=== PATIENT | male | born 1945 | race Caucasian/White ===

== ENCOUNTER 2017-02-13 11:42 | Inpatient (IN) | payer OTHER, MEDICARE ==
[~2017-02-13] VITALS: Ht 185.4 cm; Wt 82.2 kg
[~2017-02-13 11:42] MED LIST: AMCIN.1%T TOPICAL; ASPI81CH37 CHEW; ATOR1TAB18 PO; ATOR20TA15 PO; BACT800T5 PO; CIPR-9 PO; CLOP75TA PO; DONE10TA7 PO; DULO1CAP3 PO; DULO20 PO; FERR200T PO; GABA100C4 PO; GABA300C5 PO; GLIP5TAB8 PO; HYDR-3516 PO; HYDR-3533 PO; HYDR-3580 PO; ISOS30TA3 PO; LISI-519 PO; LOTR1CRE3 TOPICAL; METF1000 PO; METF500T PO; METO-426 PO; MIRT1TAB PO; MIRT30TA PO; OMEP20TA PO; PLAV75TA29 PO; PRIL20CA9 PO; SITA1TAB2 PO; SITA25 PO; TAMS5CAP PO; ZOFR4TAB PO
[2017-02-13 11:45] VITALS: BP 134/81; PULSE 78; RESP 16; TEMP 98.4; O2SAT 98
[2017-02-13 12:57] LABS: AUTOMATED NEUTROPHIL # 4.4 TH/MM3 (1.8-7.7); BASOPHIL % 0.5 % (0.0-2.0); EOSINOPHIL # 0.1 TH/MM3 (0-0.4); EOSINOPHIL % 1.8 % (0.0-4.0); HEMATOCRIT 39.3 % (39.0-51.0); LYMPHOCYTE # 1.6 TH/MM3 (1.0-4.8); MEAN CELL VOLUME 72.8 FL (80.0-100.0); MEAN CORPUSCULAR HEMOGLOBIN 23.3 PG (27.0-34.0); MONO % 6.9 % (0.0-8.0); NEUT % 66.8 % (16.0-70.0); PLATELET COUNT 272 TH/MM3 (150-450); RED CELL DISTRIBUTION WIDTH 17.6 % (11.6-17.2); WHITE BLOOD COUNT 6.6 TH/MM3 (4.0-11.0)
[2017-02-13] MEDS ORDERED: SODIUM CHLORIDE 0.9% FLUSH 10 ML FLUSH IVF PRN (13:00)
--- NOTE | 2017-02-13 13:05 | RADRPT ---
EXAM DATE/TIME: 02/13/2017 12:56 [facility] COMPARISON: CHEST SINGLE AP, August 31, 2016, 12:01. INDICATIONS : Chest pain and right arm numbness MEDICAL HISTORY : Myocardial infarction. Hypertension Hypercholesterolemia. Sleep Apnea, [place] SURGICAL HISTORY : CABG. Coronary artery stent. Nerve stimulator in back ENCOUNTER: Initial ACUITY: 2 days PAIN SCORE: 4/10 LOCATION: chest FINDINGS: A single view of the chest demonstrates the lungs to be symmetrically aerated without evidence of mas s, infiltrate or effusion. The heart is mildly enlarged. Median sternotomy wires. Stimulator device overlying the thoracic spine. Osseous structures are intact. CONCLUSION: Mild cardiomegaly. Clear lungs. Massimo Shaver Jr., MD on February 13, 2017 at 13:03 Board Certified Radiologist. This report was verified electronically.
[2017-02-13 13:07] LABS: CHLORIDE 97 MEQ/L (98-107); POTASSIUM 3.5 MEQ/L (3.5-5.1); SODIUM (NA) 132 MEQ/L (136-145)
[2017-02-13 13:10] LABS: ANION GAP 12 MEQ/L (5-15); BICARBONATE 22.6 MEQ/L (21.0-32.0)
[2017-02-13 13:17] LABS: HEMO FLAGS AUTO DIFF
[2017-02-13 13:23] VITALS: BP 121/75; PULSE 80; RESP 16; O2SAT 98
[2017-02-13 13:26] LABS: ALKALINE PHOSPHATASE 88 U/L (45-117); ALT (GPT) 24 U/L (12-78); AST (GOT) 12 U/L (15-37); BLOOD UREA NITROGEN 16 MG/DL (7-18); GLOMERULAR FILTRATION RATE 60 ML/MIN (>89); TOTAL BILIRUBIN ADULT 0.5 MG/DL (0.2-1.0)
[2017-02-13 13:27] LABS: APTT (PATIENT) 24.2 SEC (24.3-30.1); OVALOCYTES 1+ (NORMAL); PROTHROMBIN TIME - PATIENT 10.9 SEC (9.8-11.6); SCAN/DIFF AUTO DIFF CONFIRMED; TEARDROP RBCS 1+ (NORMAL)
--- NOTE | 2017-02-13 13:46 | PD ---
HPI Chief Complaint: Numbness/Tingling Time Seen by Provider: 12:01 Travel History International Travel<30 days: No Contact w/Intl Traveler<30days: No Traveled to known affect area: No History of Present Illness HPI This is a 71-year-old man who presents to the emergency department complaining of numbness and weakness or clumsiness in the right hand that started this morning when he woke up. He's never had previous similar symptoms. A history of CAD. Does have diabetes as well. He's had a previous CABG. He's recently seen by Dr. Santana who describes abnormal heart rhythms for which she was referred to an ad copy writer. He has not followed up yet. He otherwise has been feeling generally well and healthy. No other complaints. History Past Medical History Narrative Medical CAD, CABG Diabetes Hypertension on hyperlipidemia Chronic back pain SVT Influenza Vaccination: Yes Social History Alcohol Use: No Tobacco Use: No Allergies-Medications (Allergen,Severity, Reaction): Coded Allergies: No Known Allergies (Verified , 05/14/16) Reported Meds & Prescriptions Reported Meds & Active Scripts Active Reported Atorvastatin (Atorvastatin Calcium) 80 Mg Tab 80 Mg PO HS Metformin (Metformin HCl) 1,000 Mg Tab 1,000 Mg PO BIDPC With meals Glipizide 5 Mg Tab 7.5 Mg PO BIDAC Take 30 minutes before a meal Donepezil 10 Mg Tab 10 Mg PO HS Januvia (Sitagliptin Phosphate) 100 Mg Tab 100 Mg PO DAILY Duloxetine DR (Duloxetine HCl) 60 Mg Capdr 60 Mg PO DAILY Gabapentin 300 Mg Cap 300 Mg PO TID Lisinopril 5 Mg Tab 5 Mg PO DAILY Omeprazole 20 Mg Tab 20 Mg PO BID Metoprolol Tartrate 75 Mg Tab 75 Mg PO BID Plavix (Clopidogrel Bisulfate) 75 Mg Tab 75 Mg PO DAILY Review of Systems Except as stated in HPI: all other systems reviewed are Neg Physical Exam Narrative GENERAL: Well-appearing 71 year-old woman, no acute distress. SKIN: Focused skin assessment warm/dry. HEAD: Atraumatic. Normocephalic. EYES: Pupils equal and round. No scleral icterus. No injection or drainage. ENT: No nasal bleeding or discharge. Mucous membranes pink and moist. NECK: Trachea midline. No JVD. CARDIOVASCULAR: Regular rate and rhythm. No murmur appreciated. RESPIRATORY: No accessory muscle use. Clear to auscultation. Breath sounds equal bilaterally. GASTROINTESTINAL: Abdomen soft, non-tender, nondistended. Hepatic and splenic margins not palpable. MUSCULOSKELETAL: No obvious deformities. No clubbing. No cyanosis. No edema. NEUROLOGICAL: Awake and alert. No obvious cranial nerve deficits. Abnormal sensation in the distal extremity was particularly in the first second third digits on the palmar side. Weakness in compo caster strength. Weakness and opposition of the thumb. PSYCHIATRIC: Appropriate mood and affect; insight and judgment normal. Data Data Last Documented VS Vital Signs Date Time Temp Pulse Resp B/P (MAP) Pulse Ox O2 Delivery O2 Flow Rate FiO2 02/13/17 13:23 16 98 Room Air 02/13/17 13:23 80 121/75 (90) 02/13/17 11:45 98.4 Orders Orders Electrocardiogram (02/13/17 12:47) Prothrombin Time / Inr (Pt) (02/13/17 12:47) Act Partial Throm Time (Ptt) (02/13/17 12:47) Complete Blood Count With Diff (02/13/17 12:47) Comprehensive Metabolic Panel (02/13/17 12:47) Troponin I (02/13/17 12:47) Chest, Single Ap (02/13/17 12:47) Ecg Monitoring (02/13/17 12:47) Iv Access Insert/Monitor (02/13/17 12:47) Oximetry (02/13/17 12:47) Sodium Chloride 0.9% Flush (Ns Flush) (02/13/17 13:00) Ct Brain W/O Iv Contrast(Rout) (02/13/17 ) Insulin Aspart Inj (Novolog Inj) (02/13/17 14:30) Admit Order (Ed Use Only) (02/13/17 ) Consult Neurology (02/13/17 ) Labs Laboratory Tests Test 02/13/17 12:00 White Blood Count 6.6 TH/MM3 Red Blood Count 5.40 MIL/MM3 Hemoglobin 12.6 GM/DL Hematocrit 39.3 % Mean Corpuscular Volume 72.8 FL Mean Corpuscular Hemoglobin 23.3 PG Mean Corpuscular Hemoglobin Concent 32.0 % Red Cell Distribution Width 17.6 % Platelet Count 272 TH/MM3 Mean Platelet Volume 8.9 FL Neutrophils (%) (Auto) 66.8 % Lymphocytes (%) (Auto) 24.0 % Monocytes (%) (Auto) 6.9 % Eosinophils (%) (Auto) 1.8 % Basophils (%) (Auto) 0.5 % Neutrophils # (Auto) 4.4 TH/MM3 Lymphocytes # (Auto) 1.6 TH/MM3 Monocytes # (Auto) 0.5 TH/MM3 Eosinophils # (Auto) 0.1 TH/MM3 Basophils # (Auto) 0.0 TH/MM3 CBC Comment AUTO DIFF Differential Comment AUTO DIFF CONFIRMED Tear Drop Cells 1+ Ovalocytes 1+ Prothrombin Time 10.9 SEC Prothromb Time International Ratio 1.0 RATIO Activated Partial Thromboplast Time 24.2 SEC Blood Urea Nitrogen 16 MG/DL Creatinine 1.20 MG/DL Random Glucose 487 MG/DL Total Protein 7.8 GM/DL Albumin 3.6 GM/DL Calcium Level 9.5 MG/DL Alkaline Phosphatase 88 U/L Aspartate Amino Transf (AST/SGOT) 12 U/L Alanine Aminotransferase (ALT/SGPT) 24 U/L Total Bilirubin 0.5 MG/DL Sodium Level 132 MEQ/L Potassium Level 3.5 MEQ/L Chloride Level 97 MEQ/L Carbon Dioxide Level 22.6 MEQ/L Anion Gap 12 MEQ/L Estimat Glomerular Filtration Rate 60 ML/MIN Troponin I LESS THAN 0.02 NG/ML MDM Medical Decision Making Medical Screen Exam Complete: Yes Emergency Medical Condition: Yes Interpretation(s) My review of EKG: Normal sinus rhythm at a rate of 76, leftward axis, normal normal, nonspecific lateral ST depressions of unclear etiology. No definite evidence of acute ischemia. Differential Diagnosis CVA, radiculopathy, paresthesias, neurapraxia, other Narrative Course Medical decision making This is a 71 year-old woman presents emergent arm weakness and numbness and tingling in his right arm. I spoke with Dr. Santana, the abnormal finding on his Holter monitor was in SVT that he sustained for 4 minutes. He did not have A. fib. He has some risk factors for stroke including CAD and diabetes. He has a spinal stimulator which precludes MRI in the emergency department. We'll check labs, CT, x-ray, will plan for admission. He could potentially have an MRI 2-year-old shot at all. He does not how to do this. Ischemic try to get the remote, and hematocrit contact the electro mechanical technician. Diagnosis Primary Impression: Arm paresthesia, right Viel,Jourdan C. MD Feb 13, 2017 13:46
--- NOTE | 2017-02-13 13:52 | RADRPT ---
EXAM DATE/TIME: 02/13/2017 13:35 [facility] COMPARISON: CT BRAIN W/O CONTRAST, September 19, 2015, 21:36. INDICATIONS : Right forearm and hand numbness since this morning. Evaluate for cerebrovascular accident. RADIATION DOSE: 65.05 CTDIvol (mGy) MEDICAL HISTORY : Dementia. Myocardial infarction. Cerebrovascular disease.Hypertension. SURGICAL HISTORY : CABG Appendectomy. ENCOUNTER: Initial ACUITY: 1 day PAIN SCALE: 0/10 LOCATION: cranial TECHNIQUE: Multiple contiguous axial images were obtained of the head. Using automated exposure control and adj ustment of the mA and/or kV according to patient size, radiation dose was kept as low as reasonably a chievable to obtain optimal diagnostic quality images. DICOM format image data is available electro nically for review and comparison. FINDINGS: There are prominent internal carotid artery calcifications bilaterally. Ventricles and cisterns are o f normal size and configuration. No hemorrhage, infarct, or mass. CONCLUSION: No acute disease. Carlos Hampton MD on February 13, 2017 at 13:50 Board Certified Radiologist. This report was verified electronically.
[2017-02-13] MEDS ORDERED: INSULIN ASPART 1,000 UNITS/10 ML VIAL SQ ONE (14:30)
[2017-02-13] MEDS ORDERED: SODIUM CHLORIDE 0.9% FLUSH 5 ML FLUSH IV FLUSH PRN (14:30)
[2017-02-13] MEDS ORDERED: GLUCAGON 1 MG/ML VIAL OTHER PRN (14:30)
[2017-02-13] MEDS ORDERED: DEXTROSE 50% IN WATER 50 ML VIAL(D50) IV PUSH PRN (14:30)
[2017-02-13 14:52] VITALS: BP 129/77; PULSE 78; RESP 16; O2SAT 98
[2017-02-13] MEDS: ENOXAPARIN SODIUM 40 MG/0.4 ML SYRINGE SQ SCH (15:21)
[2017-02-13] MEDS ORDERED: INSULIN ASPART SUPPLEMENTAL SCALE SQ SCH (16:00)
[2017-02-13 17:17] VITALS: O2SAT 98
--- NOTE | 2017-02-13 18:14 | HHI.HP ---
[facility] Service [facility] Primary Care Physician Leo Raines MD Admission Diagnosis right arm weakness and numbness Diagnoses: (1) Right arm numbness and weakness Diagnosis: Principal (2) Diabetes mellitus with hyperglycemia Diagnosis: Principal Chief Complaint: R arm numbness and weakness Travel History International Travel<30 Days: No Contact w/Intl Traveler <30 Da: No Traveled to Known Affected Are: No History of Present Illness Written by Chel Haile PA-C acting as scribe for Dr. Meeks on 02/13 at ~ 1740. 71-year-old male with history of coronary artery disease, SVT, diabetes, hypertension, hyperlipidemia, chronic back pain with nerve stimulator presents with complaint of right arm numbness and weakness/loss of coordination. The patient states he woke up at 7:30 AM and noticed that his right hand was numb and then further noticed that he was numb over the right forearm. He states he has loss of coordination/weakness in the right hand primarily between the right thumb and index finger stating he cannot turn the ignition in the car or pull the lever. He states he spilled coffee and water on himself because of it this morning. Denies any injury to his right elbow. 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 He denies any headache, altered speech, dysphagia, lightheadedness, or dizziness. He denies any recent fevers or chills, cold symptoms. Denies any shortness of breath. He states he had several sharp pains in his chest yesterday which is normal for him but also states his heart was skipping. He follows with microbiology lab manager Dr. Santana. Patient denies any recent medication changes and has been compliant with his medications. Review of Systems Except as stated in HPI: all other systems reviewed are Neg Past Family Social History Past Medical History Coronary artery disease Diabetes Hypertension Hyperlipidemia Chronic back pain SVT dementia Past Surgical History 5 vessel CABG, stents 5 back surgeries Left eye surgery Left shoulder surgery Appendectomy Reported Medications Atorvastatin (Atorvastatin Calcium) 80 Mg Tab 80 Mg PO HS Metformin (Metformin HCl) 1,000 Mg Tab 1,000 Mg PO BIDPC With meals Glipizide 5 Mg Tab 7.5 Mg PO BIDAC Take 30 minutes before a meal Donepezil 10 Mg Tab 10 Mg PO HS Januvia (Sitagliptin Phosphate) 100 Mg Tab 100 Mg PO DAILY Duloxetine DR (Duloxetine HCl) 60 Mg Capdr 60 Mg PO DAILY Gabapentin 300 Mg Cap 300 Mg PO TID Lisinopril 5 Mg Tab 5 Mg PO DAILY Omeprazole 20 Mg Tab 20 Mg PO BID Metoprolol Tartrate 75 Mg Tab 75 Mg PO BID Plavix (Clopidogrel Bisulfate) 75 Mg Tab 75 Mg PO DAILY Allergies: Coded Allergies: No Known Allergies (Verified , 05/14/16) Family History Father: of CHF at age 81. Mother: Vascular dementia Middle sister: 5-6 months ago from an IN Older sister: Alzheimer's Social History Denies history of tobacco use. Denies alcohol use. Denies illicit drug use. Physical Exam Vital Signs Vital Signs Date Time Temp Pulse Resp B/P (MAP) Pulse Ox O2 Delivery O2 Flow Rate FiO2 02/13/17 17:17 98 21 02/13/17 15:08 02/13/17 14:52 78 16 129/77 (94) 98 Room Air 02/13/17 13:23 16 98 Room Air 02/13/17 13:23 80 16 121/75 (90) 98 Room Air 02/13/17 11:45 98.4 78 16 134/81 (98) 98 Physical Exam GENERAL: This is a well-nourished, well-developed patient, in no apparent distress. SKIN: No rashes, ecchymoses or lesions. Warm and dry. HEAD: Atraumatic. Normocephalic. EYES: Pupils equal round. ENT: MMM. Airway patent. NECK: Trachea midline. No carotid bruits. CARDIOVASCULAR: Regular rate and rhythm without murmurs, gallops, or rubs. RESPIRATORY: Clear to auscultation. Breath sounds equal bilaterally. No wheezes , rales, or rhonchi. GASTROINTESTINAL: Abdomen soft, non-tender, nondistended. MUSCULOSKELETAL: No lower extremity edema bilaterally. NEUROLOGICAL: Awake and alert. No obvious cranial nerve deficits. Normal speech. Decreased sensation over the R hand digits compared to left. Weak in R hand compared to normal strength on Left. Equal patellar reflexes bilaterally. R leg seems slightly weaker than left. PSYCHIATRIC: Mildly anxious mood with tearful affect. Laboratory Laboratory Tests Test 02/13/17 12:00 White Blood Count 6.6 Red Blood Count 5.40 Hemoglobin 12.6 Hematocrit 39.3 Mean Corpuscular Volume 72.8 Mean Corpuscular Hemoglobin 23.3 Mean Corpuscular Hemoglobin Concent 32.0 Red Cell Distribution Width 17.6 Platelet Count 272 Mean Platelet Volume 8.9 Neutrophils (%) (Auto) 66.8 Lymphocytes (%) (Auto) 24.0 Monocytes (%) (Auto) 6.9 Eosinophils (%) (Auto) 1.8 Basophils (%) (Auto) 0.5 Neutrophils # (Auto) 4.4 Lymphocytes # (Auto) 1.6 Monocytes # (Auto) 0.5 Eosinophils # (Auto) 0.1 Basophils # (Auto) 0.0 CBC Comment AUTO DIFF Differential Comment AUTO DIFF CONFIRMED Tear Drop Cells 1+ Ovalocytes 1+ Prothrombin Time 10.9 Prothromb Time International Ratio 1.0 Activated Partial Thromboplast Time 24.2 Blood Urea Nitrogen 16 Creatinine 1.20 Random Glucose 487 Total Protein 7.8 Albumin 3.6 Calcium Level 9.5 Alkaline Phosphatase 88 Aspartate Amino Transf (AST/SGOT) 12 Alanine Aminotransferase (ALT/SGPT) 24 Total Bilirubin 0.5 Sodium Level 132 Potassium Level 3.5 Chloride Level 97 Carbon Dioxide Level 22.6 Anion Gap 12 Estimat Glomerular Filtration Rate 60 Troponin I LESS THAN 0.02 Result Diagram: 02/13/17 1200 02/13/17 1200 Imaging Last Impressions Chest X-Ray 02/13/17 1247 Signed Impressions: Service Date/Time: Monday, February 13, 2017 12:56 - CONCLUSION: Mild cardiomegaly. Clear lungs. Massimo Shaver Jr., MD Head CT 02/13/17 0000 Signed Impressions: Service Date/Time: Monday, February 13, 2017 13:35 - CONCLUSION: No acute disease. MD Paul Milan VTE Risk Assessment Paul VTE Risk Assessment: Mod/High Risk (score >= 2) Caprini Risk Assessment Model Point Value = 1 Point Value = 2 Point Value = 3 Point Value = 5 Age 41-60 Minor surgery BMI > 25 kg/m2 Swollen legs Varicose veins or History of unexplained or recurrent spontaneous Oral contraceptives or hormone replacement Sepsis (< 1 month) Serious lung disease, including pneumonia (< 1 month) Abnormal pulmonary function Acute myocardial infarction Congestive heart failure (< 1 month) History of inflammatory bowel disease Medical patient at bed rest Age 61-74 Arthroscopic surgery Major open surgery (> 45 min) Laparoscopic surgery (> 45 min) Malignancy Confined to bed (> 72 hours) Immobilizing plaster cast Central venous access Age >= 75 History of VTE Family history of VTE Factor V Leiden Prothrombin [id number] Lupus anticoagulant Anticardiolipin antibodies Elevated serum homocysteine Heparin-induced thrombocytopenia Other congenital or acquired thrombophilia Stroke (< 1 month) Elective arthroplasty Hip, pelvis, or leg fracture Acute spinal cord injury (< 1 month) Prophylaxis Regimen Total Risk Factor Score Risk Level Prophylaxis Regimen 0-1 Low Early ambulation 2 Moderate Order ONE of the following: *Sequential Compression Device (SCD) *Heparin 5000 units SQ BID 3-4 Higher Order ONE of the following medications: *Heparin 5000 units SQ TID *Enoxaparin/Lovenox 40 mg SQ daily (WT < 150 kg, CrCl > 30 mL/min) *Enoxaparin/Lovenox 30 mg SQ daily (WT < 150 kg, CrCl > 10-29 mL/min) *Enoxaparin/Lovenox 30 mg SQ BID (WT < 150 kg, CrCl > 30 mL/min) AND/OR *Sequential Compression Device (SCD) 5 or more Highest Order ONE of the following medications: *Heparin 5000 units SQ TID (Preferred with Epidurals) *Enoxaparin/Lovenox 40 mg SQ daily (WT < 150 kg, CrCl > 30 mL/min) *Enoxaparin/Lovenox 30 mg SQ daily (WT < 150 kg, CrCl > 10-29 mL/min) *Enoxaparin/Lovenox 30 mg SQ BID (WT < 150 kg, CrCl > 30 mL/min) AND *Sequential Compression Device (SCD) Assessment and Plan Assessment and Plan 71-year-old male with: Numbness and weakness in right arm: Possible stroke. Head CT normal. -Neuro consulted. Dr. Jefferson who has ordered MRI and MRA brain without contrast as patient is able to turn off his nerve stimulator. -Carotid US -Echo -B12 -PT and OT consults -Continue Plavix -Start baby aspirin daily -Lipid profile -Permissive HTN. -Neuro checks Palpitations: h/o SVT. EKG with nonspecific anterior and lateral ST-T changes which were present on past EKG on 09/15/16. Patient had some sharp chest pains yesterday but this is normal for him. Troponin is normal. Chest x-ray personally interpreted with mild cardiomegaly but no acute pulmonary abnormalities. Sternal wires present. -Monitor on telemetry -Continue metoprolol Diabetes with hyperglycemia: BGL 487. Patient received 6 units of regular insulin in the ED -Hemoglobin A1c -Hold oral medications -Accu-checks with SSI GI prophylaxis: Continue home omeprazole. DVT prophylaxis: Lovenox and SCDs Discussed Condition With ED physician, patient Physician Certification 2 Midnight Certification Type: Admission for Inpatient Services Order for Inpatient Services The services are ordered in accordance with Medicare regulations or non- Medicare payer requirements, as applicable. In the case of services not specified as inpatient-only, they are appropriately provided as inpatient services in accordance with the 2-midnight benchmark. Estimated LOS (days): 2 days is the estimated time the patient will need to remain in the hospital, assuming treatment plan goals are met and no additional complications. Post-Hospital Plan: Home Notes: This note was transcribed by scribe [Chel Haile PA-C]. I, Dr. Matti Meeks personally performed the history, physical exam, and medical decision making; and confirmed the accuracy of the information in the transcribed note. Authenticated by Dr. Matti Meeks on 02/14/17 at 19:52. Chel Haile Feb 13, 2017 18:14 Matti Meeks MD Feb 14, 2017 19:53
[2017-02-13 20:00] VITALS: BP 105/67; PULSE 86; RESP 16; TEMP 98.6; O2SAT 93
[2017-02-13 20:50] VITALS: O2SAT 95
[2017-02-13] MEDS ORDERED: ACETAMINOPHEN 325 MG TAB PO ONE (22:00)
[2017-02-13] MEDS: ATORVASTATIN 40 MG TAB PO SCH (22:06)
[2017-02-13] MEDS: DONEPEZIL HCL 5 MG TAB PO SCH (22:06)
[2017-02-13] MEDS: SODIUM CHLORIDE 0.9% FLUSH 5 ML FLUSH IV FLUSH SCH (22:07)
[2017-02-13] MEDS: METOPROLOL TARTRATE 25 MG TAB PO SCH (22:07)
[2017-02-13] MEDS: PANTOPRAZOLE SOD 20 MG DELAYED RELEASE TAB PO SCH (22:07)
[2017-02-13] MEDS: INSULIN ASPART SUPPLEMENTAL SCALE SQ SCH (22:12)
[2017-02-13 22:26] LABS: HEMOGLOBIN A1a 1.4 %; HEMOGLOBIN A1b 1.5 %; HEMOGLOBIN Ao 72.5 %; HEMOGLOBIN F 2.2 %; HEMOGLOBIN LA1C 4.8 %; HEMOGLOBIN P3 5.9 %
[2017-02-14] VITALS (7 sets, daily range): BP systolic 97–121; BP diastolic 63–87; PULSE 56–83; RESP 16–20; TEMP 96.4–98.4; O2SAT 93–96
--- NOTE | 2017-02-14 08:23 | MB ---
cc: RYLEE CAMACHO M.D. DATE OF CONSULTATION: 02/13/2017 1944 REASON FOR CONSULTATION Right-sided upper extremity weakness. HISTORY OF PRESENT ILLNESS The patient is a 71-year-old man with a history of heart disease, bypass surgery, SVT, diabetes, hypertension, hyperlipidemia, chronic back pain with spinal cord stimulator, came in with woke up with right arm numbness and weakness. He noted when he tried to turn the car on or put it in gear he was not able to turn it on or put it in gear, feels numb. Denies any symptoms in the face or in the leg. PAST MEDICAL HISTORY He has a history as stated. The patient also probably has some mild dementia as well as some mild neuropathy. PAST SURGICAL HISTORY 1. CABG x 5 vessels and stents. 2. Five back surgeries. 3. Left eye surgery. He had a spring that he was changing a device in the light fixture, hit his left eye. 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 4. He has had left shoulder surgery. MEDICATION Home medicines: 1. Lipitor. 2. Metformin. 3. Glipizide. 4. Donepezil. 5. Januvia. 6. Duloxetine. 7. Gabapentin. 8. Lisinopril. 9. Omeprazole. 10. Metoprolol. 11. Plavix. ALLERGIES None reported. FAMILY HISTORY CHF in the father ___ with dementia in the mother. Sister of an GA and older sister of Alzheimer's. SOCIAL HISTORY He is . Does not smoke, does not drink or use any illicit drugs. PHYSICAL EXAMINATION VITAL SIGNS: Temperature 98.4, pulse 78, respiratory rate 16, blood pressure 129/77, sating 98% on room air. NECK: Neck is supple. Do not appreciate any significant bruits. HEART: Regular. NEURO: He is awake, alert, fluent. Right pupil is reactive. Left pupil is anisocoric, legally blind in the left eye but visual johnson are full on the right. Face symmetrical. Tongue midline. Motor ambriz he has significant weakness in the internal medicine veterinary technician and finger strength in the right hand. He has decreased sensation in the right hand. There is no significant drift, proximally he is intact. There is no leg lag. Toes withdraws. DTRs are 1+. Gait withheld. Cerebellar normal but slow on [id number] on the right. IMAGING STUDIES CT head no acute findings. Chest x-ray mild cardiomegaly. LABORATORY DATA Hemoglobin 12.6, platelets 272,000. Coag panel PTT 24.2. Chemistries, glucose 487. His hemoglobin A1c is pending. IMPRESSION Possible stroke in a 71-year-old man with multiple risk factors. He does have right hand weakness. He does have a spinal cord stimulator but he has this device and states ___ turn it off he can have an MRI of the brain and [id number], he will undergo carotid ultrasound as well. Hemoglobin A1c, lipid panel are pending. An echocardiogram is also in order. There will be PT and OT. He is already on Plavix. I would add a baby aspirin which he can take for 3 months with the Plavix and then we will let him resume on Plavix, depending on what the imaging shows. Currently he is on Lovenox for DVT prophylaxis. Currently on Lipitor but continue his Aricept, BP management and likely discharge planning if stable and workup completed in 24 hours. MD GREGORY French/CASI /6:41 PM /7:55 AM
[2017-02-14] MEDS: INSULIN ASPART SUPPLEMENTAL SCALE SQ SCH ×4 (08:27→20:49)
[2017-02-14] MEDS: ASPIRIN 81 MG CHEW TAB PO SCH (08:28)
[2017-02-14] MEDS: DULoxetine HCl DR 60 MG CAP PO SCH (08:28)
[2017-02-14] MEDS: PANTOPRAZOLE SOD 20 MG DELAYED RELEASE TAB PO SCH ×2 (08:28→20:48)
[2017-02-14] MEDS: CLOPIDOGREL 75 MG TAB PO SCH (08:28)
[2017-02-14] MEDS: METOPROLOL TARTRATE 25 MG TAB PO SCH ×2 (08:28→20:48)
[2017-02-14] MEDS: SODIUM CHLORIDE 0.9% FLUSH 5 ML FLUSH IV FLUSH SCH ×2 (08:29→20:55)
--- NOTE | 2017-02-14 08:38 | EKG ---
Date Performed: 02/13/2017 Time Performed: 13:06:22 PTAGE: 71 years EKG: Sinus rhythm NONSPECIFIC ST & T-WAVE ABNORMALITY ABNORMAL ECG PREVIOUS TRACING : 09/19/2015 20.06 No significant change from previous tracing noted. DOCTOR: Hernan Finney Interpretating Date/Time 02/14/2017 08:37:35
[2017-02-14 09:46] LABS: HDL CHOLESTEROL 28.5 MG/DL (40.0-60.0)
--- NOTE | 2017-02-14 10:56 | RADRPT ---
EXAM DATE/TIME: 02/14/2017 10:11 [facility] COMPARISON: No previous studies available for comparison. INDICATIONS : Transient ischemic attack. MEDICAL HISTORY : Myocardial infarction. Hypertension. Hypercholesterolemia. Glaucoma. CVA. Alzheimer's. coronary arter y disease. anticoagulant therapy. gerd. kidney stones. skin cancer. SURGICAL HISTORY : Appendectomy. CABG. Cardiac stents. Nerve stimulator implant. Right knee surgery. Right shoulder surgery. Left eye surgery. ENCOUNTER: Initial ACUITY: 1 day PAIN SCORE: 0/10 LOCATION: Bilateral neck PEAK SYSTOLIC VELOCITIES (cm/sec): ICA/CCA RATIO: Right: 1.1 Left: 0.8 ICA: Right: 95 Left: 84 CCA: Right: 85 Left: 103 ECA: Right: 78 Left: 81 VERTEBRAL: Right: 44 antegrade Left: 36 antegrade Elevated flow velocities and ICA/CCA ratios have been found to correlate with increased degrees of vessel stenosis, calculated as percentage of diameter relative to a normal segment of distal ICA/CCA FINDINGS: RIGHT CAROTID: No significant stenosis is visualized. There is mild atherosclerotic plaquing at the bifurcation. Th e waveforms are within normal limits. LEFT CAROTID: No significant stenosis is visualized. There is mild calcified atherosclerotic plaque at the bifurcat ion. The waveforms are within normal limits. VERTEBRAL ARTERIES: Antegrade flow is seen in both vertebral arteries. MISCELLANEOUS: None. CONCLUSION: 1. Calcified atherosclerotic plaque at the bifurcations. No hemodynamically significant carotid arter y stenosis identified. Ag Anderson MD on February 14, 2017 at 10:53 Board Certified Radiologist. This report was verified electronically.
[2017-02-14] MEDS: ENOXAPARIN SODIUM 40 MG/0.4 ML SYRINGE SQ SCH (15:51)
--- NOTE | 2017-02-14 16:16 | RADRPT ---
EXAM DATE/TIME: 02/14/2017 15:19 [facility] COMPARISON: MRI BRAIN W & W/O CONTRAST, October 17, 2013, 11:13. INDICATIONS : CVA. Right sided weakness. MEDICAL HISTORY : Hypertension. Diabetes mellitus type 2. SURGICAL HISTORY : Appendectomy. Neurostimulator, lower back and left shoulder. ENCOUNTER: Initial ACUITY: 1 day PAIN SCORE: 0/10 LOCATION: Head. Please note a normal MRA of the brain does not entirely exclude the possibility of a small aneurysm, nor the possibility of distal intracranial vessel disease. TECHNIQUE: 3D time of flight MRA was performed. Source images, multiplanar STS MIP, and 3D volume MIP reconstru ctions were reviewed. FINDINGS: There is excellent visualization of the major intracranial arteries out to the second-order branch ve ssels. There is no evidence for aneurysm, vessel truncation or stenosis, and no evidence for vascula r malformation. CONCLUSION: 1. Negative examination. Ag Anderson MD on February 14, 2017 at 16:13 Board Certified Radiologist. This report was verified electronically.
--- NOTE | 2017-02-14 16:19 | RADRPT ---
EXAM DATE/TIME: 02/14/2017 15:19 [facility] COMPARISON: MRI BRAIN W & W/O CONTRAST, October 17, 2013, 11:13. INDICATIONS : CVA. Right sided numbness. MEDICAL HISTORY : Diabetes mellitus type 2. Hypertension. SURGICAL HISTORY : Appendectomy. Neurostimulator, lower back and left shoulder. ENCOUNTER: Initial ACUITY: 1 day PAIN SCORE: 0/10 LOCATION: Head. TECHNIQUE: Multiplanar, multisequence MRI of the brain was performed without contrast. FINDINGS: CEREBRUM: The ventricles are normal for age. No evidence of midline shift, mass lesion, hemorrhage or acute in farction. No extraaxial fluid collections are seen. The pituitary gland and suprasellar cistern are normal in configuration. WHITE MATTER: There some scattered areas of increased T2 signal consistent with mild microvascular ischemic demyeli cocopah change. No significant signal abnormalities are seen in the white matter. POSTERIOR FOSSA: The cerebellum and brainstem are intact. The 4th ventricle is midline. The cerebellopontine angle is unremarkable. The cerebellar tonsils are normal in position. DIFFUSION IMAGING: No focal areas of restricted diffusion are seen. No evidence of acute infarction. EXTRACRANIAL: The visualized portions of the orbits and paranasal sinuses are unremarkable. CONCLUSION: 1. No acute intracranial abnormality. 2. Nonspecific white matter changes. 3. Stable compared to previous dated 10/17/13. Ag Anderson MD on February 14, 2017 at 16:14 Board Certified Radiologist. This report was verified electronically.
[2017-02-14] MEDS ORDERED: INSULIN HUMAN REGULAR 1,000 UNITS/10 ML VIAL IV PUSH ONE (16:30)
--- NOTE | 2017-02-14 16:46 | ECHRPT ---
Indication: CVA/TIA CONCLUSIONS Normal left ventricular size. Wall thickness is normal. No regional wall motion abnormalities are present. The left atrial size is moderately dilated. Mild aortic dilatation at the level of the sinuses of Valsalva. Dilated proximal ascending aorta. Mild thickening of the mitral valve leaflets. Moderate mitral valve regurgitation. No mitral valve stenosis. Phaf-la-uctnlocu aortic valve regurgitation. Aortic valve sclerosis is present. There is mild tricuspid valve regurgitation. The estimated pulmonary arterial pressure is 35 mmHg. The pulmonary valve is not well visualized. BP: 103 / 65 HR: 78 Rhythm: Other MEASUREMENTS (Male / Female) Normal Values Technical Quality:Fair 2D ECHO LV Diastolic Diameter PLAX 5.0 cm 4.2 - 5.9 / 3.9 - 5.3 cm LV Systolic Diameter PLAX 3.7 cm IVS Diastolic Thickness 1.0 cm 0.6 - 1.0 / 0.6 - 0.9 cm LVPW Diastolic Thickness 1.0 cm 0.6 - 1.0 / 0.6 - 0.9 cm LV Relative Wall Thickness 0.4 RV Internal Dim ED PLAX 3.8 cm LVOT Diameter 2.3 cm LA Systolic Diameter LX 4.7 cm 3.0 - 4.0 / 2.7 - 3.8 cm LV Ejection Fraction MOD 4C 48.9 % LV Cardiac Index MOD 4C 1657.2 cm/minm LV Ejection Fraction 4C AL 51.6 % LV Cardiac Index 4C AL 1846.5 cm/minm M-MODE Aortic Root Diameter MM 4.4 cm AV Cusp Separation MM 2.6 cm DOPPLER AV Peak Velocity 105.0 cm/s AV Peak Gradient 4.4 mmHg AI Peak Velocity 366.7 cm/s AI Peak Gradient 53.8 mmHg AI Pressure Half Time 1792.3 ms LVOT Peak Velocity 93.8 cm/s LVOT Peak Gradient 3.5 mmHg AV Area Cont Eq pk 3.6 cm MV Area PHT 4.0 cm Mitral E Point Velocity 63.7 cm/s Mitral A Point Velocity 31.1 cm/s Mitral E to A Ratio 2.0 LV E' Lateral Velocity 15.4 cm/s Mitral E to LV E' Lateral Ratio 4.1 LV E' Septal Velocity 5.5 cm/s Mitral E to LV E' Septal Ratio 11.7 TV Peak Velocity 243.0 cm/s TR Peak Velocity 251.0 cm/s TR Peak Gradient 25.2 mmHg PV Peak Velocity 65.2 cm/s PV Peak Gradient 1.7 mmHg FINDINGS LEFT VENTRICLE The left ventricular systolic function is normal with an estimated ejection fraction in the range of 60-65%. Normal left ventricular size. Wall thickness is normal. No regional wall motion abnormalities are present. LEFT ATRIUM The left atrial size is moderately dilated. RIGHT ATRIUM The right atrial size is normal. ATRIAL SEPTUM Normal atrial septal thickness without atrial level shunting by limited color doppler interrogation. AORTA Mild aortic dilatation at the level of the sinuses of Valsalva. Dilated proximal ascending aorta. MITRAL VALVE Mild thickening of the mitral valve leaflets. Moderate mitral valve regurgitation. No mitral valve stenosis. AORTIC VALVE Xlom-fr-aumaoxbh aortic valve regurgitation. Aortic valve sclerosis is present. Trileaflet aortic valve. TRICUSPID VALVE There is mild tricuspid valve regurgitation. The estimated pulmonary arterial pressure is 35 mmHg. PULMONARY VALVE The pulmonary valve is not well visualized. VESSELS The inferior vena cava is normal in size. PERICARDIUM No pericardial effusion. Jourdan Murry MD, FACC (Electronically Signed) Final Date:14 February 2017 16:45
[2017-02-14 17:04] LABS: POTASSIUM 3.8 MEQ/L (3.5-5.1)
[2017-02-14 17:08] LABS: BICARBONATE 27.6 MEQ/L (21.0-32.0)
[2017-02-14] MEDS: glipiZIDE 5 MG TAB PO SCH (17:30)
--- NOTE | 2017-02-14 19:59 | HHI.PR ---
Objective Vital Signs Date Time Temp Pulse Resp B/P (MAP) Pulse Ox O2 Delivery O2 Flow Rate FiO2 02/14/17 16:00 96.8 64 19 109/75 (86) 96 02/14/17 12:00 97.2 56 20 102/87 (92) 94 02/14/17 10:14 95 21 02/14/17 08:00 96.4 62 18 121/76 (91) 94 02/14/17 00:00 98.4 83 16 103/65 (78) 93 02/13/17 20:50 95 21 02/13/17 20:00 98.6 86 16 105/67 (80) 93 I/O 02/13/17 02/13/17 02/13/17 02/14/17 02/14/17 02/14/17 07:00 15:00 23:00 07:00 15:00 23:00 Intake Total 240 ml 220 ml 1070 ml Output Total 900 ml 200 ml 350 ml Balance -660 ml 20 ml 720 ml Intake Oral 240 ml 220 ml 1070 ml Output Urine Total 900 ml 200 ml 350 ml # Voids 2 # Bowel Movements 0 Result Diagram: 02/13/17 1200 02/14/17 4862 Objective Remarks GENERAL: patient sitting up in bed. Appears comfortable. Alert and oriented 3. SKIN: Warm and dry. HEAD: Normocephalic. EYES: No scleral icterus. No injection or drainage. NECK: Supple, trachea midline. No JVD. CARDIOVASCULAR: Regular rate and rhythm without murmurs, gallops, or rubs. RESPIRATORY: Breath sounds equal bilaterally. No accessory muscle use. GASTROINTESTINAL: Abdomen soft, non-tender, nondistended. MUSCULOSKELETAL: No cyanosis, or edema. BACK: Nontender without obvious deformity. No CVA tenderness. A/P Assessment and Plan ==02/14/17========= MRI, MRA reviewed with no acute findings. Plaque on carotid ultrasound but no significant stenosis. Echocardiogram without thrombus, however does have mild to moderate aortic regurgitation. Blood pressure appears controlled. //Diabetes with hyperglycemia. A1c 11.5. Uncontrolled. Adjust insulin regimen. Consult provider service representative. //mild to moderate aortic regurgitation. Afterload reduction. Blood pressure appears controlled. Follow-up with cardiology as outpatient. 71-year-old male with: //Numbness and weakness in right arm: Possible stroke. Head CT normal. -Neuro consulted. Dr. Jefferson who has ordered MRI and MRA brain without contrast as patient is able to turn off his nerve stimulator. -Carotid US -Echo -B12 -PT and OT consults -Continue Plavix -Start baby aspirin daily -Lipid profile -Permissive HTN. -Neuro checks -Neurology following. Follow-up recommendations. //mild to moderate aortic regurgitation. Afterload reduction. Blood pressure appears controlled. Follow-up with cardiology as outpatient. //Palpitations: h/o SVT. EKG with nonspecific anterior and lateral ST-T changes which were present on past EKG on 09/15/16. Patient had some sharp chest pains yesterday but this is normal for him. Troponin is normal. Chest x- ray personally interpreted with mild cardiomegaly but no acute pulmonary abnormalities. Sternal wires present. -Monitor on telemetry -Continue metoprolol //Diabetes with hyperglycemia: BGL 487. Patient received 6 units of regular insulin in the ED -Hemoglobin A1c 11.5 -Hold oral medications -Accu-checks with SSI //GI prophylaxis: Continue home omeprazole. DVT prophylaxis: Lovenox and SCDs Discharge Planning continued treatment of hyperglycemia.home when cleared by neurology. Matti Meeks MD Feb 14, 2017 19:59
[2017-02-14] MEDS: ATORVASTATIN 40 MG TAB PO SCH (20:48)
[2017-02-14] MEDS: DONEPEZIL HCL 5 MG TAB PO SCH (20:48)
[2017-02-14] MEDS: INSULIN DETEMIR 100 UNITS/ML VIAL SQ SCH (20:53)
[2017-02-14] MEDS ORDERED: ACETAMINOPHEN 325 MG TAB PO PRN (23:00)
[2017-02-15 00:34] VITALS: BP 111/78; PULSE 85; RESP 18; TEMP 96.7; O2SAT 96
[2017-02-15 06:56] LABS: AUTOMATED NEUTROPHIL # 3.1 TH/MM3 (1.8-7.7); BASOPHIL % 0.9 % (0.0-2.0); EOSINOPHIL # 0.1 TH/MM3 (0-0.4); EOSINOPHIL % 2.8 % (0.0-4.0); HEMATOCRIT 38.6 % (39.0-51.0); LYMPH % 32.9 % (9.0-44.0); LYMPHOCYTE # 1.7 TH/MM3 (1.0-4.8); MEAN CELL VOLUME 74.7 FL (80.0-100.0); MEAN CORPUSCULAR HEMOGLOBIN 23.5 PG (27.0-34.0); MEAN CORPUSCULAR HGB CONC 31.4 % (32.0-36.0); MONO % 7.7 % (0.0-8.0); NEUT % 55.7 % (16.0-70.0); PLATELET COUNT 231 TH/MM3 (150-450); RED BLOOD COUNT 5.16 MIL/MM3 (4.50-5.90); WHITE BLOOD COUNT 5.3 TH/MM3 (4.0-11.0)
[2017-02-15 07:01] LABS: HEMO FLAGS AUTO DIFF
[2017-02-15 07:22] LABS: POTASSIUM 3.6 MEQ/L (3.5-5.1)
[2017-02-15 07:32] LABS: OVALOCYTES 1+ (NORMAL); SCAN/DIFF AUTO DIFF CONFIRMED
[2017-02-15 07:45] LABS: MAGNESIUM 1.7 MG/DL (1.5-2.5)
[2017-02-15 08:18] VITALS: BP 101/69; PULSE 78; RESP 19; TEMP 96.7; O2SAT 96
[2017-02-15 08:25] VITALS: O2SAT 95
[2017-02-15] MEDS: SODIUM CHLORIDE 0.9% FLUSH 5 ML FLUSH IV FLUSH SCH (09:00)
[2017-02-15] MEDS: PANTOPRAZOLE SOD 20 MG DELAYED RELEASE TAB PO SCH (09:14)
[2017-02-15] MEDS: METOPROLOL TARTRATE 25 MG TAB PO SCH (09:14)
[2017-02-15] MEDS: DULoxetine HCl DR 60 MG CAP PO SCH (09:14)
[2017-02-15] MEDS: CLOPIDOGREL 75 MG TAB PO SCH (09:14)
[2017-02-15] MEDS: ASPIRIN 81 MG CHEW TAB PO SCH (09:14)
[2017-02-15] MEDS: glipiZIDE 5 MG TAB PO SCH ×2 (09:15→17:00)
[2017-02-15] MEDS: INSULIN ASPART SUPPLEMENTAL SCALE SQ SCH ×3 (09:35→16:00)
[2017-02-15] MEDS: INSULIN DETEMIR 100 UNITS/ML VIAL SQ SCH (09:36)
[2017-02-15 12:20] VITALS: BP 94/60; PULSE 57; RESP 19; TEMP 96.8; O2SAT 98
--- NOTE | 2017-02-15 12:45 | HHI.FF ---
Face to Face Verification Diagnosis: (1) Generalized weakness (2) CAD (coronary artery disease) (3) Diabetes mellitus (4) Right arm numbness and weakness Physical Therapy Order: Evaluate and Treat Occupational Therapy Order: Evaluate and Treat Home Health Nursing Order: Diabetic education Nursing assessment with vital signs Livery Car Driver Order: To Provide: Long range planning I have seen patient Allan Walker on 02/15/17. My clinical findings support the need for the requested home health care services because: Deconditioned w/ increased weakness I certify that my clinical findings support that this patient is homebound because: Unsafe to leave home unassisted Matti Meeks MD Feb 15, 2017 12:45
[2017-02-15] MEDS ORDERED: ASPI81CH25 PO (12:50)
[2017-02-15] MEDS ORDERED: GLIP5 PO (12:50)
[2017-02-15] MEDS ORDERED: NOVOLOGSS SQ (12:50)
[2017-02-15] MEDS ORDERED: LEVEMIR SQ (12:50)
[2017-02-15] MEDS ORDERED: WALKER/ADULT/FO1 MIS (12:52)
[2017-02-15] MEDS ORDERED: ALCO1PAD (13:35)
[2017-02-15] MEDS ORDERED: INSU1MIS (13:35)
[2017-02-15] MEDS ORDERED: BLOOD GLUCOSE T1 TES (13:35)
[2017-02-15] MEDS ORDERED: BLOOD GLUCOSE M1 KIT (13:35)
[2017-02-15] MEDS: metFORMIN HCL 500 MG TAB PO SCH ×2 (14:33→18:00)
[2017-02-15] MEDS: ENOXAPARIN SODIUM 40 MG/0.4 ML SYRINGE SQ SCH (14:34)
--- NOTE | 2017-02-18 16:11 | HHI.PR ---
Subjective Remarks Patient seen the morning of 02/15. Says he is feeling all right. Denies any chest pain or shortness of breath. Reports numbness in right hand slightly better. Objective Result Diagram: 02/15/17 0602/15/17619 Objective Remarks GENERAL: patient sitting up in bed. Appears comfortable. Alert and oriented 3. Exam unchanged. SKIN: Warm and dry. HEAD: Normocephalic. EYES: No scleral icterus. No injection or drainage. NECK: Supple, trachea midline. No JVD. CARDIOVASCULAR: Regular rate and rhythm without murmurs, gallops, or rubs. RESPIRATORY: Breath sounds equal bilaterally. No accessory muscle use. GASTROINTESTINAL: Abdomen soft, non-tender, nondistended. MUSCULOSKELETAL: No cyanosis, or edema. BACK: Nontender without obvious deformity. No CVA tenderness. A/P Assessment and Plan ==02/15/17========= //Diabetes with hyperglycemia. Appreciate paper slitter assistance. Discussed with patient. Will be managed at home with insulin, insulin sliding scale. 71-year-old male with: //Numbness and weakness in right arm: Possible stroke. Head CT normal. -Neuro consulted. Dr. Jefferson who has ordered MRI and MRA brain without contrast as patient is able to turn off his nerve stimulator. -Carotid US -Echo -B12 -PT and OT consults -Continue Plavix -Start baby aspirin daily -Lipid profile -Permissive HTN. -Neuro checks -Neurology following. Follow-up recommendations. -MRI, MRA reviewed with no acute findings. Plaque on carotid ultrasound but no significant stenosis. Echocardiogram without thrombus, however does have mild to moderate aortic regurgitation. Blood pressure appears controlled. //mild to moderate aortic regurgitation. Afterload reduction. Blood pressure appears controlled. Follow-up with Dr. Raines As outpatient. Will need regular monitoring. //Palpitations: h/o SVT. EKG with nonspecific anterior and lateral ST-T changes which were present on past EKG on 09/15/16. Patient had some sharp chest pains yesterday but this is normal for him. Troponin is normal. Chest x- ray personally interpreted with mild cardiomegaly but no acute pulmonary abnormalities. Sternal wires present. -Monitor on telemetry -Continue metoprolol //Diabetes with hyperglycemia: BGL 487. Patient received 6 units of regular insulin in the ED -Hemoglobin A1c 11.5 -Hold oral medications -Accu-checks with SSI //GI prophylaxis: Continue home omeprazole. DVT prophylaxis: Lovenox and SCDs Discharge Planning continued treatment of hyperglycemia.home when cleared by neurology. Discharge Planning continued treatment of hyperglycemia.home when cleared by neurology. Matti Meeks MD Feb 18, 2017 16:11
--- NOTE | 2017-02-18 16:14 | HHI.DS ---
Discharge Summary Admission Date Feb 13, 2017 at 14:29 Discharge Date: Feb 15, 2017 Admitting Diagnosis right arm weakness and numbness (1) Right arm numbness and weakness Diagnosis: Principal (2) Diabetes mellitus with hyperglycemia ICD Code: E11.65 - Type 2 diabetes mellitus with hyperglycemia Diagnosis: Principal Procedures No invasive procedures. Brief History - From Admission Written by Chel Haile PA-C acting as scribe for Dr. Meeks on 02/13 at ~ 1740. 71-year-old male with history of coronary artery disease, SVT, diabetes, hypertension, hyperlipidemia, chronic back pain with nerve stimulator presents with complaint of right arm numbness and weakness/loss of coordination. The patient states he woke up at 7:30 AM and noticed that his right hand was numb and then further noticed that he was numb over the right forearm. He states he has loss of coordination/weakness in the right hand primarily between the right thumb and index finger stating he cannot turn the ignition in the car or pull the lever. He states he spilled coffee and water on himself because of it this morning. Denies any injury to his right elbow. 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 He denies any headache, altered speech, dysphagia, lightheadedness, or dizziness. He denies any recent fevers or chills, cold symptoms. Denies any shortness of breath. He states he had several sharp pains in his chest yesterday which is normal for him but also states his heart was skipping. He follows with vehicle fare collector Dr. Santana. Patient denies any recent medication changes and has been compliant with his medications. CBC/BMP: 02/15/1720 02/15/17619 Imaging Last Impressions Head Magnetic Resonance Angiography 02/14/17 0000 Signed Impressions: Service Date/Time: January 15:19 - CONCLUSION: 1. Negative examination. Ag Anderson MD Carotid Artery Ultrasound 02/14/17 0000 Signed Impressions: Service Date/Time: January 10:11 - CONCLUSION: 1. Calcified atherosclerotic plaque at the bifurcations. No hemodynamically significant carotid artery stenosis identified. Ag Anderson MD Brain MRI 02/14/17 0000 Signed Impressions: Service Date/Time: January 15:19 - CONCLUSION: 1. No acute intracranial abnormality. 2. Nonspecific white matter changes. 3. Stable compared to previous dated 10/17/13. Ag Anderson MD Chest X-Ray 02/13/17 1247 Signed Impressions: Service Date/Time: Monday, February 13, 2017 12:56 - CONCLUSION: Mild cardiomegaly. Clear lungs. Massimo Shaver Jr., MD Head CT 02/13/17 0000 Signed Impressions: Service Date/Time: Saturday, February 13, 2017 13:35 - CONCLUSION: No acute disease. Carlos Hampton MD Hospital Course She was admitted for observation. Started on low-dose aspirin. Neurology was consulted. MRI with nonspecific findings unchanged from prior imaging. Plaque on carotid ultrasound, but no significant stenosis. Echocardiogram without thrombus. Patient does have mild to moderate aortic regurgitation, for which she should have regular follow-up echocardiograms with primary care. Diabetes found to be uncontrolled, blood glucose 487 on admission, A1c 11.5. Patient was placed on appropriate insulin regimen. For problem-based summary for most recent progress note, please see below. ==02/15/17========= //Diabetes with hyperglycemia. Appreciate prosthodontist/educator assistance. Discussed with patient. Will be managed at home with insulin, insulin sliding scale. 71-year-old male with: //Numbness and weakness in right arm: Possible stroke. Head CT normal. -Neuro consulted. Dr. Jefferson who has ordered MRI and MRA brain without contrast as patient is able to turn off his nerve stimulator. -Carotid US -Echo -B12 -PT and OT consults -Continue Plavix -Start baby aspirin daily -Lipid profile -Permissive HTN. -Neuro checks -Neurology following. Follow-up recommendations. -MRI, MRA reviewed with no acute findings. Plaque on carotid ultrasound but no significant stenosis. Echocardiogram without thrombus, however does have mild to moderate aortic regurgitation. Blood pressure appears controlled. //mild to moderate aortic regurgitation. Afterload reduction. Blood pressure appears controlled. Follow-up with Dr. Raines As outpatient. Will need regular monitoring. //Palpitations: h/o SVT. EKG with nonspecific anterior and lateral ST-T changes which were present on past EKG on 09/15/16. Patient had some sharp chest pains yesterday but this is normal for him. Troponin is normal. Chest x- ray personally interpreted with mild cardiomegaly but no acute pulmonary abnormalities. Sternal wires present. -Monitor on telemetry -Continue metoprolol //Diabetes with hyperglycemia: BGL 487. Patient received 6 units of regular insulin in the ED -Hemoglobin A1c 11.5 -Hold oral medications -Accu-checks with SSI //GI prophylaxis: Continue home omeprazole. DVT prophylaxis: Lovenox and SCDs Discharge Planning continued treatment of hyperglycemia.home when cleared by neurology. Pt Condition on Discharge: Good Discharge Disposition: Disch w/ Home Health Serv Discharge Time: > 30 minutes Discharge Instructions DIET: Follow Instructions for: Diabetic Diet Activities you can perform: Regular-No Restrictions Follow up Referrals: Neurology - 1 Month with Cristal Jefferson MD PCP Follow-up - 1 Week with Leo Raines MD New Medications: Alcohol Swabs (Alcohol Prep Pads) 70 % Pad PAD .ROUTE DIRECTED for Aseptic process, #1 0 Refills Blood Glucose Monitoring W/Device (Blood Glucose Monitoring W/Device) 1 Kit Kit KIT .ROUTE DIRECTED for Blood Sugar Management, #1 0 Refills Blood Glucose Test Strips (Blood Glucose Test Strips) Strips Strip EA .ROUTE DIRECTED for Blood Sugar Management, #1 0 Refills Insulin Syringe/Needle U-100 (Insulin Syringe/U-100/1Ml 28G X 1/2" 1 ml) 1 Mis Mis EA .ROUTE DIRECTED for Blood Sugar Management, #1 Walker/Adult/Folding (Walker/Adult/Folding) 1 Mis Mis EA .ROUTE DIRECTED, #1 0 Refills Aspirin (Aspirin Low Strength) 81 Mg Chew 81 MG PO DAILY for prevent stroke for 30 Days, EA Glipizide (Glucotrol) 5 Mg Tab 5 MG PO BID@ for Blood Sugar Management for 30 Days, TAB Take 30 minutes before a meal Insulin Aspart Inj (Novolog Inj) 100 Unit/Ml Inj 1 INJECTION SQ ACHS SLIDING SCALE for Blood Sugar Management for 30 Days, INJECTION Insulin Detemir Inj (Levemir Inj) 1,000 unit/ 10 ML Vial 12 UNITS SQ HS for Blood Sugar Management for 30 Days, INJECTION Do not mix with any other Insulin. Continued Medications: Atorvastatin (Atorvastatin) 80 Mg Tab 80 MG PO HS for Cholesterol Management, #30 TAB 0 Refills Clopidogrel (Plavix) 75 Mg Tab 75 MG PO DAILY for Blood Clot Prevention, #30 TAB 0 Refills Donepezil (Donepezil) 10 Mg Tab 10 MG PO HS for Dementia, #30 TAB [address] (Duloxetine DR) 60 Mg Capdr 60 MG PO DAILY, #30 CAP 0 Refills Gabapentin (Gabapentin) 300 Mg Cap 300 MG PO TID, #90 CAP 0 Refills Lisinopril (Lisinopril) 5 Mg Tab 5 MG PO DAILY for Blood Pressure Management, #30 TAB 0 Refills Metformin (Metformin) 1,000 Mg Tab 1000 MG PO BIDPC for Blood Sugar Management, #60 TAB 0 Refills With meals Metoprolol Tartrate (Metoprolol Tartrate) 75 Mg Tab 75 MG PO BID, #30 TAB 0 Refills Omeprazole (Omeprazole) 20 Mg Tab 20 MG PO BID, #30 TAB 0 Refills Discontinued Medications: Glipizide (Glipizide) 5 Mg Tab 7.5 MG PO BIDAC for Blood Sugar Management, #60 TAB 0 Refills Take 30 minutes before a meal Sitagliptin (Januvia) 100 Mg Tab 100 MG PO DAILY for Blood Sugar Management, #30 TAB 0 Refills Matti Meeks MD Feb 18, 2017 16:14
== END 2017-02-15 16:56 | disposition home or self-care (01) | DRG 93 ==
LOC: PHED 11:42 → PHEDA 14:24 → OBSVTOIN 14:29 → PH3A 14:57
PROVIDERS: ADMIT Internal Medicine; ATTEND Internal Medicine
DX: R20.0 Anesthesia of skin (principal); E11.65 Type 2 diabetes mellitus with hyperglycemia; F03.90 Unspecified dementia, unspecified severity, without behavioral disturbance, psychotic disturbance, mood disturbance, and anxiety; G62.9 Polyneuropathy, unspecified; I10 Essential (primary) hypertension; G89.29 Other chronic pain; I25.10 Atherosclerotic heart disease of native coronary artery without angina pectoris; Z95.1 Presence of aortocoronary bypass graft; M54.9 Dorsalgia, unspecified; Z79.84 Long term (current) use of oral hypoglycemic drugs; E78.5 Hyperlipidemia, unspecified; I35.1 Nonrheumatic aortic (valve) insufficiency; Z95.5 Presence of coronary angioplasty implant and graft; H54.8 Legal blindness, as defined in USA; Z82.49 Family history of ischemic heart disease and other diseases of the circulatory system
CPT/HCPCS: 70450; 70544; 70551; 71010; 80048; 80053; 80061; 80069; 82607; 82948; 83036; 83735; 84484; 85025; 85610; 85730; 93005; 93306; 93880; J1650; J1815

== ENCOUNTER 2017-03-06 15:33 | Observation (INO) | payer OTHER ==
[~2017-03-06] VITALS: Ht 185.4 cm; Wt 90.5 kg
[2017-03-06] VITALS (7 sets, daily range): BP systolic 90–110; BP diastolic 50–68; PULSE 58–74; RESP 16; TEMP 99.1; O2SAT 95–97
[~2017-03-06 15:33] MED LIST changes: +ALCO1PAD; -AMCIN.1%T TOPICAL; +ASPI81CH25 PO; -ASPI81CH37 CHEW; -ATOR20TA15 PO; -BACT800T5 PO; +BLOOD GLUCOSE M1 KIT; +BLOOD GLUCOSE T1 TES; -CIPR-9 PO; -CLOP75TA PO; -DULO20 PO; -FERR200T PO; -GABA100C4 PO; +GLIP5 PO; -GLIP5TAB8 PO; -HYDR-3516 PO; -HYDR-3533 PO; -HYDR-3580 PO; +INSU1MIS; -ISOS30TA3 PO; +LEVEMIR SQ; -LOTR1CRE3 TOPICAL; -METF500T PO; -MIRT1TAB PO; -MIRT30TA PO; +NOVOLOGSS SQ; -PRIL20CA9 PO; -SITA1TAB2 PO; -SITA25 PO; -TAMS5CAP PO; +WALKER/ADULT/FO1 MIS; -ZOFR4TAB PO
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
[2017-03-06] MEDS ORDERED: MORPHINE SULFATE 4 MG/ML INJ IV PUSH ONE (16:15)
[2017-03-06] MEDS ORDERED: metFORMIN HCL 500 MG TAB PO ONE (16:15)
[2017-03-06] MEDS ORDERED: SODIUM CHLORIDE 0.9% FLUSH 10 ML FLUSH IVF PRN (16:15)
[2017-03-06] MEDS ORDERED: SODIUM CHLORID 0.9% 500 ML INJ 500 ML IV ONE (16:15)
[2017-03-06] MEDS ORDERED: ASPIRIN 81 MG CHEW TAB PO ONE (16:15)
[2017-03-06] MEDS ORDERED: NITROGLYCERIN 2% OINT 1 GM PACKET TOP ONE (16:15)
[2017-03-06] MEDS ORDERED: ONDANSETRON HCL 4 MG/2 ML VIAL IV PUSH ONE (16:45)
[2017-03-06 16:53] LABS: AUTOMATED NEUTROPHIL # 4.6 TH/MM3 (1.8-7.7); BASOPHIL # 0.1 TH/MM3 (0-0.2); EOSINOPHIL # 0.2 TH/MM3 (0-0.4); EOSINOPHIL % 2.3 % (0.0-4.0); HEMATOCRIT 35.4 % (39.0-51.0); HEMO FLAGS DIFF FINAL; LYMPH % 25.1 % (9.0-44.0); LYMPHOCYTE # 1.8 TH/MM3 (1.0-4.8); MEAN CELL VOLUME 72.8 FL (80.0-100.0); MEAN CORPUSCULAR HEMOGLOBIN 22.9 PG (27.0-34.0); MEAN CORPUSCULAR HGB CONC 31.4 % (32.0-36.0); MONO % 8.6 % (0.0-8.0); PLATELET COUNT 227 TH/MM3 (150-450); RED BLOOD COUNT 4.86 MIL/MM3 (4.50-5.90); RED CELL DISTRIBUTION WIDTH 18.4 % (11.6-17.2); WHITE BLOOD COUNT 7.3 TH/MM3 (4.0-11.0)
--- NOTE | 2017-03-06 16:55 | RADRPT ---
EXAM DATE/TIME: 03/06/2017 16:34 [facility] COMPARISON: CHEST SINGLE AP, February 13, 2017, 12:56. INDICATIONS : Chest pain and shortness of breath. MEDICAL HISTORY : Hypercholesterolemia. Hypertension Myocardial infarction. Coronary artery disease, SURGICAL HISTORY : CABG. Cardiac cath, 2 stents. ENCOUNTER: Initial ACUITY: 1 day PAIN SCORE: 7/10 LOCATION: Bilateral chest FINDINGS: A single view of the chest demonstrates the lungs to be symmetrically aerated without evidence of mas s, infiltrate or effusion. Previous bypass with mild comes in clinically. Spinal stimulator.. [place] us structures are intact. CONCLUSION: Mild compensated cardiomegaly Tyrell Anderson MD FACR on March 06, 2017 at 16:52 Board Certified Radiologist. This report was verified electronically.
[2017-03-06 17:02] LABS: APTT (PATIENT) 23.7 SEC (24.3-30.1); PROTHROMBIN TIME - PATIENT 11.4 SEC (9.8-11.6)
[2017-03-06 17:16] LABS: ALT (GPT) 19 U/L (12-78); ANION GAP 11 MEQ/L (5-15); AST (GOT) 19 U/L (15-37); BICARBONATE 24.3 MEQ/L (21.0-32.0); BLOOD UREA NITROGEN 12 MG/DL (7-18); CHLORIDE 100 MEQ/L (98-107); GLOMERULAR FILTRATION RATE 65 ML/MIN (>89); MAGNESIUM 1.6 MG/DL (1.5-2.5); POTASSIUM 4.1 MEQ/L (3.5-5.1); SODIUM (NA) 135 MEQ/L (136-145)
[2017-03-06 17:19] LABS: ALKALINE PHOSPHATASE 69 U/L (45-117); TOTAL BILIRUBIN ADULT 0.5 MG/DL (0.2-1.0)
[2017-03-06 17:23] LABS: CREATINE KINASE 96 U/L (39-308)
--- NOTE | 2017-03-06 19:25 | PD ---
Data Data Last Documented VS Vital Signs Date Time Temp Pulse Resp B/P (MAP) Pulse Ox O2 Delivery O2 Flow Rate FiO2 03/06/17 17:19 97 Room Air 03/06/17 17:19 16 03/06/17 15:57 99.1 74 110/64 (79) Orders Orders Electrocardiogram (03/06/17 16:05) Ckmb (Isoenzyme) Profile (03/06/17 16:05) Complete Blood Count With Diff (03/06/17 16:05) Comprehensive Metabolic Panel (03/06/17 16:05) Magnesium (Mg) (03/06/17 16:05) Prothrombin Time / Inr (Pt) (03/06/17 16:05) Act Partial Throm Time (Ptt) (03/06/17 16:05) Troponin I (03/06/17 16:05) Chest, Single Ap (03/06/17 16:05) Ecg Monitoring (03/06/17 16:05) Bilateral Bp Monitoring (03/06/17 16:05) Iv Access Insert/Monitor (03/06/17 16:05) Oximetry (03/06/17 16:05) Oxygen Administration (03/06/17 16:05) Aspirin Chew (Aspirin Chew) (03/06/17 16:15) Morphine Inj (Morphine Inj) (03/06/17 16:15) Nitroglycerin 2% Oint (Nitroglycerin 2% (03/06/17 16:15) Sodium Chloride 0.9% Flush (Ns Flush) (03/06/17 16:15) Sodium Chlorid 0.9% 500 Ml Inj (Ns 500 M (03/06/17 16:15) Metformin (Glucophage) (03/06/17 16:15) Ondansetron Inj (Zofran Inj) (03/06/17 16:45) Admit Order (Ed Use Only) (03/06/17 ) Labs Laboratory Tests Test 03/06/17 14:20 White Blood Count 7.3 TH/MM3 Red Blood Count 4.86 MIL/MM3 Hemoglobin 11.1 GM/DL Hematocrit 35.4 % Mean Corpuscular Volume 72.8 FL Mean Corpuscular Hemoglobin 22.9 PG Mean Corpuscular Hemoglobin Concent 31.4 % Red Cell Distribution Width 18.4 % Platelet Count 227 TH/MM3 Mean Platelet Volume 8.6 FL Neutrophils (%) (Auto) 63.0 % Lymphocytes (%) (Auto) 25.1 % Monocytes (%) (Auto) 8.6 % Eosinophils (%) (Auto) 2.3 % Basophils (%) (Auto) 1.0 % Neutrophils # (Auto) 4.6 TH/MM3 Lymphocytes # (Auto) 1.8 TH/MM3 Monocytes # (Auto) 0.6 TH/MM3 Eosinophils # (Auto) 0.2 TH/MM3 Basophils # (Auto) 0.1 TH/MM3 CBC Comment DIFF FINAL Differential Comment Prothrombin Time 11.4 SEC Prothromb Time International Ratio 1.0 RATIO Activated Partial Thromboplast Time 23.7 SEC Blood Urea Nitrogen 12 MG/DL Creatinine 1.11 MG/DL Random Glucose 240 MG/DL Total Protein 7.1 GM/DL Albumin 3.4 GM/DL Calcium Level 8.4 MG/DL Magnesium Level 1.6 MG/DL Alkaline Phosphatase 69 U/L Aspartate Amino Transf (AST/SGOT) 19 U/L Alanine Aminotransferase (ALT/SGPT) 19 U/L Total Bilirubin 0.5 MG/DL Sodium Level 135 MEQ/L Potassium Level 4.1 MEQ/L Chloride Level 100 MEQ/L Carbon Dioxide Level 24.3 MEQ/L Anion Gap 11 MEQ/L Estimat Glomerular Filtration Rate 65 ML/MIN Total Creatine Kinase 96 U/L Troponin I LESS THAN 0.02 NG/ML MDM Supervised Visit with JAVIER: Yes Interpretation(s) Review of EKG, reviewed labs, reviewed x-ray. Narrative Course Medical decision making 71-year-old man presents with intermittent chest discomfort that's been ongoing in the past but worse for the past week or so. Seems to be worse with exertion. He follows with cardiology with Dr. Santana. He states he's had a heart catheter in the past year or so. He is also being followed for SVT and a plan for an ablation. Initial workup here is unremarkable. Symptoms are suggestive of angina, possibly unstable angina. He looks well. We'll plan admission to the chest pain Center for serial cardiac enzymes. Repeat stress testing at their discretion. Condition: Stable Jourdan Branham MD Mar 06, 2017 19:24
[2017-03-06] MEDS ORDERED: ACETAMINOPHEN 325 MG TAB PO ONE (22:00)
[2017-03-06] MEDS ORDERED: SODIUM CHLORIDE 0.9% FLUSH 10 ML FLUSH IV FLUSH PRN (22:00)
[2017-03-06 23:32] LABS: CREATINE KINASE 86 U/L (39-308)
[2017-03-07] VITALS (7 sets, daily range): BP systolic 99–115; BP diastolic 49–63; PULSE 54–67; RESP 16–20; TEMP 97.8–98.7; O2SAT 94–100
[2017-03-07] MEDS ORDERED: MORPHINE SULFATE 4 MG/ML INJ IV SCH (00:25)
[2017-03-07 02:32] LABS: CREATINE KINASE 82 U/L (39-308)
[2017-03-07] MEDS ORDERED: GLUCAGON 1 MG/ML VIAL IM/SQ PRN (07:45)
[2017-03-07] MEDS ORDERED: DEXTROSE 50% IN WATER 50 ML VIAL(D50) IV PRN (07:45)
[2017-03-07] MEDS: INSULIN ASPART SUPPLEMENTAL SCALE SQ SCH ×2 (08:00→14:47)
[2017-03-07] MEDS ORDERED: ACETAMINOPHEN/HYDROcodone 325 MG/5 MG TAB PO PRN (08:15)
[2017-03-07] MEDS ORDERED: PANTOPRAZOLE SOD 20 MG DELAYED RELEASE TAB PO SCH (09:00)
[2017-03-07] MEDS ORDERED: DULoxetine HCl DR 60 MG CAP PO SCH (09:00)
[2017-03-07] MEDS ORDERED: CLOPIDOGREL 75 MG TAB PO SCH (09:00)
[2017-03-07] MEDS ORDERED: METOPROLOL TARTRATE 25 MG TAB PO SCH (09:00)
[2017-03-07] MEDS ORDERED: SODIUM CHLORIDE 0.9% FLUSH 10 ML FLUSH IV FLUSH SCH (09:00)
[2017-03-07] MEDS ORDERED: LISINOPRIL 5 MG TAB PO SCH (09:00)
[2017-03-07] MEDS ORDERED: REGADENOSON INJ 0.4 MG/5 ML SYR ONE (10:28)
[2017-03-07] MEDS: GABAPENTIN 300 MG CAP PO SCH ×2 (11:44→13:00)
--- NOTE | 2017-03-07 11:46 | RADRPT ---
EXAM DATE/TIME: 03/07/2017 09:21 [facility] COMPARISON: MYOCARDIAL PERF PHARM SPECT, GATED W/EF, February 27, 2015, 10:41. INDICATIONS : Mid chest pain for one day. Angina. DOSE: 25.5 mCi Tc99m Myoview at stress. 8.7 mCi Tc99m Myoview at rest. 0.4 mg Lexiscan STRESS SYMPTOMS: None noted. EJECTION FRACTION: 62% MEDICAL HISTORY : Diabetes mellitus type 2. Alzheimer's. Cardiovascular disease SURGICAL HISTORY : CABG Appendectomy. ENCOUNTER: Initial ACUITY: 1 day PAIN SCALE: 2/10 LOCATION: Left chest TECHNIQUE: The patient underwent pharmacologic stress with infusion of prescribed dose. Continuous ECG tracing was monitored during stress. Gated SPECT imaging was performed after stress and conventional SPECT i maging was performed at rest. The examination was performed on a SPECT/CT scanner, both attenuation and non-corrected datasets were reviewed. FINDINGS: DISTRIBUTION: The maximum perfused segment at stress is in the mid anterolateral wall. PERFUSION STUDY: The pattern of perfusion at stress is within normal limits. GATED STUDY: There is intact wall motion and thickening without hypokinetic or dyskinetic segments. CONCLUSION: Normal examination. No evidence of infarct or ischemia. RISK CATEGORY: Low (<1% Annual Mortality Rate) Jourdan Villarreal MD on March 07, 2017 at 11:44 Board Certified Radiologist. This report was verified electronically.
--- NOTE | 2017-03-07 12:00 | HHI.HP ---
[facility] Primary Care Physician Leo Raines MD Chief Complaint Chest pain History of Present Illness This is a 71-year-old male with history of CAD with CABG 5 years ago and stenting [address] Karl Santana cardiology. He presents with a complaint of 2 weeks of intermittent left-sided chest pressure that is brought on by "lightest bit of exertion." Using lasting less than a few minutes. He states he was told by his sandal parts assembler to call the office or go to the ED if the discomfort lasts greater than 3 minutes. He states symptoms changed yesterday while he was lifting up a computer monitor. Similar discomfort but it lasted 10 minutes. He was nauseous and short of breath. No diaphoresis. States the symptoms do not feel similar to when he needed his bypass. Denies recent illness. Denies fevers or chills. States he is compliant with all his medications. Also states that he is scheduled to have an ablation on the of this month with Dr. Schaefer. Review of Systems General: Patient denies fevers, chills recent, and recent travel HEENT: Patient denies headache, sore throat, difficulty swallowing. Cardiovascular: Has the chest discomfort as mentioned above. Denies sensation of heart beating rapidly or irregularly. No syncope. Denies diaphoresis. Respiratory: He become short of breath. Denies inspirational chest discomfort. Denies coughing wheezing or hemoptysis. GI: He was nauseous a couple times. Patient denies vomiting, diarrhea, abdominal pain, bloody stools. Musculoskeletal: Patient denies joint pain or edema. Denies calf pain or edema. Neurovascular: Patient denies numbness, tingling, weakness in extremities. Denies headache. Endocrine: Denies polyuria and polydipsia. Hematologic: Denies easy bruising. Skin: Denies rash or itching. Past Family Social History Allergies: Coded Allergies: No Known Allergies (Verified , 03/06/17) Past Medical History CAD with CABG 5 years ago and stenting 2 since. Hypertension, hyperlipidemia, diabetes, paroxysmal SVT. Past Surgical History CABG. He's had cardiac catheterizations with stents. Reported Medications Reported Meds & Active Scripts Active Alcohol Prep Pads (Alcohol Swabs) 70 % Pad Pad .ROUTE DIRECTED Insulin Syringe/U-100/1Ml 28G X 1/2" 1 ml (Insulin Syringe/Needle U-100) 1 Mis Mis Ea .ROUTE DIRECTED Blood Glucose Test Strips Strips Strip Ea .ROUTE DIRECTED Blood Glucose Monitoring W/Device (Device) 1 Kit Kit Kit .ROUTE DIRECTED Walker/Adult/Folding (Device) 1 Mis Mis Ea .ROUTE DIRECTED Glucotrol (Glipizide) 5 Mg Tab 5 Mg PO BID@ 30 Days Take 30 minutes before a meal Aspirin Low Strength (Aspirin) 81 Mg Chew 81 Mg PO DAILY 30 Days Levemir Inj (Insulin Detemir) 1,000 unit/ 10 ML Vial 12 Units SQ HS 30 Days Do not mix with any other Insulin. Novolog Inj (Insulin Aspart) 100 Unit/Ml Inj 1 Injection SQ ACHS SLIDING SCALE 30 Days Reported Atorvastatin (Atorvastatin Calcium) 80 Mg Tab 80 Mg PO HS Metformin (Metformin HCl) 1,000 Mg Tab 1,000 Mg PO BIDPC With meals Donepezil 10 Mg Tab 10 Mg PO HS Duloxetine DR (Duloxetine HCl) 60 Mg Capdr 60 Mg PO DAILY Gabapentin 300 Mg Cap 300 Mg PO TID Lisinopril 5 Mg Tab 5 Mg PO DAILY Omeprazole 20 Mg Tab 20 Mg PO BID Metoprolol Tartrate 75 Mg Tab 75 Mg PO BID Plavix (Clopidogrel Bisulfate) 75 Mg Tab 75 Mg PO DAILY Active Ordered Medications Current Medications Medications (Trade) Dose Ordered Sig/Wale Route Start Time Stop Time Status Last Admin (NS Flush) 2 ml UNSCH PRN IV FLUSH 03/06/17 22:00 (NS Flush) 2 ml BID IV FLUSH 03/07/17 09:00 03/07/17 11:46 (NovoLOG SUPPLEMENTAL SCALE) 1 ACHS SLIDING SCALE SQ 03/07/17 08:00 (D50w (Vial) Inj) 25 ml UNSCH PRN IV 03/07/17 07:45 (Glucagon Inj) 1 mg UNSCH PRN IM/SQ 03/07/17 07:45 (Lipitor) 80 mg HS PO 03/07/17 21:00 (Plavix) 75 mg DAILY PO 03/07/17 09:00 03/07/17 11:44 (Aricept) 10 mg HS PO 03/07/17 21:00 (Cymbalta Dr) 60 mg DAILY PO 03/07/17 09:00 03/07/17 11:45 (Neurontin) 300 mg TID PO 03/07/17 09:00 03/07/17 11:44 (Prinivil) 5 mg DAILY PO 03/07/17 09:00 (Lopressor) 75 mg BID PO 03/07/17 09:00 (Protonix) 20 mg BID PO 03/07/17 09:00 03/07/17 11:45 (Paris 5-325 Mg) 1 tab Q4H PRN PO 03/07/17 08:15 03/07/17 09:04 Family History There is family history of CAD. Social History Patient is a nonsmoker. Denies alcohol or illicit drugs. Lives with his . Physical Exam Vital Signs Vital Signs Date Time Temp Pulse Resp B/P (MAP) Pulse Ox O2 Delivery O2 Flow Rate FiO2 03/07/17 11:49 100/60 (73) 03/07/17 10:04 0 03/07/17 08:02 97.8 57 20 109/63 (78) 100 03/07/17 04:00 98.7 67 18 110/51 (70) 97 03/07/17 00:20 98.7 64 16 99/49 (66) 96 03/06/17 23:24 65 16 103/68 (80) 97 Nasal Cannula 2.00 03/06/17 22:03 97 Nasal Cannula 2.00 03/06/17 22:00 70 16 108/62 (77) 97 Nasal Cannula 2.00 03/06/17 21:00 58 16 95/57 (70) 97 Nasal Cannula 2.00 03/06/17 19:00 61 16 90/50 (63) 96 Nasal Cannula 2.00 03/06/17 17:19 97 Room Air 03/06/17 17:19 16 97 Room Air 03/06/17 15:57 99.1 74 16 110/64 (79) 95 Physical Exam GENERAL: This is a well-nourished, well-developed patient, in no apparent distress. Patient speaks in clear complete sentences. Patient is pleasant. HEENT: Head is atraumatic and normocephalic. Neck is supple without lymphadenopathy and trachea is midline. No JVD or carotid bruits. CARDIOVASCULAR: Regular rate and rhythm without murmurs, gallops, or rubs. RESPIRATORY: Clear to auscultation. Breath sounds equal bilaterally. No wheezes , rales, or rhonchi. Chest wall is nontender. No use of accessory muscles. Well-healed scar over the sternum. GASTROINTESTINAL: Abdomen is nontender, nondistended. Abdomen soft. No obvious pulsatile mass or bruit. No CVA tenderness. Strong femoral pulses bilaterally. Normal bowel sounds in all quadrants. MUSCULOSKELETAL: Patient is moving upper and lower extremities freely. No calf tenderness or edema, no Homans sign. Strong pulses in upper and lower extremities. NEUROLOGICAL: Patient is alert and oriented. Cranial nerves 2-12 are grossly intact. No focal deficits and speech is clear. SKIN: No rash and turgor is normal. Laboratory Laboratory Tests Test 03/06/17 14:20 03/06/17 22:45 03/07/17 01:43 White Blood Count 7.3 Red Blood Count 4.86 Hemoglobin 11.1 Hematocrit 35.4 Mean Corpuscular Volume 72.8 Mean Corpuscular Hemoglobin 22.9 Mean Corpuscular Hemoglobin Concent 31.4 Red Cell Distribution Width 18.4 Platelet Count 227 Mean Platelet Volume 8.6 Neutrophils (%) (Auto) 63.0 Lymphocytes (%) (Auto) 25.1 Monocytes (%) (Auto) 8.6 Eosinophils (%) (Auto) 2.3 Basophils (%) (Auto) 1.0 Neutrophils # (Auto) 4.6 Lymphocytes # (Auto) 1.8 Monocytes # (Auto) 0.6 Eosinophils # (Auto) 0.2 Basophils # (Auto) 0.1 CBC Comment DIFF FINAL Differential Comment Prothrombin Time 11.4 Prothromb Time International Ratio 1.0 Activated Partial Thromboplast Time 23.7 Blood Urea Nitrogen 12 Creatinine 1.11 Random Glucose 240 Total Protein 7.1 Albumin 3.4 Calcium Level 8.4 Magnesium Level 1.6 Alkaline Phosphatase 69 Aspartate Amino Transf (AST/SGOT) 19 Alanine Aminotransferase (ALT/SGPT) 19 Total Bilirubin 0.5 Sodium Level 135 Potassium Level 4.1 Chloride Level 100 Carbon Dioxide Level 24.3 Anion Gap 11 Estimat Glomerular Filtration Rate 65 Total Creatine Kinase 96 86 82 Troponin I LESS THAN 0.02 LESS THAN 0.02 LESS THAN 0.02 Result Diagram: 03/06/17 1420 03/06/17 1420 Imaging Last 48 hours Impressions Chest X-Ray 03/06/17 1605 Signed Impressions: Service Date/Time: Monday, March 06, 2017 16:34 - CONCLUSION: Mild compensated cardiomegaly Tyrell Anderson MD FACR Course EKGs have sinus rhythm with anterolateral ST changes. Caprini VTE Risk Assessment Caprini VTE Risk Assessment: Mod/High Risk (score >= 2) Caprini Risk Assessment Model Point Value = 1 Point Value = 2 Point Value = 3 Point Value = 5 Age 41-60 Minor surgery BMI > 25 kg/m2 Swollen legs Varicose veins or History of unexplained or recurrent spontaneous Oral contraceptives or hormone replacement Sepsis (< 1 month) Serious lung disease, including pneumonia (< 1 month) Abnormal pulmonary function Acute myocardial infarction Congestive heart failure (< 1 month) History of inflammatory bowel disease Medical patient at bed rest Age 61-74 Arthroscopic surgery Major open surgery (> 45 min) Laparoscopic surgery (> 45 min) Malignancy Confined to bed (> 72 hours) Immobilizing plaster cast Central venous access Age >= 75 History of VTE Family history of VTE Factor V Leiden Prothrombin [id number] Lupus anticoagulant Anticardiolipin antibodies Elevated serum homocysteine Heparin-induced thrombocytopenia Other congenital or acquired thrombophilia Stroke (< 1 month) Elective arthroplasty Hip, pelvis, or leg fracture Acute spinal cord injury (< 1 month) Prophylaxis Regimen Total Risk Factor Score Risk Level Prophylaxis Regimen 0-1 Low Early ambulation 2 Moderate Order ONE of the following: *Sequential Compression Device (SCD) *Heparin 5000 units SQ BID 3-4 Higher Order ONE of the following medications: *Heparin 5000 units SQ TID *Enoxaparin/Lovenox 40 mg SQ daily (WT < 150 kg, CrCl > 30 mL/min) *Enoxaparin/Lovenox 30 mg SQ daily (WT < 150 kg, CrCl > 10-29 mL/min) *Enoxaparin/Lovenox 30 mg SQ BID (WT < 150 kg, CrCl > 30 mL/min) AND/OR *Sequential Compression Device (SCD) 5 or more Highest Order ONE of the following medications: *Heparin 5000 units SQ TID (Preferred with Epidurals) *Enoxaparin/Lovenox 40 mg SQ daily (WT < 150 kg, CrCl > 30 mL/min) *Enoxaparin/Lovenox 30 mg SQ daily (WT < 150 kg, CrCl > 10-29 mL/min) *Enoxaparin/Lovenox 30 mg SQ BID (WT < 150 kg, CrCl > 30 mL/min) AND *Sequential Compression Device (SCD) Assessment and Plan Assessment and Plan * Chest pain: Patient has had serial cardiac enzymes and EKGs for ruling out purposes. He will be seen by Dr. Robbins of cardiology in the chest pain center. I discussed the patient with his sandal parts assembler Dr. Karl Santana. Patient will have a Lexiscan. I will notify Dr. Santana if stress test is nonischemic otherwise he will be discharged home with instructions to follow-up with his urologist and primary care physician. She continues home medications. * CAD: We will assess with stress testing. He needs to follow-up with his sandal parts assembler. * Hypertension: Continue her medication. * Hyperlipidemia: Continue current medication. * Diabetes: We'll cover with sliding scale insulin coverage while the chest and center resume medication at discharge. * History of paroxysmal SVT: Patient needs to keep his appointment with Dr. Schaefer. Patient is stable this time. He is agreeable to this plan. Raza Manning Mar 07, 2017 12:00
--- NOTE | 2017-03-07 12:43 | HHI.DCPOC ---
Discharge Care Plan Diagnosis: (1) Chest pain (2) CAD (coronary artery disease) (3) Hx of CABG (4) H/O heart artery stent (5) Hypertension (6) Dyslipidemia (7) Diabetes mellitus Goals to Promote Your Health * To prevent worsening of your condition and complications * To maintain your health at the optimal level Directions to Meet Your Goals Take your medications as prescribed Follow your dietary instruction Follow activity as directed Keep your appointments as scheduled Take your immunizations and boosters as scheduled If your symptoms worsen call your PCP, if no PCP go to Urgent Care Center or Emergency Room Smoking is Dangerous to Your Health. Avoid second hand smoke Call the 24-hour hour crisis hotline for domestic abuse at Raza Manning Mar 07, 2017 12:43
--- NOTE | 2017-03-07 16:10 | EKG ---
Date Performed: 03/07/2017 Time Performed: 01:03:23 PTAGE: 71 years EKG: SINUS BRADYCARDIA NONSPECIFIC T-WAVE ABNORMALITY BORDERLINE ECG PREVIOUS TRACING : 03/06/2017 23.12 Since previous tracing, no significant change noted DOCTOR: Rommel Robbins Interpretating Date/Time 03/07/2017 16:09:31
--- NOTE | 2017-03-07 16:12 | EKG ---
Date Performed: 03/06/2017 Time Performed: 23:12:53 PTAGE: 71 years EKG: SINUS BRADYCARDIA NONSPECIFIC T-WAVE ABNORMALITY BORDERLINE ECG PREVIOUS TRACING : 03/06/2017 16.04 Compared to previous tracingST wave changes improved, DOCTOR: Rommel Robbins Interpretating Date/Time 03/07/2017 16:12:22
--- NOTE | 2017-03-07 16:18 | EKG ---
Date Performed: 03/06/2017 Time Performed: 16:04:30 PTAGE: 71 years EKG: Sinus rhythm ST DEVIATION AND MODERATE T-WAVE ABNORMALITY, CONSIDER ANTEROLATERAL ISCHEMIA ABNORMAL ECG PREVIOUS TRACING : 02/13/2017 13.06 Since previous tracing, no significant change noted DOCTOR: Rommel Robbins Interpretating Date/Time 03/07/2017 16:17:39
[2017-03-07] MEDS ORDERED: DONEPEZIL HCL 5 MG TAB PO SCH (21:00)
[2017-03-07] MEDS ORDERED: ATORVASTATIN 80 MG TAB PO SCH (21:00)
--- NOTE | 2017-03-08 11:14 | TR ---
Date Performed: 03/07/2017 Time Performed: 10:17:28 DOCTOR: Rommel Robbins DRUG LIST: CLINICAL HISTORY: REASON FOR TEST: Angina REASON FOR ENDING: OBSERVATION: CONCLUSION: Lexiscan stress test was performed under standard four minute protocol. Radionuclid e was injected one minute prior to ending the test. No electrocardiographic abormalities were present to suggest ischemia. Nuclear imaging and interpretation are pending. COMMENTS:
== END 2017-03-07 16:03 | disposition home or self-care (01) ==
LOC: NEPE 15:33 → NEDA 18:33 → NEPGCP 23:21
PROVIDERS: ADMIT Internal Medicine Cardiovascular Disease; ATTEND Internal Medicine Cardiovascular Disease
DX: R07.89 Other chest pain (principal); I25.10 Atherosclerotic heart disease of native coronary artery without angina pectoris; I10 Essential (primary) hypertension; E78.5 Hyperlipidemia, unspecified; E11.9 Type 2 diabetes mellitus without complications; R94.31 Abnormal electrocardiogram [ECG] [EKG]; K21.9 Gastro-esophageal reflux disease without esophagitis; Z95.1 Presence of aortocoronary bypass graft; Z79.4 Long term (current) use of insulin; Z86.73 Personal history of transient ischemic attack (TIA), and cerebral infarction without residual deficits
CPT/HCPCS: 71010; 78452; 80053; 82550; 82948; 83735; 84484; 85025; 85610; 85730; 93005; 93017; 96372; 96374; 96375; 96376; 99285; A9502; G0378; J1815; J2270; J2405; J2785; J7040

== ENCOUNTER 2017-03-13 12:48 | Day surgery (SDC) | payer OTHER ==
[~2017-03-13] VITALS: Ht 185.4 cm; Wt 89.0 kg
[2017-03-13 13:00] VITALS: BP 106/75; PULSE 62; RESP 17; TEMP 97.7; O2SAT 99
[2017-03-13] MEDS ORDERED: METOPROLOL TARTRATE 25 MG TAB PO PRN (13:45)
[2017-03-13] MEDS ORDERED: LORazepam 1 MG TAB SL SCH (13:45)
[2017-03-13] MEDS ORDERED: LACTATED RINGER'S 1000 ML IV PRN (13:45)
[2017-03-13] MEDS ORDERED: SODIUM CHLORID 0.9% 500 ML INJ 500 ML IV SCH (13:45)
[2017-03-13] MEDS ORDERED: INSULIN HUMAN REGULAR 1,000 UNITS/10 ML VIAL SQ PRN (13:45)
[2017-03-13] MEDS ORDERED: POVIDONE IODINE 5% (ANTISEPSIS KIT) 4 APPLICATIONS EACH NARE PRN (13:45)
[2017-03-13] MEDS ORDERED: SODIUM CHLORID 0.9% 500 ML IV PRN (13:45)
[2017-03-13] MEDS ORDERED: CHLORHEXIDINE GLUCONATE 2 % 1 PACK (2 CLOTHS) TOPICAL PRN (13:45)
[2017-03-13 14:16] LABS: AUTOMATED NEUTROPHIL # 3.8 TH/MM3 (1.8-7.7); BASOPHIL # 0.1 TH/MM3 (0-0.2); BASOPHIL % 0.9 % (0.0-2.0); EOSINOPHIL # 0.1 TH/MM3 (0-0.4); EOSINOPHIL % 2.2 % (0.0-4.0); HEMATOCRIT 37.2 % (39.0-51.0); HEMO FLAGS DIFF FINAL; LYMPH % 30.9 % (9.0-44.0); MEAN CORPUSCULAR HEMOGLOBIN 22.7 PG (27.0-34.0); MEAN CORPUSCULAR HGB CONC 31.6 % (32.0-36.0); MONO % 8.3 % (0.0-8.0); NEUT % 57.7 % (16.0-70.0); PLATELET COUNT 222 TH/MM3 (150-450); RED BLOOD COUNT 5.16 MIL/MM3 (4.50-5.90); RED CELL DISTRIBUTION WIDTH 18.2 % (11.6-17.2); WHITE BLOOD COUNT 6.6 TH/MM3 (4.0-11.0)
[2017-03-13 14:27] LABS: APTT (PATIENT) 25.9 SEC (24.3-30.1); INTERNATIONAL NORMALIZED RATIO 1.1 RATIO; PROTHROMBIN TIME - PATIENT 11.9 SEC (9.8-11.6)
[2017-03-13] MEDS ORDERED: NITR0.4S SL (14:42)
[2017-03-13] MEDS ORDERED: CYMB60CA PO (14:42)
[2017-03-13] MEDS ORDERED: GLIP5TAB8 PO (14:42)
[2017-03-13] MEDS ORDERED: OMEP20TA PO (14:42)
[2017-03-13] MEDS ORDERED: SITA1TAB2 PO (14:42)
[2017-03-13 14:44] LABS: BICARBONATE 24.8 MEQ/L (21.0-32.0)
[2017-03-13] MEDS ORDERED: HEPARIN-NS/PF INJ 1,000 ML ONE (15:48)
[2017-03-13] MEDS ORDERED: MIDAZOLAM HCL 2 MG/2 ML VIAL ONE (15:58)
[2017-03-13] MEDS ORDERED: ISOPROTERENOL HCL 1 MG/5 ML AMP ONE (16:35)
--- NOTE | 2017-03-13 17:24 | CATHPROC ---
[facility] HIS Report Study Information Study Number Admission Scheduled Start Study Start [id number] Mar 13 2017 12:48PM 03/13/2017 Mar 13 2017 1:39PM [place] Service Electrophysiology Study Admit Source Facility Department Other [facility] - Scrap Drop Crane Operator Physician and Clinical Staff Initial [facility] Senior Software Quality Engineer Mao Gonzalez,RT(R) Other Anesthesia, TIRE ROOM SUPERVISOR Recorder Cassi Whitten,IGOR Scrub Loren Escobedo,RT(R) TECH2 Equipment Time Rest Room Matron Description Size Mfg Part Number Used/Scraped [id number] 16:07 [employer] INDUSTRIES PACK, CCL CUSTOM * Used *[id number] 16:07 [employer] PACER YODER, LIMB * 2530 *[id number] Used [id number] 16:07 [employer] MEDICAL BLANKET,WARM AIR CCL * Used *[id number] 15:40 [employer] CATHE[employer], JSN, QUAD FR 5 Used *[id number] 15:40 [employer] CAT[employer], JSN, QUAD FR 5 Used *[id number] 15:40 [employer] CAT[employer], JSN, QUAD FR 5 Used *[id number] 15:40 [employer] CAT[employer], JSN, QUAD FR 5 Used *[id number] 16:07 [employer] MED[employer] ELECTRODE KIT, NEERAJ X SURFACE * [id number] Used [id number] 15:40 [employer] SHEATH, EPS, FR5 FAST CATH FR 5 Used *[id number] 15:40 [employer] SHE[employer], EPS, FR5 FAST CATH FR 5 Used *[id number] 15:40 [employer] SHE[employer], EPS, FR5 FAST CATH FR 5 Used *[id number] 15:40 [employer] SHE[employer], EPS, FR6 FAST CATH FR 6 Used *[id number] 15:40 [employer] SHEATH, EPS, FR8 FAST CATH FR 8 Used *[id number] [facility] PAD, ELECTROSURGICAL 16:07 * [id number] *[id number] Used SURGICAL GROUNDING (BLUE) History: Allergies Allergy Reaction No Known Allergies History: Risk Factors Hypertension Dyslipidemia Previous MS Yes Yes Yes Prior PCI Prior CABG Yes Yes Cerebrovascular Chronic Lung Diabetes Diabetes Therapy Disease Disease Yes Yes Yes Oral Labs Hgb (g/dl) Hct (%) RBC (MIL/MM3) WBC (l/cumm) Platelets (thousands) 11.60-17.00 35.00-51.00 4.00-5.90 4.00-11.00 150.00-450.00 11.0 37 5.1 6.6 222 Glucose (mg/dl) BUN (mg/dl) Creatinine (mg/dl) BUN:Creatinine (1:x) 74.00-106.00 7.00-18.00 0.50-1.30 10.00-20.00 154 17 0.8 21.3 Na (meq/l) K (meq/l) 136.00-145.00 3.50-5.10 137 4 INR (PTT:PT) 0.90-1.10 1.1 Medication Medication Total Dose (Bolus/Oral) Medication Total Dosage/Unit 1% XYLOCAINE 40 mL Medications (Bolus/Oral) Medication Time Given Dosage/Unit Administered By Reason 1% XYLOCAINE 03/13/2017 4:20:21 PM 20 mL Cortes Schaefer 20 mL 1% XYLOCAINE given in lab by Cortes Schaefer in Left Groin via Subcutaneous. 1% XYLOCAINE 03/13/2017 4:23:05 PM 20 mL Cortes Schaefer 20 mL 1% XYLOCAINE given in lab by Cortes Schaefer in Right Groin via Subcutaneous. Ordered by Frederick Schaefer. Medication (Drip) Medication Time Given Dosage/Unit Concentration/Unit Diluent (ml) Solution ISUPREL 03/13/2017 4:39:20 PM 5 mcg/min 1 mg 250 NaCl .9 5 mcg/min ISUPREL given in lab by Anesthesia, TIRE ROOM SUPERVISOR via Peripheral IV. Pump/Drip Flow = 75 ml/hr using NaCl .9 with a concentration of 1 mg in 250 ml. Ordered by Cortes Schaefer. Reason: As per physicians verbal order. Initial Case Assessment Cardiovascular HR Rhythm NIBP Chest Pain 53 sr 119/69 0 Edema Present Skin color Skin None Normal Warm Dry Circulatory - Right Pulses Dorsalis Pedis 2 Scale (0,1,2,3,4,d) Circulatory - Left Pulses Dorsalis Pedis 2 Scale (0,1,2,3,4,d) Circulatory - Lower Extremities Color Lower Right Color Lower Left Normal Normal Neurological State Oriented to time-place- Alert Moves all extremities person Comment: alturas Respiration - General Respiration Rate SpO2 (%) (B/min) 20 96 Final Case Assessment Cardiovascular HR Rhythm NIBP Chest Pain 88 sr 120/76 0 Edema Present Skin color Skin None Normal Warm Dry Circulatory - Right Pulses Dorsalis Pedis 2 Scale (0,1,2,3,4,d) Circulatory - Left Pulses Dorsalis Pedis 2 Scale (0,1,2,3,4,d) Circulatory - Lower Extremities Color Lower Right Color Lower Left Normal Normal Neurological State Oriented to time-place- Alert Moves all extremities person Respiration - General Respiration Rate SpO2 (%) (B/min) 18 99 Chronological Log Time Study Chronological Log 15:29:15 Patient arrived via Bed. 15:29:16 Patient Name, D.O.B, / Armband Verified By R.N. 15:29:16 Consent signed by the physician and the patient and verified by the Scrap Drop Crane Operator staff. 15:29:17 Pre-op and post- op instructions given; patient acknowledges understanding of instructions. 15:29:18 Verbal Stimulation=2 Physical Stimulation=2 Airway=2 Respiration=2 TOTAL=8. (0=absent, 1=li mited, 2=present) 15:30:03 Patient has been NPO for More than 6Hrs. 15:30:04 Skin Breakdown- right FA scab 15:30:05 Patient Warmer Placed on the Table. 15:30:06 Disposable Defibrillator Pads Placed On Patient. 15:30:08 Sanjay Prominences Protected 15:30:13 History and physical on the chart. 15:30:18 A # 20 IV was noted in the Forearm (left). Grade = 0 0.9ns kvo 15:30:19 A # 20 IV was noted in the Forearm (right). Grade = 0 0.9ns kvo Anesthesia at bedside. Assumes care of patient. Ramon 15:35:18 15:40:22 Table restraints applied according to hospital policy Assessment: Initial Case, HR=53 BPM, Rhythm=sr, KSYT=973/69 mmhg, Chest Pain=0, Edema=None, Col or=Normal, Skin = Warm, Dry Right Pulses: Cory Ped=2 Left Pulses: Cory Ped=2 15:50:10 Lower Right Extremities: Color=Normal Lower Left Extremities: Color=Normal Neurological: State=Alert, Ox3, TANNER, Comment=alturas Respiration: Resp=20 B/min, SpO2=96 % 15:50:12 Bilateral groins prepped with 2% chlorhexidine, and with a 3 min. waiting time. 16:00:00 MD paged 16:02:55 [facility] rep present 16:07:00 Reference ECG taken 16:16:40 MD arrived. Time Out. Correct patient, procedure, procedure equipment, site and side verified with physicia n present. Time 16:19:01 concurred by MD, individual staff and TIRE ROOM SUPERVISOR. Time Out #2 - Consents verified, patient in correct position, all results are labled and displa yed, safety precautions 16:19:27 taken, antibiotics administered. Time out concurred by MD, individual staff and TIRE ROOM SUPERVISOR in procedu re 16:19:58 Case Start 16:20:21 20 mL 1% XYLOCAINE given in lab by Cortes Schaefer in Left Groin via Subcutaneous. 16:21:29 Vascular access was obtained in the Fem Vein (left). 16:21:34 Vascular access was obtained in the Fem Vein (left). 16:21:48 Vascular access was obtained in the Fem Vein (left). 16:22:56 A SHEATH, EPS, FR5 FAST CATH FR 5 was advanced into the Fem Vein (left) using the Modified Seldinger technique. 16:23:03 A SHEATH, EPS, FR5 FAST CATH FR 5 was advanced into the Fem Vein (left) using the Modified Seldinger technique. 16:23:04 A SHEATH, EPS, FR5 FAST CATH FR 5 was advanced into the Fem Vein (left) using the Modified Seldinger technique. 16:23:05 20 mL 1% XYLOCAINE given in lab by Cortes Schaefer in Right Groin via Subcutaneous. Ordered b y Cortes Schaefer. 16:23:08 Vascular access was obtained in the Fem Vein (right). 16:23:10 A SHEATH, EPS, FR6 FAST CATH FR 6 was advanced into the Fem Vein (right) using the Modified Seldinger technique. 16:23:32 Vascular access was obtained in the Fem Vein (right). 16:23:51 A SHEATH, EPS, FR8 FAST CATH FR 8 was advanced into the Fem Vein (right) using the Modified Seldinger technique. A CATHETER, JSN, QUAD FR 5 was advanced vis Fem Vein (left) and placed in the CS. Placement was visually 16:27:00 confirmed under fluoroscopy. A CATHETER, JSN, QUAD FR 5 was advanced vis Fem Vein (left) and placed in the HIS. Placement wa s visually 16:27:42 confirmed under fluoroscopy. A CATHETER, JSN, QUAD FR 5 was advanced vis Fem Vein (left) and placed in the RVA. Placement wa s visually 16:28:49 confirmed under fluoroscopy. A CATHETER, JSN, QUAD FR 5 was advanced vis Fem Vein (left) and placed in the HRA. Placement wa s visually 16:28:56 confirmed under fluoroscopy. 16:31:00 EPS in progress 5 mcg/min ISUPREL given in lab by Anesthesia, TIRE ROOM SUPERVISOR via Peripheral IV. Pump/Drip Flow = 75 ml/hr using NaCl .9 with 16:39:20 a concentration of 1 mg in 250 ml. Ordered by Cortes Schaefer. Reason: As per physicians verbal o rder. 16:47:26 Isuprel off 16:55:25 EPS complete. 16:57:00 Catheters removed without difficulty. 16:58:45 Sheaths removed; pressure applied to access sites for 20 min by MM, left side and HH, right side. 17:00:00 Case End Assessment: Final Case, HR=88 BPM, Rhythm=sr, ZXMB=439/76 mmhg, Chest Pain=0, Edema=None, Branch r=Normal, Skin = Warm, Dry Right Pulses: Cory Ped=2 Left Pulses: Cory Ped=2 17:05:36 Lower Right Extremities: Color=Normal Lower Left Extremities: Color=Normal Neurological: State=Alert, Ox3, TANNER Respiration: Resp=18 B/min, SpO2=99 % 17:15:45 CICU called by DB. Spoke to church secretary 17:15:50 Bedside Report will be given. 17:21:13 Sterile dressing applied to sites. Sites wnl. 17:21:24 No case complications noted. 17:21:41 Cine recording checked. 17:22:24 Defibrillator and ground pads removed. Skin intact. 17:26:[address] [facility] End Study - Contrast Media Used In Study Contrast Total Opened (mL) Total Used (mL) Total Wasted (mL) Unspecified 0 0 0 End Study - Maximum Contrast Load Max Contrast Load (mL) 556.3 End Study - Radiation Exposure Fluoro Time (minutes) 1.8 End Study - Patient Disposition Complications Transferred To Interventional Outcome No Telemetry Bed successful
[2017-03-13 18:00] VITALS: BP 109/65; PULSE 56; RESP 20; TEMP 97.8; O2SAT 100
[2017-03-13] MEDS ORDERED: LIDOCAINE HCL 1% 50 ML VIAL INFIL PRN (18:15)
[2017-03-13] MEDS ORDERED: LORazepam 2 MG/ML VIAL IV PUSH PRN (18:15)
[2017-03-13] MEDS ORDERED: METOCLOPRAMIDE HCL 10 MG/2 ML VIAL IV PUSH PRN (18:15)
[2017-03-13] MEDS ORDERED: ATROPINE SULFATE 1 MG/ML VIAL IV PUSH PRN (18:15)
[2017-03-13] MEDS ORDERED: oxyCODONE/ACETAMINOPHEN 5 MG/325 MG TAB PO PRN ×2 (18:15)
[2017-03-13] MEDS ORDERED: ONDANSETRON HCL 4 MG/2 ML VIAL IV PUSH PRN (18:15)
[2017-03-13] MEDS ORDERED: MORPHINE SULFATE 4 MG/ML INJ IV ONE (18:15)
[2017-03-13] MEDS ORDERED: BACITRACIN OINT 0.9 GM PKT TOP ONE (18:15)
[2017-03-13] MEDS ORDERED: SODIUM CHLOR 0.9% 250 ML INJ 250 ML IV PRN (18:15)
[2017-03-13 19:00] VITALS: BP 107/66; PULSE 54; PULSE 57; RESP 20; TEMP 98.3; O2SAT 98
[2017-03-13 20:00] VITALS: PULSE 59
--- NOTE | 2017-03-13 20:23 | MA ---
cc: JOSE GONZALEZ M.D. DATE 03/13/17 PROCEDURE PERFORMED Electrophysiology study, CS cannulation, repeat electrophysiology study and Isuprel infusion. HISTORY Mr. Walker is a 71-year-old gentleman with recurrent episode of tachyarrhythmia, coronary artery disease, now complex tachyarrhythmia observed on event recorder who will undergo electrophysiology study and possible ablation. The risks, the nature and the benefit of the procedure are clearly stated to him. The risks include pneumothorax, cardiac perforation, stroke, need for open heart surgery and even . He understands and agreed to proceed. PROCEDURE After written informed consent was obtained, the patient was brought to the EP lab where he was prepped and draped in the usual sterile fashion. Conscious sedation was initiated and maintained throughout the procedure by anesthesiologist. Once sedation verified, the right and left inguinal area was anesthetized with 2% Xylocaine. Using modified Seldinger technique, the right femoral vein was cannulated on two occasions, two guidewire were advanced over the wire. A 6 and an 8-Maltese Hemaquet were advanced. Then the left femoral vein was cannulated on three occasions, three guidewire were advanced over the wire, three 5-Maltese Hemaquet were advance. Then under fluoroscopic guidance through the 5 inch 6 Maltese Hemaquet, four 5-Maltese Lilli curved quadripolar electrophysiology catheter advanced into position on the His, upper right atrium, coronary sinus and right ventricular apex. Basic interval was measured. There were within normal limits. At this point atrial pacing protocol was performed. Atrial pacing protocol consisted of incremental atrial pacing as well as program stimulation with 110 cycle length and up to one extrastimuli delivered. No tachyarrhythmia was induced. Pacing from the coronary sinus showed no pre-excitation. Then ventricular pacing protocol was performed. There was no VA conduction at baseline. Isuprel infusion was initiated. Atrial pacing protocol was repeated again, no tachyarrhythmia was induced. Ventricular pacing protocol was repeated again there was VA conduction. Then Isuprel infusion was discontinued. Atrial pacing protocol was repeated again, no tachyarrhythmia was induced. At that point procedure was completed. No tachyarrhythmia induced. The patient going to be transferred to recovery room. No incident report. The patient tolerated the procedure. Blood loss minimal. All catheter and Hemaquet were removed. 1. Electrocardiogram: At baseline the patient was in sinus, postprocedure electrocardiogram was unchanged. 2. Basic interval: Base cycle length was around 820 milliseconds, AH at 70 and HV at 40 milliseconds. 3. Atrial pacing protocol: Wenckebach of the node at baseline was 360 milliseconds. Isuprel it was around 280 milliseconds. No tachyarrhythmia was induced. 4. Ventricular pacing protocol: There was no VA conduction. There was VA at baseline. No tachyarrhythmia was induced. CONCLUSION Negative electrophysiology study for supraventricular tachyarrhythmia. COMMENT/RECOMMENDATIONS The patient going to be transferred to recovery room. Will be observed. When stable can be discharged home. Jose Gonzalez MD HS/EO /6:16 PM /8:06 PM
[2017-03-13] MEDS: METOPROLOL TARTRATE 25 MG TAB PO SCH (20:29)
[2017-03-13 21:00] VITALS: PULSE 55
[2017-03-13] MEDS ORDERED: DONEPEZIL HCL 5 MG TAB PO SCH (21:00)
[2017-03-13] MEDS ORDERED: ATORVASTATIN 80 MG TAB PO SCH (21:00)
[2017-03-13 23:00] VITALS: BP 112/67; PULSE 71; RESP 20; TEMP 98; O2SAT 98
--- NOTE | 2017-03-13 23:43 | EKG ---
Date Performed: 03/13/2017 Time Performed: 14:14:36 PTAGE: 71 years EKG: Possible ectopic atrial bradycardia Prolonged QT interval Septal and lateral ST-T changes a re nonspecific Borderline ECG PREVIOUS TRACING : 03/07/2017 01.03 Compared to prior tracing no significant change DOCTOR: Jamie Hernandez Interpretating Date/Time 03/13/2017 23:42:32
[2017-03-14] VITALS (20 sets, daily range): BP systolic 99–111; BP diastolic 63–76; PULSE 50–78; RESP 19–20; TEMP 97.5–97.8; O2SAT 93–98
[2017-03-14] MEDS: glipiZIDE 5 MG TAB PO SCH ×2 (05:55→15:39)
[2017-03-14] MEDS ORDERED: CLOPIDOGREL 75 MG TAB PO SCH (09:00)
[2017-03-14] MEDS ORDERED: DULoxetine HCl DR 60 MG CAP PO SCH (09:00)
[2017-03-14] MEDS ORDERED: PANTOPRAZOLE SOD 20 MG DELAYED RELEASE TAB PO SCH (09:00)
[2017-03-14] MEDS: GABAPENTIN 300 MG CAP PO SCH ×3 (09:16→17:53)
[2017-03-14] MEDS: METOPROLOL TARTRATE 25 MG TAB PO SCH (09:16)
[2017-03-14] MEDS: metFORMIN HCL 500 MG TAB PO SCH ×2 (09:16→17:53)
== END 2017-03-14 21:00 | disposition home or self-care (01) ==
LOC: HCAT 12:48 → HDIC 12:49 → HCIS 17:37 → HCAT 03-14 21:00
PROVIDERS: ATTEND Internal Medicine Interventional Cardiology
DX: I47.1 Supraventricular tachycardia (principal); I25.810 Atherosclerosis of coronary artery bypass graft(s) without angina pectoris; I10 Essential (primary) hypertension; E11.9 Type 2 diabetes mellitus without complications; Z79.84 Long term (current) use of oral hypoglycemic drugs; Z79.01 Long term (current) use of anticoagulants
CPT/HCPCS: 00537; 80048; 85025; 85610; 85730; 86850; 86900; 86901; 93005; 93620; 93623; C1730; C1732; J1644; J2250; J2270; J3010

== ENCOUNTER 2017-09-09 05:34 | Inpatient (IN) | payer OTHER, MEDICARE ==
[~2017-09-09] VITALS: Ht 185.4 cm; Wt 95.3 kg
[~2017-09-09 05:34] MED LIST changes: -ALCO1PAD; -ASPI81CH25 PO; -ATOR1TAB18 PO; +ATOR80TA45 PO; -BLOOD GLUCOSE M1 KIT; -BLOOD GLUCOSE T1 TES; -DULO1CAP3 PO; -GLIP5 PO; +GLIP5TAB8 PO; +HYDR-2376 PO; -INSU1MIS; -LISI-519 PO; -METO-426 PO; +METO25TA3 PO; +NITR0.4S SL; +NOVOLOGP2 SQ; -NOVOLOGSS SQ; -OMEP20TA PO; +OMEP20TA93 PO; +SITA1TAB2 PO; -WALKER/ADULT/FO1 MIS
[2017-09-09] MEDS ORDERED: POVIDONE IODINE 7.5% SCRUB 118 ML BOTTLE TOPICAL SCH (06:00)
[2017-09-09] MEDS ORDERED: ceFAZolin 2 GM PREMIX 50 ML IV SCH ×2 (06:00→14:00)
[2017-09-09] MEDS ORDERED: CHLORHEXIDINE GLUCONATE 2 % 1 PACK (2 CLOTHS) TOPICAL PRN (06:00)
[2017-09-09] MEDS ORDERED: SODIUM CHLORIDE 0.9% IV SCH (06:00)
[2017-09-09] MEDS ORDERED: SODIUM CHLORID 0.9% 500 ML IV PRN (06:00)
[2017-09-09] MEDS ORDERED: CHLORHEXIDINE GLUCONATE 4% SOLN 120 ML BTL TOPICAL SCH (06:00)
[2017-09-09] MEDS ORDERED: TRANEXAMIC PERI-ARTICULAR 3,000 MG/NS 100 ML P-ARTICULR SCH ×2 (06:00)
[2017-09-09] MEDS ORDERED: POVIDONE IODINE 5% (ANTISEPSIS KIT) 4 APPLICATIONS EACH NARE PRN (06:00)
[2017-09-09] MEDS ORDERED: TRANEXAMIC ACID IV SCH (06:00)
[2017-09-09] MEDS ORDERED: ROPIVACAINE PERI-ARTICULAR INJECTION. P-ARTICULR SCH ×5 (06:00)
[2017-09-09] MEDS ORDERED: METOPROLOL TARTRATE 25 MG TAB PO PRN (06:00)
[2017-09-09] MEDS ORDERED: LACTATED RINGER'S 1000 ML IV PRN (06:00)
[2017-09-09] MEDS ORDERED: DEXAMETHASONE SOD PHOS 20 MG/5 ML VIAL IV PRN (06:00)
[2017-09-09] MEDS ORDERED: VANCOMYCIN 1000 MG/NS 250 ML (for <70 kg) IV SCH ×2 (06:00)
[2017-09-09] MEDS ORDERED: ACETAMINOPHEN 1000 MG/100 ML 100 ML IV ONE (06:52)
[2017-09-09] MEDS ORDERED: Post-op Orders (for Pharmacy) XX ONE (07:00)
[2017-09-09] MEDS ORDERED: BISACODYL 10 MG SUPP RECTAL PRN (07:00)
[2017-09-09] MEDS ORDERED: diphenhydrAMINE HCL 50 MG/ML VIAL IV PUSH PRN (07:00)
[2017-09-09] MEDS ORDERED: MORPHINE SULFATE 4 MG/ML INJ IV PUSH PRN (07:00)
[2017-09-09] MEDS ORDERED: ONDANSETRON HCL 4 MG/2 ML VIAL IVP PRN (07:00)
[2017-09-09] MEDS ORDERED: ZOLPIDEM TARTRATE 5 MG TAB PO PRN (07:00)
[2017-09-09] MEDS ORDERED: HYDR-3288 PO (07:03)
[2017-09-09] MEDS ORDERED: PLAV75TA29 PO (07:03)
[2017-09-09] MEDS ORDERED: GENTAMICIN SULFATE 80 MG/2 ML VIAL ONE (07:04)
[2017-09-09 07:26] VITALS: PULSE 57
[2017-09-09] MEDS ORDERED: FAMOTIDINE 20 MG/2 ML VIAL ONE (07:29)
[2017-09-09] MEDS ORDERED: MIDAZOLAM HCL 2 MG/2 ML VIAL ONE (07:29)
[2017-09-09] MEDS ORDERED: MIDAZOLAM HCL 2 MG/2 ML VIAL IV ONE (08:30)
[2017-09-09] MEDS ORDERED: FAMOTIDINE 20 MG/2 ML VIAL IV ONE (08:30)
[2017-09-09] MEDS: GABAPENTIN 300 MG CAP PO SCH ×3 (09:00→17:50)
[2017-09-09] MEDS: METOPROLOL TARTRATE 25 MG TAB PO SCH ×2 (09:00→21:28)
[2017-09-09] MEDS: PANTOPRAZOLE SOD 20 MG DELAYED RELEASE TAB PO SCH (09:00)
[2017-09-09] MEDS: metFORMIN HCL 500 MG TAB PO SCH ×2 (09:00→17:33)
[2017-09-09] MEDS ORDERED: DEXTROSE 50% IN WATER 50 ML VIAL(D50) IV PUSH PRN (09:30)
[2017-09-09] MEDS ORDERED: GLUCAGON 1 MG/ML VIAL OTHER PRN (09:30)
[2017-09-09] MEDS ORDERED: DO NOT ADM ANY ANTICOAGULANT DRUGS PRN (10:17)
--- NOTE | 2017-09-09 10:32 | MP ---
cc: Matti Haile MD DATE OF OPERATION: 09/09/2017 PREOPERATIVE DIAGNOSIS: Right knee osteoarthritis. POSTOPERATIVE DIAGNOSIS: Right knee osteoarthritis. PROCEDURE PERFORMED: Right total knee arthroplasty. SURGEON: Matti Haile MD X RAY SERVICE TECHNICIAN: MULUGETA Hugo. ANESTHESIA: General with femoral nerve adductor canal block. ESTIMATED BLOOD LOSS: 100 mL. TOURNIQUET TIME 28 minutes at 250 mmHg. COMPLICATIONS: None. IMPLANTS USED: DePuy Attune size 9 posterior stabilized femoral component, size 8 rotating platform tibial baseplate, size 6 mm polyethylene tibial insert, size 41 patella. JUSTIFICATION: The patient is a 72-year-old male with a history of severe end-stage osteoarthrosis involving the right knee. He has severe disabling pain with standing, walking and ambulation, weightbearing activities and severe pain with rest. It does interfere with activities of daily living. He has failed greater than 3 months of nonoperative conservative treatment to include medication therapy, injections, ambulatory assistive aids, home exercise program, and activity modification. The patient is not overweight. X-rays of the right knee reveal severe endstage osteoarthritis with joint space narrowing, subchondral sclerosis, subchondral cyst, osteophyte formation with associated deformity and subluxation. The patient was counseled risks, benefits and alternatives to a total knee arthroplasty. The risks were discussed, which include, but not limited to anesthesia, bleeding, infection, damage to nerves and blood vessels, pain, stiffness, failure of components, blood clots, pulmonary embolism and even . The patient's pain is severe. He favored the benefits over risks and he wished to proceed of the surgery. PROCEDURE IN DETAIL: Written consent was obtained. The patient was identified by name, taken to the operating room and placed supine on the operating table. General anesthesia was administered as well as 2 grams of IV Ancef and 1 gram of IV vancomycin. A well-padded tourniquet was placed on the right thigh. The right lower extremity prepped and draped using isopropyl alcohol, Hibiclens solution and ChloraPrep solution. After timeout was performed, an Esmarch bandage was used to exsanguinate the right lower extremity. Tourniquet inflated to 250 mmHg. An longitudinal incision was made over the anterior aspect of the right knee. A medial parapatellar arthrotomy was performed. The patella was everted. A patellar resection guide was used to resect 9 mm of patella, the size 41 mm patellar guide was placed, 3 drill holes were placed and a 41 mm patellar trial fit well. Attention turned to the femur. Instrument guide was placed and distal femoral guide was set to remove 10 mm of distal femur, 5 degrees off the anatomic valgus axis alignment, an oscillating saw was used to perform the distal femoral cut. Attention turned to the tibia and extramedullary tibial guide was set to remove 6 mm of the lowest portion medial tibial plateau. Tibial guide was pinned in place and the tibia was performed. A 5 mm spacer block showed full extension. Attention was turned back to the femur. The AP sizing guide measured size 9. The anterior reference 3-degree external rotation guide was used to pin a size [address] The anterior, posterior and chamfer cuts were performed. A size 9 PCL box sealing machine operator was pinned in place and the PCL was boxed out with an oscillating saw. The medial and lateral meniscus remnants were removed, as well as bone or soft tissue debris from the posterior portion of the knee. A size 8 tibial baseplate was pinned in place and tibia was drilled with a punch. Trial components were evaluated, the final components cemented in place with the correct components. The leg could achieve full extension 0 degrees, flexion to 140. No evidence of tibial liftoff. Varus valgus balance were appropriate and symmetric and the patella was noted to track centrally. Tourniquet was deflated. Bovie cautery was used for hemostasis. The arthrotomy incision was closed with #1 Vicryl sutures, subcutaneous layer with 2-0 Vicryl suture, skin was closed with Dermabond. Sterile dressing applied. The patient tolerated the procedure well. There were no intraoperative complications noted. Rupesh Andrade, physician loan officer assistant certified was present during the entire procedure to patient positioning and the procedure itself. The medical necessity of physician loan officer assistant was indicated in this case due to the complexity of the procedure to assist with appropriate manipulation of the leg and retraction of the muscle, tendon, bone and neurovascular structure. He assisted with preparation of bone and with implantation of the prosthetic replacement. MD AFUA Song/GWEN , 09:58 AM , 10:30 AM
[2017-09-09] MEDS: SODIUM CHLOR 0.9% 1000 ML INJ 1,000 ML IV SCH ×2 (10:56→17:50)
--- NOTE | 2017-09-09 11:12 | RADRPT ---
EXAM DATE/TIME: 09/09/2017 10:32 [facility] COMPARISON: No previous studies available for comparison. INDICATIONS : Post op right knee surgery MEDICAL HISTORY : None. SURGICAL HISTORY : None. ENCOUNTER: Initial ACUITY: 1 day PAIN SCORE: 0/10 LOCATION: Right knee FINDINGS: AP and lateral views of the knee following arthroplasty reveals a prosthesis in anatomic alignment. F racture is not appreciated. CONCLUSION: Status post total knee arthroplasty. Tyrell Anderson MD FACR Board Certified Radiologist. This report was verified electronically.
[2017-09-09] MEDS ORDERED: *morphine SULFATE 10 MG/ML PERIprocedure ONLY ONE (11:47)
[2017-09-09] MEDS ORDERED: ONDANSETRON HCL 4 MG/2 ML VIAL IV ONE (12:00)
[2017-09-09] MEDS ORDERED: LIDOCAINE HCL 1% PF 5 ML SYRINGE OTHER ONE (12:00)
[2017-09-09] MEDS ORDERED: ROCURONIUM INJ 50 MG/5 ML SYRINGE IV PUSH ONE (12:00)
[2017-09-09] MEDS: INSULIN ASPART SUPPLEMENTAL SCALE SQ SCH ×3 (12:00→21:28)
[2017-09-09] MEDS ORDERED: ePHEDrine/NS 25 MG/5 ML SYRINGE IV ONE (12:00)
[2017-09-09] MEDS ORDERED: GLYCOPYRROLATE 1 MG/5 ML SYRINGE IV PUSH ONE (12:00)
[2017-09-09] MEDS ORDERED: PHENYLEPH/NS 1000 MCG/10 ML SYR IV ONE (12:00)
[2017-09-09] MEDS ORDERED: PROPOFOL 200 MG/20 ML AMP IV ONE (12:00)
[2017-09-09] MEDS ORDERED: *morphine SULFATE 4 MG/ML PERIprocedure ONLY ONE (12:55)
--- NOTE | 2017-09-09 13:14 | HHI.DCPOC ---
Discharge Care Plan Diagnosis: (1) Primary localized osteoarthrosis, lower leg Your Health Problems Are: Difficulty with ADL Goals to Promote Your Health * To prevent worsening of your condition and complications * To maintain your health at the optimal level Directions to Meet Your Goals Take your medications as prescribed Follow your dietary instruction Follow activity as directed Keep your appointments as scheduled Take your immunizations and boosters as scheduled If your symptoms worsen call your PCP, if no PCP go to Urgent Care Center or Emergency Room Smoking is Dangerous to Your Health. Avoid second hand smoke Call the 24-hour hour crisis hotline for domestic abuse at Matti Andrade Sep 09, 2017 13:14
[2017-09-09] MEDS ORDERED: SUGAMMADEX SODIUM 200 MG/2 ML VIAL IV PUSH ONE (13:32)
[2017-09-09] MEDS: ACETAMINOPHEN/HYDROcodone 325 MG/7.5 MG TAB PO PRN ×2 (13:59→17:33)
[2017-09-09] MEDS ORDERED: DEXTROSE 5% IV SCH ×2 (14:00)
[2017-09-09] MEDS ORDERED: WATER IV SCH ×2 (14:00)
[2017-09-09] MEDS ORDERED: CEFAZOLIN IV SCH ×2 (14:00)
--- NOTE | 2017-09-09 15:06 | PD.CONS ---
[facility] By [facility] Matti Haile Reason for Consult Medical management Primary Care Physician Leo Raines MD Diagnoses: History of Present Illness This is a 72-year-old male with a history of right knee pain secondary to osteoarthritis. Underwent elective arthroplasty by Dr. Haile who requested consultation to evaluate and manage multiple medical conditions. Patient has history of coronary artery disease status post bypass cleared by his prescriptionist. He denies chest pain maintained on Plavix and metoprolol. He also has hypertension also controlled on metoprolol. He has chronic left shoulder pain from rotator cuff injury status post surgery and back pain status post multiple surgeries managed by gabapentin and nerve stimulator. He also has diabetes on metformin, Januvia, glipizide and Levemir. He does not remember the last time he had A1c but his sugars are running in the 200s, today he was in the mid 200s. Anesthesia records reviewed. Received thousand mL crystalloid and EBL of 100 mL. He reports of mild right knee discomfort he received nerve block. All other systems reviewed negative Review of Systems Except as stated in HPI: all other systems reviewed are Neg Past Family Social History Allergies: Coded Allergies: No Known Allergies (Verified Allergy, Unknown, 09/09/17) Past Medical History Also has MCI, anemia TIA and carotid artery stenosis Past Surgical History As previously mentioned, appendectomy Reported Medications Plavix (Clopidogrel Bisulfate) 75 Mg Tab 75 Mg PO DAILY [place] (Hydrocodone-Acetaminophen) 7.5-325 mg Tab 1-2 Tab PO Q6H PRN Reported Hydrocodone-Acetaminophen 7.5-300 Mg Tab 0.5 Tab PO Q3HR PRN Levemir Inj (Insulin Detemir) 1,000 unit/ 10 ML Vial 12 Units SQ HS Do not mix with any other Insulin. Novolog Inj (Insulin Aspart) 1,000 Unit/10 Ml Vial 0 SQ DIRECTED PRN Sliding Scale as directed. Metoprolol Tartrate 25 Mg Tab 25 Mg PO BID Omeprazole 20 Mg Tab 20 Mg PO DAILY Nitrostat SL (Nitroglycerin) 0.4 Mg Subl 0.4 Mg SL DIRECTED PRN 1 tablet under the tongue as needed for chest pain. Repeat every 5 minutes for a total of 3 DOSES or call 911 if NO relief. Januvia (Sitagliptin Phosphate) 100 Mg Tab 100 Mg PO DAILY Glipizide 5 Mg Tab 7.5 Mg PO BIDAC Take 30 minutes before a meal Atorvastatin (Atorvastatin Calcium) 80 Mg Tab 80 Mg PO HS Metformin (Metformin HCl) 1,000 Mg Tab 1,000 Mg PO BIDPC With meals Donepezil 10 Mg Tab 10 Mg PO HS Gabapentin 300 Mg Cap 300 Mg PO TID Plavix (Clopidogrel Bisulfate) 75 Mg Tab 75 Mg PO DAILY Family History Heart failure, diabetes, coronary artery disease and hypertension Social History Does not smoke or drink lives with his Physical Exam Vital Signs Vital Signs Date Time Temp Pulse Resp B/P (MAP) Pulse Ox O2 Delivery O2 Flow Rate FiO2 09/09/17 12:58 98.2 68 19 120/66 (84) 96 Nasal Cannula 3 09/09/17 12:00 71 17 122/65 (84) 97 Nasal Cannula 3 09/09/17 11:00 70 18 117/66 (83) 96 Nasal Cannula 3 09/09/17 10:45 72 14 123/70 (87) 95 Nasal Cannula 3 09/09/17 10:30 71 15 131/75 (93) 93 Nasal Cannula 3 09/09/17 10:20 98.6 76 20 128/78 (95) 100 Simple Mask 8 09/09/17 07:26 97 Nasal Cannula 2 09/09/17 07:26 57 09/09/17 06:00 98.2 57 22 124/69 (87) 96 Physical Exam GENERAL: This is a well-nourished, well-developed patient, in no apparent distress. SKIN: No rashes, ecchymoses or lesions. Cool and dry. HEAD: Atraumatic. Normocephalic. No temporal or scalp tenderness. EYES: Pupils equal round and reactive. Extraocular motions intact. No scleral icterus. No injection or drainage. ENT: Nose without bleeding, purulent drainage or septal hematoma. Throat without erythema, tonsillar hypertrophy or exudate. Uvula midline. Airway patent. NECK: Trachea midline. No JVD or lymphadenopathy. Supple, nontender, no meningeal signs. CARDIOVASCULAR: Regular rate and rhythm without murmurs, gallops, or rubs. RESPIRATORY: Clear to auscultation. Breath sounds equal bilaterally. No wheezes , rales, or rhonchi. GASTROINTESTINAL: Abdomen soft, non-tender, nondistended. No guarding. MUSCULOSKELETAL: Extremities without clubbing, cyanosis, or edema. Right lower extremity with dry dressing. Bilateral SCDs noted NEUROLOGICAL: Awake and alert. Cranial nerves II through XII intact. Motor and sensory grossly within normal limits. Five out of 5 muscle strength in all muscle groups. Normal speech. Laboratory Outside records reviewed glucose 181 sodium 142 potassium 4.5 AST and ALT within normal limits INR 1.1 CBC is remarkable for hemoglobin of 10.5 platelet count 254,000 urinalysis unremarkable no evidence of infection, EKG with ectopic bradycardia and prolonged QT chest x-ray with out acute cardiopulmonary disease Assessment and Plan Assessment and Plan This is a 72-year-old male with a history of right knee pain secondary to osteoarthritis s/p elective arthroplasty by Dr. Haile. Stable continue postoperative care with wound care, physical therapy, pain management with Lortab and morphine sulfate and DVT prophylaxis with Lovenox Coronary artery disease status post bypass cleared by his prescriptionist. He denies chest pain maintained on Plavix and metoprolol. Plavix on hold secondary to surgery he has been started on aspirin by his attending will clarify. He also has hypertension also controlled on metoprolol. Continue to monitor Chronic left shoulder pain from rotator cuff injury status post surgery and back pain status post multiple surgeries managed by gabapentin and nerve stimulator. Patient will be on Lortab counseled regarding narcotic he also has diabetes on metformin, Januvia, glipizide and Levemir. Monitor fingersticks with sliding scale coverage h Also has MCI, anemia TIA and carotid artery stenosis. Stable continue home medications as appropriate. Discussed Condition With Patient and Manfred Crow MD Sep 09, 2017 15:06
[2017-09-09] MEDS: glipiZIDE 5 MG TAB PO SCH (15:17)
[2017-09-09 16:00] VITALS: BP 104/62; PULSE 70; RESP 18; TEMP 96.9; O2SAT 93
[2017-09-09 20:35] VITALS: BP 93/53; PULSE 64; RESP 18; TEMP 97.5; O2SAT 93
[2017-09-09] MEDS: ATORVASTATIN 80 MG TAB PO SCH (21:28)
[2017-09-09] MEDS: INSULIN DETEMIR 100 UNITS/ML VIAL SQ SCH (21:28)
[2017-09-09] MEDS: DONEPEZIL HCL 5 MG TAB PO SCH (21:28)
[2017-09-09] MEDS: ENOXAPARIN SODIUM 30 MG/0.3 ML SYRINGE SQ SCH (21:29)
[2017-09-09 23:50] VITALS: BP 90/59; PULSE 63; RESP 18; TEMP 97.6; O2SAT 96
[2017-09-10] VITALS (7 sets, daily range): BP systolic 90–107; BP diastolic 53–68; PULSE 58–76; RESP 17–19; TEMP 96.5–98; O2SAT 92–94
[2017-09-10] MEDS: SODIUM CHLOR 0.9% 1000 ML INJ 1,000 ML IV SCH ×3 (02:59→21:40)
[2017-09-10] MEDS: ACETAMINOPHEN/HYDROcodone 325 MG/7.5 MG TAB PO PRN ×4 (04:57→17:13)
[2017-09-10 06:08] LABS: HEMATOCRIT 28.3 % (39.0-51.0); HEMOGLOBIN 8.7 GM/DL (13.0-17.0); MEAN CELL VOLUME 67.9 FL (80.0-100.0); MEAN CORPUSCULAR HEMOGLOBIN 20.9 PG (27.0-34.0); MEAN CORPUSCULAR HGB CONC 30.8 % (32.0-36.0); MEAN PLATELET VOLUME 9.4 FL (7.0-11.0); PLATELET COUNT 206 TH/MM3 (150-450); RED BLOOD COUNT 4.16 MIL/MM3 (4.50-5.90); RED CELL DISTRIBUTION WIDTH 19.2 % (11.6-17.2); WHITE BLOOD COUNT 8.5 TH/MM3 (4.0-11.0)
[2017-09-10 06:21] LABS: BICARBONATE 21.1 MEQ/L (21.0-32.0); CALCIUM 8.1 MG/DL (8.5-10.1); CREATININE 1.25 MG/DL (0.60-1.30)
[2017-09-10] MEDS: INSULIN ASPART SUPPLEMENTAL SCALE SQ SCH ×4 (08:00→20:32)
[2017-09-10] MEDS: metFORMIN HCL 500 MG TAB PO SCH ×2 (08:07→17:34)
[2017-09-10] MEDS: glipiZIDE 5 MG TAB PO SCH ×2 (08:07→17:13)
[2017-09-10] MEDS: METOPROLOL TARTRATE 25 MG TAB PO SCH ×3 (08:07→20:31)
[2017-09-10] MEDS: GABAPENTIN 300 MG CAP PO SCH ×3 (08:07→17:13)
[2017-09-10] MEDS: PANTOPRAZOLE SOD 20 MG DELAYED RELEASE TAB PO SCH (08:08)
[2017-09-10] MEDS: ASPIRIN 81 MG CHEW TAB CHEW SCH (08:08)
--- NOTE | 2017-09-10 08:24 | PD.ORT.PN ---
Subjective Post Op Day #: 1 Subjective Remarks pain controlled Objective Vitals Vital Signs Date Time Temp Pulse Resp B/P (MAP) Pulse Ox O2 Delivery O2 Flow Rate FiO2 09/10/17 07:52 96.9 58 19 103/64 (77) 94 09/10/17 04:05 96.5 69 17 97/53 (68) 94 09/09/17 23:50 97.6 63 18 90/59 (69) 96 09/09/17 20:35 97.5 64 18 93/53 (66) 93 09/09/17 16:00 96.9 70 18 104/62 (76) 93 09/09/17 12:58 98.2 68 19 120/66 (84) 96 Nasal Cannula 3 09/09/17 12:00 71 17 122/65 (84) 97 Nasal Cannula 3 09/09/17 11:00 70 18 117/66 (83) 96 Nasal Cannula 3 09/09/17 10:45 72 14 123/70 (87) 95 Nasal Cannula 3 09/09/17 10:30 71 15 131/75 (93) 93 Nasal Cannula 3 09/09/17 10:20 98.6 76 20 128/78 (95) 100 Simple Mask 8 I/O 09/09/17 09/09/17 09/09/17 09/10/17 09/10/17 09/10/17 07:00 15:00 23:00 07:00 15:00 23:00 Intake Total 1200 ml 1211 ml 640 ml Output Total 100 ml 150 ml 375 ml Balance 1100 ml -150 ml 1211 ml 265 ml Intake Oral 200 ml 640 ml IV Total 1000 ml 1211 ml Output Urine Total 150 ml 375 ml Estimated Blood Loss 100 ml # Voids 1 # Bowel Movements 0 Result Diagram: 09/10/17 0500 09/10/17 0500 Objective Remarks in bed, nad dressing c/d/i neg homans nvi Assessment & Plan Ortho Post Op Day #: 1 Problem List: Assessment and Plan s/p R TKA wbat ok to maintain dressing unless saturated asa and lovenox, will resume plavix upon d/c to snf d/c planning to snf rx in chart f/up dr. miller 2 weeks Matti Andrade Sep 10, 2017 08:24
[2017-09-10] MEDS ORDERED: WALKER WHEELS/F1 MIS (08:29)
[2017-09-10] MEDS ORDERED: PNEUMOCOCCAL POLYVALENT INJ 25 MCG/0.5 ML SYR IM ONE (09:00)
--- NOTE | 2017-09-10 10:38 | HHI.PR ---
Subjective Remarks Follow-up left knee surgery. Patient doing okay out of bed to chair. Patient hyperglycemic yesterday discussed with nursing Objective Vitals Vital Signs Date Time Temp Pulse Resp B/P (MAP) Pulse Ox O2 Delivery O2 Flow Rate FiO2 09/10/17 07:52 96.9 58 19 103/64 (77) 94 09/10/17 04:05 96.5 69 17 97/53 (68) 94 09/09/17 23:50 97.6 63 18 90/59 (69) 96 09/09/17 20:35 97.5 64 18 93/53 (66) 93 09/09/17 16:00 96.9 70 18 104/62 (76) 93 09/09/17 12:58 98.2 68 19 120/66 (84) 96 Nasal Cannula 3 09/09/17 12:00 71 17 122/65 (84) 97 Nasal Cannula 3 09/09/17 11:00 70 18 117/66 (83) 96 Nasal Cannula 3 09/09/17 10:45 72 14 123/70 (87) 95 Nasal Cannula 3 I/O 09/09/17 09/09/17 09/09/17 09/10/17 09/10/17 09/10/17 07:00 15:00 23:00 07:00 15:00 23:00 Intake Total 1200 ml 1211 ml 640 ml Output Total 100 ml 150 ml 375 ml Balance 1100 ml -150 ml 1211 ml 265 ml Intake Oral 200 ml 640 ml IV Total 1000 ml 1211 ml Output Urine Total 150 ml 375 ml Estimated Blood Loss 100 ml # Voids 1 # Bowel Movements 0 Result Diagram: 09/10/17 0500 09/10/17 0500 Imaging Last Impressions Knee X-Ray 09/09/17 0659 Signed Impressions: Service Date/Time: Saturday, September 09, 2017 10:32 - CONCLUSION: Status post total knee arthroplasty. Tyrell Anderson MD Objective Remarks GENERAL: This is a well-nourished, well-developed patient, in no apparent distress. SKIN: No rashes, ecchymoses or lesions. Cool and dry. CARDIOVASCULAR: Regular rate and rhythm without murmurs, gallops, or rubs. RESPIRATORY: Clear to auscultation. Breath sounds equal bilaterally. No wheezes , rales, or rhonchi. GASTROINTESTINAL: Abdomen soft, non-tender, nondistended. No guarding. MUSCULOSKELETAL: Extremities without clubbing, cyanosis, or edema. Right lower extremity with dry dressing. Bilateral SCDs noted NEUROLOGICAL: Awake and alert. Cranial nerves II through XII intact. Motor and sensory grossly within normal limits. Five out of 5 muscle strength in all muscle groups. Normal speech. A/P Assessment and Plan This is a 72-year-old male with a history of right knee pain secondary to osteoarthritis s/p elective arthroplasty by Dr. Haile. Stable continue postoperative care with wound care, physical therapy, pain management with Lortab and morphine sulfate and DVT prophylaxis with Lovenox Coronary artery disease status post bypass cleared by his summer counselor. He denies chest pain maintained on Plavix and metoprolol. Plavix on hold secondary to surgery and will be restarted after discharge meanwhile continue aspirin Hypertension also controlled on metoprolol. Continue to monitor Chronic left shoulder pain from rotator cuff injury status post surgery and back pain status post multiple surgeries managed by gabapentin and nerve stimulator. Patient will be on Lortab counseled regarding narcotic Diabetes on metformin, Januvia, glipizide and Levemir. Uncontrolled continue to monitor fingersticks with sliding scale coverage. Check A1c Also has MCI, anemia TIA and carotid artery stenosis. I will be is worse secondary to acute blood loss. Hemodynamically stable will monitor Manfred Crow MD Sep 10, 2017 10:38
[2017-09-10 16:52] LABS: HEMOGLOBIN A1C 8.2 % (4.3-6.0)
[2017-09-10] MEDS: DOCUSATE SODIUM 100 MG CAP PO SCH (20:31)
[2017-09-10] MEDS: DONEPEZIL HCL 5 MG TAB PO SCH (20:31)
[2017-09-10] MEDS: ATORVASTATIN 80 MG TAB PO SCH (20:31)
[2017-09-10] MEDS: MULTIVITAMINS/MINERALS THERAPEUTIC TAB PO SCH (20:31)
[2017-09-10] MEDS: INSULIN DETEMIR 100 UNITS/ML VIAL SQ SCH (20:32)
[2017-09-10] MEDS: ENOXAPARIN SODIUM 30 MG/0.3 ML SYRINGE SQ SCH (21:40)
[2017-09-11] VITALS (9 sets, daily range): BP systolic 102–125; BP diastolic 58–68; PULSE 62–75; RESP 18–19; TEMP 98.1–98.8; O2SAT 94–98
[2017-09-11] MEDS: ACETAMINOPHEN/HYDROcodone 325 MG/7.5 MG TAB PO PRN ×5 (02:30→20:54)
[2017-09-11] MEDS: INSULIN ASPART SUPPLEMENTAL SCALE SQ SCH ×4 (07:54→20:47)
[2017-09-11] MEDS: metFORMIN HCL 500 MG TAB PO SCH ×2 (07:56→16:26)
[2017-09-11] MEDS: ASPIRIN 81 MG CHEW TAB CHEW SCH (07:56)
[2017-09-11] MEDS: METOPROLOL TARTRATE 25 MG TAB PO SCH ×2 (07:57→20:51)
[2017-09-11] MEDS: glipiZIDE 5 MG TAB PO SCH ×2 (07:57→16:26)
[2017-09-11] MEDS: PANTOPRAZOLE SOD 20 MG DELAYED RELEASE TAB PO SCH (07:57)
[2017-09-11] MEDS: GABAPENTIN 300 MG CAP PO SCH ×3 (07:57→16:27)
[2017-09-11] MEDS: DOCUSATE SODIUM 100 MG CAP PO SCH ×2 (07:57→20:45)
[2017-09-11] MEDS: MULTIVITAMINS/MINERALS THERAPEUTIC TAB PO SCH ×2 (07:58→20:46)
[2017-09-11] MEDS: SODIUM CHLOR 0.9% 1000 ML INJ 1,000 ML IV SCH (07:58)
--- NOTE | 2017-09-11 08:02 | PD.ORT.PN ---
Subjective Post Op Day #: 1 Subjective Remarks pain controlled. back sore from sitting in bed. Objective Vitals Vital Signs Date Time Temp Pulse Resp B/P (MAP) Pulse Ox O2 Delivery O2 Flow Rate FiO2 09/11/17 07:34 98.2 74 19 103/62 (76) 97 09/11/17 06:39 105/60 (75) 09/11/17 03:50 98.1 75 18 116/65 (82) 97 09/11/17 02:29 107/59 (75) 09/10/17 23:25 97.7 75 17 90/53 (65) 92 09/10/17 22:10 Nasal Cannula 2.00 09/10/17 19:45 98.0 76 18 91/55 (67) 92 09/10/17 17:59 94 21 09/10/17 15:10 97.3 70 18 107/68 (81) 94 09/10/17 11:34 96.7 62 19 100/53 (69) 94 I/O 09/10/17 09/10/17 09/10/17 09/11/17 09/11/17 09/11/17 07:00 15:00 23:00 07:00 15:00 23:00 Intake Total 1211 ml 1490 ml 640 ml Output Total 375 ml 475 ml Balance 1211 ml 1115 ml -475 ml 640 ml Intake Oral 1490 ml 640 ml IV Total 1211 ml Output Urine Total 375 ml 475 ml # Voids 2 # Bowel Movements 0 1 Result Diagram: 09/10/17 0500 09/10/17 0500 Objective Remarks in bed, nad dressing c/d/i swelling of the knee neg homans nvi Assessment & Plan Ortho Post Op Day #: 1 Problem List: Assessment and Plan s/p R TKA wbat ok to maintain dressing unless saturated asa and lovenox, will resume plavix upon d/c to snf ice d/c planning to snf rx in chart f/up dr. miller 2 weeks Matti Andrade Sep 11, 2017 08:02
--- NOTE | 2017-09-11 10:05 | HHI.PR ---
Subjective Remarks Follow-up orthopedic surgery. States he is doing okay complains of dyspnea on exertion history of COPD currently on 2 L. No cough and active wheezing discussed with nurse Objective Vitals Vital Signs Date Time Temp Pulse Resp B/P (MAP) Pulse Ox O2 Delivery O2 Flow Rate FiO2 09/11/17 08:02 17 09/11/17 07:34 98.2 74 19 103/62 (76) 97 09/11/17 06:39 105/60 (75) 09/11/17 03:50 98.1 75 18 116/65 (82) 97 09/11/17 02:29 107/59 (75) 09/10/17 23:25 97.7 75 17 90/53 (65) 92 09/10/17 22:10 Nasal Cannula 2.00 09/10/17 19:45 98.0 76 18 91/55 (67) 92 09/10/17 17:59 94 21 09/10/17 15:10 97.3 70 18 107/68 (81) 94 09/10/17 11:34 96.7 62 19 100/53 (69) 94 I/O 09/10/17 09/10/17 09/10/17 09/11/17 09/11/17 09/11/17 07:00 15:00 23:00 07:00 15:00 23:00 Intake Total 1211 ml 1490 ml 640 ml Output Total 375 ml 475 ml Balance 1211 ml 1115 ml -475 ml 640 ml Intake Oral 1490 ml 640 ml IV Total 1211 ml Output Urine Total 375 ml 475 ml # Voids 2 # Bowel Movements 0 1 Result Diagram: 09/10/17 0500 09/10/17 0500 Imaging Last Impressions Knee X-Ray 09/09/17 0659 Signed Impressions: Service Date/Time: Saturday, September 09, 2017 10:32 - CONCLUSION: Status post total knee arthroplasty. Tyrell Anderson MD Objective Remarks GENERAL: This is a well-nourished, well-developed patient, in no apparent distress. SKIN: No rashes, ecchymoses or lesions. Cool and dry. CARDIOVASCULAR: Regular rate and rhythm without murmurs, gallops, or rubs. RESPIRATORY: Clear to auscultation. Breath sounds equal bilaterally. No wheezes , rales, or rhonchi. GASTROINTESTINAL: Abdomen soft, non-tender, nondistended. No guarding. MUSCULOSKELETAL: Extremities without clubbing, cyanosis, or edema. Right lower extremity with dry dressing. Bilateral SCDs noted NEUROLOGICAL: Awake and alert. Cranial nerves II through XII intact. Motor and sensory grossly within normal limits. Five out of 5 muscle strength in all muscle groups. Normal speech. A/P Assessment and Plan This is a 72-year-old male with a history of right knee pain secondary to osteoarthritis s/p elective arthroplasty by Dr. Haile. Stable continue postoperative care with wound care, physical therapy, pain management with Lortab and morphine sulfate and DVT prophylaxis with Lovenox Coronary artery disease status post bypass cleared by his logging superintendent. He denies chest pain maintained on Plavix and metoprolol. Plavix on hold secondary to surgery and will be restarted after discharge meanwhile continue aspirin Hypertension also controlled on metoprolol. Continue to monitor Chronic left shoulder pain from rotator cuff injury status post surgery and back pain status post multiple surgeries managed by gabapentin and nerve stimulator. Patient will be on Lortab counseled regarding narcotic Diabetes on metformin, Januvia, glipizide and Levemir. Uncontrolled continue to monitor fingersticks with sliding scale coverage. A1c 8.2. Hyperglycemia is improved COPD. Start nebulization and wean oxygen Also has MCI, anemia TIA and carotid artery stenosis. Blood counts stable from yesterday. Will monitor Manfred Crow MD Sep 11, 2017 10:05
[2017-09-11] MEDS ORDERED: RESP: ALBUTEROL 2.5 MG/3 ML NEB (PRN) INH (10:15)
[2017-09-11 13:22] LABS: HEMATOCRIT 28.4 % (39.0-51.0); HEMOGLOBIN 8.7 GM/DL (13.0-17.0); MEAN CORPUSCULAR HEMOGLOBIN 20.9 PG (27.0-34.0); MEAN CORPUSCULAR HGB CONC 30.7 % (32.0-36.0); MEAN PLATELET VOLUME 9.1 FL (7.0-11.0); PLATELET COUNT 193 TH/MM3 (150-450); RED BLOOD COUNT 4.18 MIL/MM3 (4.50-5.90); RED CELL DISTRIBUTION WIDTH 19.4 % (11.6-17.2); WHITE BLOOD COUNT 7.6 TH/MM3 (4.0-11.0)
[2017-09-11 13:41] LABS: BICARBONATE 20.3 MEQ/L (21.0-32.0); CALCIUM 8.6 MG/DL (8.5-10.1); CREATININE 0.94 MG/DL (0.60-1.30)
[2017-09-11] MEDS ORDERED: Albuterol Neb INH (15:05)
[2017-09-11] MEDS ORDERED: Albuterol-Ipratropium Neb INH (15:05)
[2017-09-11] MEDS: RESP: ALBUTEROL 2.5 MG/IPRATROPIUM 0.5 MG NEB (SCH) INH ×2 (16:44→22:08)
[2017-09-11] MEDS: ENOXAPARIN SODIUM 30 MG/0.3 ML SYRINGE SQ SCH (20:46)
[2017-09-11] MEDS: DONEPEZIL HCL 5 MG TAB PO SCH (20:46)
[2017-09-11] MEDS: INSULIN DETEMIR 100 UNITS/ML VIAL SQ SCH (20:47)
[2017-09-11] MEDS: ATORVASTATIN 80 MG TAB PO SCH (20:47)
[2017-09-12] VITALS (7 sets, daily range): BP systolic 117–140; BP diastolic 57–82; PULSE 60–71; RESP 17–20; TEMP 97.8–98.9; O2SAT 83–98
[2017-09-12] MEDS: ACETAMINOPHEN/HYDROcodone 325 MG/7.5 MG TAB PO PRN ×3 (01:05→18:13)
[2017-09-12] MEDS: RESP: ALBUTEROL 2.5 MG/IPRATROPIUM 0.5 MG NEB (SCH) INH ×3 (04:06→16:00)
[2017-09-12 06:52] LABS: HEMATOCRIT 25.4 % (39.0-51.0); HEMOGLOBIN 7.9 GM/DL (13.0-17.0); MEAN CELL VOLUME 67.2 FL (80.0-100.0); MEAN CORPUSCULAR HEMOGLOBIN 20.9 PG (27.0-34.0); MEAN CORPUSCULAR HGB CONC 31.1 % (32.0-36.0); MEAN PLATELET VOLUME 9.9 FL (7.0-11.0); PLATELET COUNT 172 TH/MM3 (150-450); RED BLOOD COUNT 3.78 MIL/MM3 (4.50-5.90); RED CELL DISTRIBUTION WIDTH 19.5 % (11.6-17.2); WHITE BLOOD COUNT 6.2 TH/MM3 (4.0-11.0)
[2017-09-12 07:13] LABS: BICARBONATE 24.6 MEQ/L (21.0-32.0); CALCIUM 8.2 MG/DL (8.5-10.1); CREATININE 0.66 MG/DL (0.60-1.30)
[2017-09-12] MEDS ORDERED: SODIUM CHLOR 0.9% 250 ML INJ 250 ML IV ONE (07:30)
--- NOTE | 2017-09-12 07:52 | PD.ORT.PN ---
Subjective Post Op Day #: 3 Subjective Remarks pain seems to be controlled. patient states at home he takes norco every 2 hours and here he receives it every 4. Objective Vitals Vital Signs Date Time Temp Pulse Resp B/P (MAP) Pulse Ox O2 Delivery O2 Flow Rate FiO2 09/12/17 04:35 97.8 60 18 117/57 (77) 83 09/11/17 22:08 98 Nasal Cannula 2.00 09/11/17 20:59 72 125/68 (87) 09/11/17 17:28 17 09/11/17 16:47 95 Nasal Cannula 3.00 09/11/17 15:35 98.7 62 19 102/58 (73) 94 09/11/17 11:43 Nasal Cannula 2.00 09/11/17 11:31 98.8 64 19 105/64 (78) 97 09/11/17 08:02 17 I/O 09/11/17 09/11/17 09/11/17 09/12/17 09/12/17 09/12/17 07:00 15:00 23:00 07:00 15:00 23:00 Intake Total 1540 ml Output Total 300 ml Balance 1240 ml Intake Oral 1540 ml Output Urine Total 300 ml # Voids 2 # Bowel Movements 1 Result Diagram: 09/12/17 0527 09/12/17 05 Objective Remarks in bed, nad dressing c/d/i swelling of the knee - stable neg homans nvi Assessment & Plan Ortho Post Op Day #: 3 Problem List: Assessment and Plan s/p R TKA wbat ok to maintain dressing unless saturated asa and lovenox, will resume plavix upon d/c to snf ice anemia - medical has ordered PRBC d/c planning to snf - cleared after transfusion if medically stable rx in chart f/up dr. miller 2 weeks Matti Andrade Sep 12, 2017 07:52
[2017-09-12] MEDS: metFORMIN HCL 500 MG TAB PO SCH ×2 (08:27→18:12)
[2017-09-12] MEDS: INSULIN ASPART SUPPLEMENTAL SCALE SQ SCH ×3 (08:27→18:12)
[2017-09-12] MEDS: MULTIVITAMINS/MINERALS THERAPEUTIC TAB PO SCH (08:28)
[2017-09-12] MEDS: ASPIRIN 81 MG CHEW TAB CHEW SCH (08:28)
[2017-09-12] MEDS: DOCUSATE SODIUM 100 MG CAP PO SCH (08:28)
[2017-09-12] MEDS: PANTOPRAZOLE SOD 20 MG DELAYED RELEASE TAB PO SCH (08:28)
[2017-09-12] MEDS: GABAPENTIN 300 MG CAP PO SCH ×3 (08:28→18:00)
[2017-09-12] MEDS: glipiZIDE 5 MG TAB PO SCH ×2 (08:28→16:00)
[2017-09-12] MEDS: METOPROLOL TARTRATE 25 MG TAB PO SCH (08:29)
--- NOTE | 2017-09-12 10:06 | HHI.PR ---
Subjective Remarks Follow-up COPD and anemia. States the medication is helping still on oxygen. Improving shortness of breath. Today he also complains of fatigue with poor appetite. Discussed with nursing Objective Vitals Vital Signs Date Time Temp Pulse Resp B/P (MAP) Pulse Ox O2 Delivery O2 Flow Rate FiO2 09/12/17 04:35 97.8 60 18 117/57 (77) 83 09/11/17 22:08 98 Nasal Cannula 2.00 09/11/17 20:59 72 125/68 (87) 09/11/17 17:28 17 09/11/17 16:47 95 Nasal Cannula 3.00 09/11/17 15:35 98.7 62 19 102/58 (73) 94 09/11/17 11:43 Nasal Cannula 2.00 09/11/17 11:31 98.8 64 19 105/64 (78) 97 I/O 09/11/17 09/11/17 09/11/17 09/12/17 09/12/17 09/12/17 07:00 15:00 23:00 07:00 15:00 23:00 Intake Total 1540 ml Output Total 300 ml Balance 1240 ml Intake Oral 1540 ml Output Urine Total 300 ml # Voids 2 # Bowel Movements 1 Result Diagram: 09/12/1727 09/12/1727 Imaging Last Impressions Knee X-Ray 09/09/17 0659 Signed Impressions: Service Date/Time: Saturday, September 09, 2017 10:32 - CONCLUSION: Status post total knee arthroplasty. Tyrell Anderson MD Objective Remarks GENERAL: This is a well-nourished, well-developed patient, in no apparent distress. SKIN: No rashes, ecchymoses or lesions. Cool and dry. CARDIOVASCULAR: Regular rate and rhythm without murmurs, gallops, or rubs. RESPIRATORY: Decreased breath sounds equal bilaterally. No wheezes, rales, or rhonchi. GASTROINTESTINAL: Abdomen soft, non-tender, nondistended. No guarding. MUSCULOSKELETAL: Extremities without clubbing, cyanosis, or edema. Right lower extremity with dry dressing. Bilateral SCDs noted NEUROLOGICAL: Awake and alert. Cranial nerves II through XII intact. Motor and sensory grossly within normal limits. Five out of 5 muscle strength in all muscle groups. Normal speech. A/P Assessment and Plan This is a 72-year-old male with a history of right knee pain secondary to osteoarthritis s/p elective arthroplasty by Dr. Haile. 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 He denies chest pain maintained on Plavix and metoprolol. Plavix on hold secondary to surgery and will be restarted after discharge meanwhile continue aspirin Hypertension also controlled on metoprolol. Continue to monitor Chronic left shoulder pain from rotator cuff injury status post surgery and back pain status post multiple surgeries managed by gabapentin and nerve stimulator. Patient will be on Lortab counseled regarding narcotic Diabetes on metformin, Januvia, glipizide and Levemir. Uncontrolled continue to monitor fingersticks with sliding scale coverage. A1c 8.2. Hyperglycemia is improved COPD. Improving continue nebulization and wean oxygen. Obtain chest x-ray Also has MCI, anemia TIA and carotid artery stenosis. Symptomatic anemia transfuse keep hb at least 8. Hemoccult stools. Will monitor Discharge Planning Dc after CXR resulted and PRBC given repeat blood cts in am Manfred Crow MD Sep 12, 2017 10:06
--- NOTE | 2017-09-12 14:22 | RADRPT ---
EXAM DATE/TIME: 09/12/2017 14:00 [facility] COMPARISON: CHEST SINGLE AP, March 06, 2017, 16:34. INDICATIONS : Cough. CHF. MEDICAL HISTORY : Myocardial infarction. Cerebrovascular disease. Hypertension. Dementia. SURGICAL HISTORY : CABG. Appendectomy. ENCOUNTER: Initial ACUITY: 2 days PAIN SCORE: 0/10 LOCATION: Bilateral chest FINDINGS: Median sternotomy wires are noted status post cardiac surgery. The heart is enlarged. Bibasilar atele ctasis and/or infiltrates are noted. Small right pleural effusion is noted. Spinal stimulator leads a re noted within the thoracic spine. Severe degenerative changes are again noted involving the left sh oulder joint. CONCLUSION: Bibasilar atelectasis and/or infiltrates. Small right pleural effusion. Mild cardiomegaly. Severe deg enerative changes involving left shoulder joint. Marquez Orona MD on September 12, 2017 at 14:18 Board Certified Radiologist. This report was verified electronically.
--- NOTE | 2017-09-13 10:00 | MD ---
cc: Matti Haile MD DATE OF DISCHARGE: 09/12/2017 ADMISSION DIAGNOSIS: Severe degenerative osteoarthritis, right knee. DISCHARGE DIAGNOSIS: Severe degenerative osteoarthritis, right knee. HISTORY OF PRESENT ILLNESS: Mr. Walker is a 72-year-old male who has been a longstanding patient of Dr. Matti Haile at the orthopedic clinic at [place]. Currently, he is being treated for progressive and severe right knee pain. The patient states the pain is inhibiting his ability to ambulate safely. He has severe aching sensation with weightbearing activities. He has no alleviating factors, although in the past he has tried medications, bracing, ambulating with a cane, physical therapy and home exercises, arthroscopic surgery and multiple corticosteroid injections without significant relief of symptoms. He does have x-ray evidence of severe degenerative osteoarthritis of the right knee. While in the office, the patient was counseled on his diagnosis and treatment options. Risks, benefits, indications all were discussed. The patient did elect to proceed with surgical intervention after obtaining medical and cardiac clearance. ADMISSION/DATE OF SURGERY: 09/09/2017, right total knee arthroplasty. Postop after surgery the patient was admitted to [facility] where he received appropriate medical management, pain control, DVT prophylaxis, as well as physical therapy. DISCHARGE: Once being discharged from the hospital the patient is cleared to go to a jail facility. He is in stable condition. He may weight bear as tolerated. He has been instructed on appropriate wound care management. He has been provided a prescription for pain control and will resume his antiplatelet medication Plavix. The patient has been provided a followup appointment approximately 2 weeks from date of surgery. The patient asked appropriate questions, which have been answered. The patient is cleared for discharge. Dictated by: Matti Andrade PA-C Matti Haile MD JWM/TL/ , 07:54 AM , 08:11 AM
== END 2017-09-12 21:54 | DRG 470 ==
LOC: HSDC 05:34 → HSDI 07:02 → N06B 13:24
PROVIDERS: ADMIT Orthopaedic Surgery Sports Medicine; ATTEND Orthopaedic Surgery Sports Medicine
PROC: 3E0T3BZ Introduction of Anesthetic Agent into Peripheral Nerves and Plexi, Percutaneous Approach (ICD-10-PCS; 2017-09-09)
PROC: 0SRC0J9 Replacement of Right Knee Joint with Synthetic Substitute, Cemented, Open Approach (ICD-10-PCS; principal; 2017-09-09 08:08)
PROC: 30233N1 Transfusion of Nonautologous Red Blood Cells into Peripheral Vein, Percutaneous Approach (ICD-10-PCS; 2017-09-12)
DX: M17.11 Unilateral primary osteoarthritis, right knee (principal); E11.65 Type 2 diabetes mellitus with hyperglycemia; E11.42 Type 2 diabetes mellitus with diabetic polyneuropathy; Z99.81 Dependence on supplemental oxygen; D62 Acute posthemorrhagic anemia; I65.29 Occlusion and stenosis of unspecified carotid artery; J44.9 Chronic obstructive pulmonary disease, unspecified; I48.91 Unspecified atrial fibrillation; I10 Essential (primary) hypertension; G89.29 Other chronic pain; S46.002A Unspecified injury of muscle(s) and tendon(s) of the rotator cuff of left shoulder, initial encounter; M54.9 Dorsalgia, unspecified; I25.10 Atherosclerotic heart disease of native coronary artery without angina pectoris; E78.5 Hyperlipidemia, unspecified; K21.9 Gastro-esophageal reflux disease without esophagitis; G47.30 Sleep apnea, unspecified; Z95.1 Presence of aortocoronary bypass graft; Z79.84 Long term (current) use of oral hypoglycemic drugs; Z86.73 Personal history of transient ischemic attack (TIA), and cerebral infarction without residual deficits; Z79.02 Long term (current) use of antithrombotics/antiplatelets; I25.2 Old myocardial infarction
CPT/HCPCS: 36430; 71045; 73560; 80048; 82948; 83036; 85027; 86850; 86900; 86901; 86920; 90732; 94150; 94640; 94664; C1776; J0131; J0690; J0735; J1100; J1580; J1650; J1815; J1885; J2250; J2270; J2370; J2405; J2795; J3010; J3370; J7030; J7050; J7120; L1830; P9016

== ENCOUNTER 2018-02-11 19:59 | Observation (INO) ==
[2018-02-11 20:48] LABS: Baso % (Auto) 0.4 % (0.0-2.0); Eos # (Auto) 0.1 th/mm3 (0.0-0.4); Hemoglobin 10.2 gm/dL (13.0-17.0); Lymph # (Auto) 1.3 th/mm3 (1.0-4.8); Lymph % (Auto) 21.3 % (9.0-44.0); Mean Corpuscular Hemoglobin 21.9 pg (27.0-34.0); Mean Corpuscular Volume 68.5 fL (80.0-100.0); Mean Platelet Volume 8.6 fL (7.0-11.0); Mono # (Auto) 0.4 th/mm3 (0.0-0.9); Neut # (Auto) 4.5 th/mm3 (1.8-7.7); Neut % (Auto) 70.3 % (16.0-70.0); Platelet Count 176 th/mm3 (150-450); Red Blood Count 4.67 mil/mm3 (4.50-5.90); White Blood Count 6.3 th/mm3 (4.0-11.0)
[2018-02-11 20:56] LABS: Chloride 108 meq/L (98-107); Sodium 144 meq/L (136-145)
[2018-02-11 21:00] LABS: Albumin 3.8 g/dL (3.4-5.0); Anion Gap 9 meq/L (5-15); Calcium 8.6 mg/dL (8.5-10.1); Carbon Dioxide 26.7 meq/L (21.0-32.0); Glucose,Random 145 mg/dL (74-106); INR 1.1 Ratio; Magnesium 1.9 mg/dL (1.5-2.5); Prothrombin Time 11.2 sec (9.8-11.6)
[2018-02-11 21:01] LABS: Blood Urea Nitrogen 11 mg/dL (7-18)
[2018-02-11 21:03] LABS: Alanine Aminotransferase 18 U/L (12-78)
[2018-02-11 21:04] LABS: Aspartate Aminotransferase 13 U/L (15-37); Glomerular Filtration Rate 73 mL/min (>89)
[2018-02-11 21:05] LABS: Total Protein 7.5 g/dL (6.4-8.2)
[2018-02-11 21:06] LABS: Alkaline Phosphatase 61 U/L (45-117); Creatine Kinase 141 U/L (39-308)
[2018-02-11 21:10] LABS: Bilirubin,Urine Negative (Negative); Clarity,Urine Clear (Clear); Color,Urine Yellow (Yellw/Straw); Leukocyte Esterase,Urine Negative (Negative); Nitrite,Urine Negative (Negative); PH,Urine 6.5 (5.0-8.5); Urobilinogen,Urine 0.2 mg/dL (Less than 2)
--- NOTE | 2018-02-11 21:17 | ED ---
HPI General Chief complaint: Chest Pain Stated complaint: Weakness x3days Source: patient Mode of arrival: ambulatory Limitations: no limitations History of Present Illness HPI Narrative: 72-year-old male arrives to the ER describing fatigue. He notes difficulty standing up from bed. The bathroom is about 8 feet from the bed and walking to the bathroom requires extreme effort from the patient and upon arrival patient feels weak and the need to rest. For the past 2 days he has been sleeping in bed almost the whole day. Appetite is been decreased. He describes a chest discomfort on the left side continuous for 2-1/2 days. There is been no fever. No shortness of breath. No vomiting. The patient reports that 3 days ago he had to duck walk a motorcycle in very high outdoor he with high humidity which he states was much more exertion than typical for him. He believes this may be related to his current state of severe fatigue. The patient cannot recall of his medications however reports strict compliance MD Complaint: generalized weakness Onset (ago): day(s) Duration: constant Location: generalized Migration: none Severity: moderate Related Data Home Medications Medication Instructions Recorded Confirmed atorvastatin 10 mg PO DAILY 02/11/18 02/11/18 clopidogrel [Plavix] 75 mg PO DAILY 02/11/18 02/11/18 donepezil 5 mg PO DAILY 02/11/18 02/11/18 glipizide 5 mg PO DAILY 02/11/18 02/11/18 metoprolol tartrate 50 mg PO BID 02/11/18 02/11/18 sitagliptin [Januvia] 25 mg PO DAILY 02/11/18 02/11/18 Allergies Allergy/AdvReac Type Severity Reaction Status Date / Time No Known Allergies Allergy Unknown Uncoded 09/09/17 05:56 Review of Systems ROS: all other systems reviewed are negative [facility] Medical History Medical History COPD (chronic obstructive pulmonary disease) (Acute) Chest pain (Acute) Diabetes (Acute) Hypertension (Acute) Left shoulder pain (Acute) TIA (transient ischemic attack) (Acute) Surgical History Surgical History H/O heart artery stent (Acute) H/O heart bypass surgery (Acute) History of total right knee replacement (Acute) Social History Social History Substance History: No History of Abuse Second Hand Smoke Exposure: No Smoking Status: Never smoker How Often Do You Have a Drink Containing Alcohol: Monthly or less Recent Travel in [facility] within the Last 8 Weeks: No Recent Out of Country Travel within the Last 8 Weeks: No Immunization History Tetanus Immunization: Unsure Exam Narrative Exam Narrative: GENERAL: 72-year-old male well-nourished well-developed SKIN: Focused skin assessment warm/dry. HEAD: Atraumatic. Normocephalic. EYES: Pupils equal and round. No scleral icterus. No injection or drainage. ENT: No nasal bleeding or discharge. Mucous membranes pink and moist. NECK: Trachea midline. No JVD. CARDIOVASCULAR: Regular rate and rhythm. No murmur appreciated. RESPIRATORY: No accessory muscle use. Clear to auscultation. Breath sounds equal bilaterally. GASTROINTESTINAL: Abdomen soft, non-tender, nondistended. Hepatic and splenic margins not palpable. MUSCULOSKELETAL: No obvious deformities. No clubbing. No cyanosis. No edema. NEUROLOGICAL: Awake and alert. No obvious cranial nerve deficits. Motor grossly within normal limits. Normal speech. PSYCHIATRIC: Appropriate mood and affect; insight and judgment normal. Course Initial Documented Vital Signs Temperature 97.3 F L 02/11/18 20:10 Pulse Rate 60 02/11/18 20:10 Respiratory Rate 16 02/11/18 20:10 Blood Pressure 158/76 H 02/11/18 20:10 Pulse Oximetry 96 02/11/18 20:10 Last Documented Vital Signs Temperature 97.3 F L 02/11/18 20:25 Pulse Rate 63 02/11/18 20:34 Respiratory Rate 20 02/11/18 20:25 Blood Pressure 158/76 H 02/11/18 20:25 Pulse Oximetry 96 02/11/18 20:25 Medical Decision Making MDM Narrative Medical decision making narrative: Workup reveals an elevation in the BNP at 476. The patient underwent echocardiogram in January 2017 which revealed an EF of 60-65% with no wheeze. Chest x-ray is clear. Heart rate is been in the 60s here in the ED. The patient describes at the time of reassessment shortness of breath being the primary component of the overall state of weakness. 20 mg Lasix given here. I discussed with Brenda the extended provider for Dr. Coello. Medical Screen Exam Complete: Yes Emergency Medical Condition: Yes Medical Records Medical records reviewed: Yes I reviewed the patient's medical records. Lab Data Lab results reviewed: Yes I reviewed the patient's lab results. Result diagrams: 02/11/18 20:25 02/11/18 20:25 Lab Results 02/11/18 02/11/18 02/11/18 Range/Units 20:25 20:25 20:25 CBC w Diff Slide review pending WBC 6.3 (4.0-11.0) th/mm3 RBC 4.67 (4.50-5.90) mil/mm3 Hgb 10.2 L (13.0-17.0) gm/dL Hct 32.0 L (39.0-51.0) % MCV 68.5 L (80.0-100.0) fL MCH 21.9 L (27.0-34.0) pg MCHC 32.0 (32.0-36.0) % RDW 18.0 H (11.6-17.2) % Plt Count 176 (150-450) th/mm3 MPV 8.6 (7.0-11.0) fL Neut % (Auto) 70.3 H (16.0-70.0) % Lymph % (Auto) 21.3 (9.0-44.0) % [place] % (Auto) 6.0 (0.0-8.0) % Eos % (Auto) 2.0 (0.0-4.0) % Baso % (Auto) 0.4 (0.0-2.0) % Neut # (Auto) 4.5 (1.8-7.7) th/mm3 Lymph # (Auto) 1.3 (1.0-4.8) th/mm3 [place] # (Auto) 0.4 (0.0-0.9) th/mm3 Eos # (Auto) 0.1 (0.0-0.4) th/mm3 Baso # (Auto) 0.0 (0.0-0.2) th/mm3 WBC Differential . Diff Scan Auto diff confirmed Differential Comment . PT 11.2 (9.8-11.6) sec INR 1.1 Ratio Sodium (136-145) meq/L Potassium (3.5-5.1) meq/L Chloride (98-107) meq/L Carbon Dioxide (21.0-32.0) meq/L Anion Gap (5-15) meq/L BUN (7-18) mg/dL Creatinine (0.60-1.30) mg/dL Estimated GFR (>89) mL/min Random Glucose (74-106) mg/dL Calcium (8.5-10.1) mg/dL Magnesium (1.5-2.5) mg/dL Total Bilirubin (0.2-1.0) mg/dL AST (15-37) U/L ALT (12-78) U/L Alkaline Phosphatase (45-117) U/L Total Creatine Kinase (39-308) U/L Troponin I (0.02-0.05) ng/mL B-Natriuretic Peptide 476 H (0-100) pg/mL Total Protein (6.4-8.2) g/dL Albumin (3.4-5.0) g/dL TSH (0.358-3.740) uIU/mL Urine Color (Yellw/Straw) Urine Clarity (Clear) Urine pH (5.0-8.5) Ur Specific [place] (1.002-1.035) Urine Protein (Neg-Trace) mg/dL Urine Glucose (UA) (Negative) mg/dL Urine Ketones (Negative) mg/dL Urine Occult Blood (Negative) Urine Nitrate (Negative) Urine Bilirubin (Negative) Urine Urobilinogen (Less than 2) mg/dL Ur Leukocyte Esterase (Negative) Urine RBC (0-3) /hpf Urine WBC (0-5) /hpf Micro UA Comment Urine Culture Comments 02/11/18 02/11/18 Range/Units 20:25 21:00 CBC w Diff WBC (4.0-11.0) th/mm3 RBC (4.50-5.90) mil/mm3 Hgb (13.0-17.0) gm/dL Hct (39.0-51.0) % MCV (80.0-100.0) fL MCH (27.0-34.0) pg MCHC (32.0-36.0) % RDW (11.6-17.2) % Plt Count (150-450) th/mm3 MPV (7.0-11.0) fL Neut % (Auto) (16.0-70.0) % Lymph % (Auto) (9.0-44.0) % [place] % (Auto) (0.0-8.0) % Eos % (Auto) (0.0-4.0) % Baso % (Auto) (0.0-2.0) % Neut # (Auto) (1.8-7.7) th/mm3 Lymph # (Auto) (1.0-4.8) th/mm3 [place] # (Auto) (0.0-0.9) th/mm3 Eos # (Auto) (0.0-0.4) th/mm3 Baso # (Auto) (0.0-0.2) th/mm3 WBC Differential Diff Scan Differential Comment PT (9.8-11.6) sec INR Ratio Sodium 144 (136-145) meq/L Potassium 4.0 (3.5-5.1) meq/L Chloride 108 H (98-107) meq/L Carbon Dioxide 26.7 (21.0-32.0) meq/L Anion Gap 9 (5-15) meq/L BUN 11 (7-18) mg/dL Creatinine 1.00 (0.60-1.30) mg/dL Estimated GFR 73 L (>89) mL/min Random Glucose 145 H (74-106) mg/dL Calcium 8.6 (8.5-10.1) mg/dL Magnesium 1.9 (1.5-2.5) mg/dL Total Bilirubin 0.6 (0.2-1.0) mg/dL AST 13 L (15-37) U/L ALT 18 (12-78) U/L Alkaline Phosphatase 61 (45-117) U/L Total Creatine Kinase 141 (39-308) U/L Troponin I Less than 0.02 L (0.02-0.05) ng/mL B-Natriuretic Peptide (0-100) pg/mL Total Protein 7.5 (6.4-8.2) g/dL Albumin 3.8 (3.4-5.0) g/dL TSH 1.960 (0.358-3.740) uIU/mL Urine Color Yellow (Yellw/Straw) Urine Clarity Clear (Clear) Urine pH 6.5 (5.0-8.5) Ur Specific [place] 1.010 (1.002-1.035) Urine Protein Negative (Neg-Trace) mg/dL Urine Glucose (UA) 1000 or greater H (Negative) mg/dL Urine Ketones Negative (Negative) mg/dL Urine Occult Blood Small H (Negative) Urine Nitrate Negative (Negative) Urine Bilirubin Negative (Negative) Urine Urobilinogen 0.2 (Less than 2) mg/dL Ur Leukocyte Esterase Negative (Negative) Urine RBC 4-15 H (0-3) /hpf Urine WBC 6-8 H (0-5) /hpf Micro UA Comment Culture not ind Urine Culture Comments Culture not ind Imaging Data Attestation: I personally reviewed and interpreted this imaging study as follows : Radiologist's impression: Chest X-Ray 02/11/18 20:30 CONCLUSION: No focal infiltrates seen. Stable cardiomegaly. ECG Data Interpretation: EKG shows a rate of 63 with PVCs and nonspecific ST changes in multiple leads, sinus Discharge Plan Physicians Team ED Provider: Ag Hernandez Primary Care Provider: Leo Raines Rxs /Orders / Referrals /Forms Prescriptions: No Action donepezil 5 mg Tablet 5 mg PO DAILY RF: 0 atorvastatin 10 mg Tablet 10 mg PO DAILY RF: 0 clopidogrel [Plavix] 75 mg Tablet 75 mg PO DAILY RF: 0 metoprolol tartrate 50 mg Tablet 50 mg PO BID RF: 0 glipizide 5 mg Tablet 5 mg PO DAILY RF: 0 sitagliptin [Januvia] 25 mg Tablet 25 mg PO DAILY RF: 0 Discharge Interventions Interventions: Vital Signs Last Done: 02/11/18 20:10 Status ED Status: In Room
--- NOTE | 2018-02-11 21:18 | XR ---
EXAM DATE: 02/11/2018 8:55 PM EDT AGE/SEX: 72 years / Male INDICATIONS: Weakness for 3 days,chest pain. CLINICAL DATA: This is the patient's initial encounter. Patient reports that signs and symptoms have been present for 3 days and indicates a pain score of 2/10. MEDICAL/SURGICAL HISTORY: Myocardial infarction. Cerebrovascular disease. Hypertension. Fredi ntia. CABG. Appendectomy. Spinal stimulator. COMPARISON: [facility] [place], CHEST SINGLE AP, 09/12/2017. . FINDINGS: Stable cardiomegaly. Mild indistinctness of the bronchopulmonary markings without focal areas of airs pace opacity. Both hemidiaphragms are well delineated. Moderate degenerative changes in the shoulders and thoracic spine. Evidence of prior median sternotomy. Spinal stimulation leads in the midthoracic region. CONCLUSION: No focal infiltrates seen. Stable cardiomegaly. Electronically signed by: Massimo Murphy MD 02/11/2018 9:17 PM EDT
[2018-02-11] MEDS ORDERED: Dextrose 50% in Water 50 ML Vial IV.PUSH PRN (22:03)
[2018-02-11] MEDS ORDERED: Bisacodyl 10 MG Supp RECTAL PRN (22:04)
[2018-02-11] MEDS: Heparin - SQ 10,000 UNITS/ML Vial SQ SCH (22:44)
--- NOTE | 2018-02-11 23:29 | ECG ---
Date Performed: 02/11/2018 Time Performed: 20:40:41 PTAGE: 72 years EKG: PROBABLE Sinus rhythm WITH SHORT MS INTERVAL WITH OCCASIONAL VENTRICULAR PREMATURE COMPLEXES NONSPECIFIC ST & T-WAVE ABNOR MALITY BORDERLINE ECG PREVIOUS TRACING : 03/13/2017 14.14 Compared to previous tracing, rate has increased, QT no lo nger prolonged DOCTOR: Jamie Hernandez Interpretating Date/Time 02/11/2018 23:28:07
[2018-02-12 03:31] LABS: Creatine Kinase 110 U/L (39-308)
[2018-02-12 05:53] LABS: Baso % (Auto) 0.4 % (0.0-2.0); Eos # (Auto) 0.1 th/mm3 (0.0-0.4); Eos % (Auto) 1.3 % (0.0-4.0); Hematocrit 33.5 % (39.0-51.0); Hemoglobin 9.9 gm/dL (13.0-17.0); Lymph # (Auto) 1.1 th/mm3 (1.0-4.8); Lymph % (Auto) 15.1 % (9.0-44.0); Mean Corpuscular Hemoglobin 20.7 pg (27.0-34.0); Mean Corpuscular Volume 70.1 fL (80.0-100.0); Mean Platelet Volume 9.2 fL (7.0-11.0); Mono # (Auto) 0.4 th/mm3 (0.0-0.9); Mono % (Auto) 6.1 % (0.0-8.0); Neut # (Auto) 5.5 th/mm3 (1.8-7.7); Neut % (Auto) 77.1 % (16.0-70.0); Platelet Count 180 th/mm3 (150-450); Red Blood Count 4.78 mil/mm3 (4.50-5.90); Red Cell Distribution Width 17.7 % (11.6-17.2); White Blood Count 7.1 th/mm3 (4.0-11.0)
[2018-02-12 05:59] LABS: Mean Corpuscular HGB Conc 29.6 % (32.0-36.0)
[2018-02-12 06:08] LABS: Chloride 106 meq/L (98-107); Potassium 3.6 meq/L (3.5-5.1); Sodium 142 meq/L (136-145)
[2018-02-12 06:11] LABS: Anion Gap 11 meq/L (5-15); Calcium 8.6 mg/dL (8.5-10.1); Carbon Dioxide 25.4 meq/L (21.0-32.0); Glucose,Random 141 mg/dL (74-106)
[2018-02-12 06:12] LABS: Blood Urea Nitrogen 11 mg/dL (7-18)
[2018-02-12] MEDS: Insulin NovoLOG Aspart Correctional Sugar Inj SQ SCH ×5 (06:13→21:17)
[2018-02-12 06:15] LABS: Glomerular Filtration Rate Greater Than 89 mL/min (>89)
[2018-02-12 06:18] LABS: Creatine Kinase 110 U/L (39-308)
[2018-02-12] MEDS: Heparin - SQ 10,000 UNITS/ML Vial SQ SCH ×3 (06:18→21:17)
[2018-02-12 07:10] LABS: Ovalocytes 1+
--- NOTE | 2018-02-12 09:41 | P.HP ---
History of Present Illness Primary Care Physician: Leo Raines MD Chief Complaint: Fatigue History of Present Illness: This is a 72-year-old male with a history of coronary artery disease status post CABG, stent, COPD, chronic respiratory failure on home oxygen, diabetes mellitus, hypertension, TIA and chronic left shoulder pain. Family history of dementia. He presents to the emergency room complaining of fatigue for 3 days. Started over the weekend Saturday when he participated in a training to obtain a motorcycle license. He thought he had heat exhaustion. Since then he has been drinking Gatorade but continued to have fatigue which was even getting worse prompting ER visit. He also has associated anorexia. He felt his abdomen was distended making it difficult to take a deep breath. Denies abdominal pain, constipation, diarrhea or UTI symptoms. He has chronic dyspnea on exertion from his COPD which is stable. Last Saturday while attending [employer] services, he developed mild left chest discomfort scale of 1 to 2/10 for 1 hour. It recurred 2 more times that lasted less than 5 minutes. There was no radiation of pain or associated signs and symptoms. While being examined, he also complained of pleuritic left-sided chest pain. Denies leg pain and swelling but has neuropathy. Workup so far is remarkable for elevated BNP for which patient received Lasix in the emergency department, patient ruled out for NC with negative cardiac enzymes however his d-dimer is elevated and his EKG is abnormal with prolonged QT. TSH unremarkable. He denies taking new medications. All other systems reviewed negative [facility] [place] - History History Provided By: Patient, Medical Record - Medical History Medical History: Medical History (Last Updated 02/11/18 @ 20:32 by Aniya Otriz RN) COPD (chronic obstructive pulmonary disease) Chest pain Diabetes Hypertension Left shoulder pain TIA (transient ischemic attack) - Surgical History Surgical History: Surgical History (Last Updated 02/11/18 @ 20:32 by Aniya Ortiz RN) H/O heart artery stent H/O heart bypass surgery History of total right knee replacement - Tobacco History Second Hand Smoke Exposure: No Tobacco Use In Past 30 Days: No Smoking Status: Never smoker - Alcohol History How Often Do You Have a Drink Containing Alcohol: Monthly or less - Substance Use History Substance History: No History of Abuse - Travel History Recent Travel in the [place] Within the Last 8 Weeks: No Recent Travel Out of the Country Within the Last 8 Weeks: No - Immunization History Tetanus Immunization: Unsure Medications and Allergies Active Medications: Active Medications Acetaminophen (Tylenol) 650 mg PO Q4H PRN PRN Reason: Temp > 100.4/pain scale 1-5 Hydrocodone Bitart/Acetaminophen ([place] 7.5/325) 7.5 tab PO BID PRN PRN Reason: PAIN SCALE 6-10 Al Hydroxide/Mg Hydroxide (Milk Of Becky Liq) 30 ml PO Q12H PRN PRN Reason: Mild Constipation Atorvastatin Calcium (Lipitor) 10 mg PO DAILY [facility] Last Admin: 02/12/18 08:47 Dose: 10 mg Bisacodyl (Dulcolax Supp) 10 mg RECTAL DAILY PRN PRN Reason: SEVERE CONSITIPATION Clopidogrel Bisulfate (Plavix) 75 mg PO DAILY [facility] Last Admin: 02/12/18 08:47 Dose: 75 mg Dextrose (D50w Vial) 50 ml IV.PUSH UNSCH PRN PRN Reason: PER HYPOGLYCEMIA PROTOCOL Donepezil HCl (Aricept) 5 mg PO DAILY [facility] Last Admin: 02/12/18 08:47 Dose: 5 mg Glucagon (Glucagon Inj) 1 mg OTHER PRN PRN PRN Reason: for Hypoglycemia Protocol Heparin Sodium (Porcine) (Heparin Inj) 5,000 units SQ Q8HR [facility] Last Admin: 02/12/18 06:18 Dose: 5,000 units Insulin Aspart (Novolog Insulin Correctional Sugar Inj) 0 unit SQ ACHS [facility]; Protocol Metoprolol Tartrate (Lopressor) 50 mg PO BID [facility] Potassium Chloride (K-Dur) 20 meq PO ONCE ONE Stop: 02/12/18 10:01 Sennosides (Senokot) 17.2 mg PO Q12H PRN PRN Reason: Moderate Constipation Sodium Chloride (Ns Flush) 2 ml IV.FLUSH PRN PRN PRN Reason: FLUSH AFTER USING IV ACCESS Allergies Allergy/AdvReac Type Severity Reaction Status Date / Time No Known Allergies Allergy Unknown Uncoded 09/09/17 05:56 Home Medications Medication Instructions Recorded Confirmed Type atorvastatin 10 mg PO DAILY 02/11/18 02/11/18 History clopidogrel [Plavix] 75 mg PO DAILY 02/11/18 02/11/18 History donepezil 5 mg PO DAILY 02/11/18 02/11/18 History glipizide 5 mg PO DAILY 02/11/18 02/11/18 History metoprolol tartrate 50 mg PO BID 02/11/18 02/11/18 History sitagliptin [Januvia] 25 mg PO DAILY 02/11/18 02/11/18 History hydrocodone-acetaminophen PO QID PRN 02/12/18 History Exam Vital signs: Vital Signs 02/11/18 20:10 02/11/18 20:25 02/11/18 20:34 Temperature 97.3 F L 97.3 F L Pulse Rate 60 60 63 Respiratory Rate 16 20 Blood Pressure 158/76 H 158/76 H Pulse Oximetry 96 96 02/11/18 22:04 02/11/18 23:41 02/12/18 00:00 Temperature 98.9 F 97.9 F Pulse Rate 69 64 63 Respiratory Rate 20 20 18 Blood Pressure 120/56 L 122/70 137/73 Pulse Oximetry 98 02/12/18 00:30 02/12/18 04:00 02/12/18 07:15 Temperature 99.2 F Pulse Rate 68 65 62 Respiratory Rate 18 Blood Pressure 120/61 Pulse Oximetry 97 02/12/18 08:00 Temperature 99.0 F Pulse Rate 68 Respiratory Rate 19 Blood Pressure 115/55 L Pulse Oximetry 95 Intake & Output 02/11/18 02/12/18 02/12/18 18:59 06:59 18:59 Intake Total 0 / 0 Output Total 1450 / 1450 Balance -1450 / -1450 0 / 0 Weight 92.7 kg Intake: Oral 0 / 0 Output: Urine 1450 / 1450 Other: # Voids 3 Weight On Admission 92.7 kg Narrative: GENERAL: Well-developed, well-nourished in no distress SKIN: Warm and dry. HEAD: Atraumatic. Normocephalic. EYES: Pupils equal and round. No scleral icterus. No injection or drainage. ENT: No nasal bleeding or discharge. Mucous membranes pink and moist. NECK: Trachea midline. No JVD. CARDIOVASCULAR: Regular rate and rhythm. RESPIRATORY: No accessory muscle use. Clear to auscultation. Breath sounds equal bilaterally. GASTROINTESTINAL: Abdomen soft, non-tender, nondistended. MUSCULOSKELETAL: Extremities without clubbing, cyanosis, or edema. No obvious deformities. NEUROLOGICAL: Awake and alert. No obvious cranial nerve deficits. Motor grossly within normal limits. Five out of 5 muscle strength in the arms and legs. Normal speech. PSYCHIATRIC: Appropriate mood and affect; insight and judgment normal. Results - Labs CBC & Chem 7: 02/12/18 05:00 02/12/18 05:00 Labs: Laboratory Results - last 24 hr 02/11/18 02/11/18 02/11/18 20:25 20:25 20:25 CBC w Diff Slide review pending WBC 6.3 RBC 4.67 Hgb 10.2 L Hct 32.0 L MCV 68.5 L MCH 21.9 L MCHC 32.0 RDW 18.0 H Plt Count 176 MPV 8.6 Neut % (Auto) 70.3 H Lymph % (Auto) 21.3 Gibson % (Auto) 6.0 Eos % (Auto) 2.0 Baso % (Auto) 0.4 Neut # (Auto) 4.5 Lymph # (Auto) 1.3 Gibson # (Auto) 0.4 Eos # (Auto) 0.1 Baso # (Auto) 0.0 WBC Differential . Diff Scan Auto diff confirmed Differential Comment . Ovalocytes PT 11.2 INR 1.1 D-Dimer Quant (PE/DVT) Sodium Potassium Chloride Carbon Dioxide Anion Gap BUN Creatinine Estimated GFR POC Glucose Random Glucose Calcium Magnesium Total Bilirubin AST ALT Alkaline Phosphatase Total Creatine Kinase Troponin I B-Natriuretic Peptide 476 H Total Protein Albumin TSH Urine Color Urine Clarity Urine pH Ur Specific [place] Urine Protein Urine Glucose (UA) Urine Ketones Urine Occult Blood Urine Nitrate Urine Bilirubin Urine Urobilinogen Ur Leukocyte Esterase Urine RBC Urine WBC Micro UA Comment Urine Culture Comments 02/11/18 02/11/18 02/11/18 20:25 20:25 21:00 CBC w Diff WBC RBC Hgb Hct MCV MCH MCHC RDW Plt Count MPV Neut % (Auto) Lymph % (Auto) Gibson % (Auto) Eos % (Auto) Baso % (Auto) Neut # (Auto) Lymph # (Auto) Gibson # (Auto) Eos # (Auto) Baso # (Auto) WBC Differential Diff Scan Differential Comment Ovalocytes PT INR D-Dimer Quant (PE/DVT) 0.53 H Sodium 144 Potassium 4.0 Chloride 108 H Carbon Dioxide 26.7 Anion Gap 9 BUN 11 Creatinine 1.00 Estimated GFR 73 L POC Glucose Random Glucose 145 H Calcium 8.6 Magnesium 1.9 Total Bilirubin 0.6 AST 13 L ALT 18 Alkaline Phosphatase 61 Total Creatine Kinase 141 Troponin I Less than 0.02 L B-Natriuretic Peptide Total Protein 7.5 Albumin 3.8 TSH 1.960 Urine Color Yellow Urine Clarity Clear Urine pH 6.5 Ur Specific [place] 1.010 Urine Protein Negative Urine Glucose (UA) 1000 or greater H Urine Ketones Negative Urine Occult Blood Small H Urine Nitrate Negative Urine Bilirubin Negative Urine Urobilinogen 0.2 Ur Leukocyte Esterase Negative Urine RBC 4-15 H Urine WBC 6-8 H Micro UA Comment Culture not ind Urine Culture Comments Culture not ind 02/12/18 02/12/18 02/12/18 02:30 02:41 05:00 CBC w Diff Slide review pending WBC 7.1 RBC 4.78 Hgb 9.9 L Hct 33.5 L MCV 70.1 L MCH 20.7 L MCHC 29.6 L RDW 17.7 H Plt Count 180 MPV 9.2 Neut % (Auto) 77.1 H Lymph % (Auto) 15.1 Gibson % (Auto) 6.1 Eos % (Auto) 1.3 Baso % (Auto) 0.4 Neut # (Auto) 5.5 Lymph # (Auto) 1.1 Gibson # (Auto) 0.4 Eos # (Auto) 0.1 Baso # (Auto) 0.0 WBC Differential . Diff Scan Auto diff confirmed Differential Comment . Ovalocytes 1+ H PT INR D-Dimer Quant (PE/DVT) Sodium Potassium Chloride Carbon Dioxide Anion Gap BUN Creatinine Estimated GFR POC Glucose 156 H Random Glucose Calcium Magnesium Total Bilirubin AST ALT Alkaline Phosphatase Total Creatine Kinase 110 Troponin I Less than 0.02 L B-Natriuretic Peptide Total Protein Albumin TSH Urine Color Urine Clarity Urine pH Ur Specific [place] Urine Protein Urine Glucose (UA) Urine Ketones Urine Occult Blood Urine Nitrate Urine Bilirubin Urine Urobilinogen Ur Leukocyte Esterase Urine RBC Urine WBC Micro UA Comment Urine Culture Comments 02/12/18 05:00 CBC w Diff WBC RBC Hgb Hct MCV MCH MCHC RDW Plt Count MPV Neut % (Auto) Lymph % (Auto) Gibson % (Auto) Eos % (Auto) Baso % (Auto) Neut # (Auto) Lymph # (Auto) Gibson # (Auto) Eos # (Auto) Baso # (Auto) WBC Differential Diff Scan Differential Comment Ovalocytes PT INR D-Dimer Quant (PE/DVT) Sodium 142 Potassium 3.6 Chloride 106 Carbon Dioxide 25.4 Anion Gap 11 BUN 11 Creatinine 0.76 Estimated GFR Greater than 89 POC Glucose Random Glucose 141 H Calcium 8.6 Magnesium Total Bilirubin AST ALT Alkaline Phosphatase Total Creatine Kinase 110 Troponin I Less than 0.02 L B-Natriuretic Peptide Total Protein Albumin TSH Urine Color Urine Clarity Urine pH Ur Specific [place] Urine Protein Urine Glucose (UA) Urine Ketones Urine Occult Blood Urine Nitrate Urine Bilirubin Urine Urobilinogen Ur Leukocyte Esterase Urine RBC Urine WBC Micro UA Comment Urine Culture Comments - Imaging Impressions Chest X-Ray 02/11/18 20:30 CONCLUSION: No focal infiltrates seen. Stable cardiomegaly. Caprini VTE Risk Assessment Caprini VTE Risk Assessment: Moderate/High Risk (score >= 2) Caprini Risk Assessment Model: Point Value = 1 Point Value = 2 Point Value = 3 Point Value = 5 Age 41-60 Minor surgery BMI > 25 kg/m2 Swollen legs Varicose veins or History of unexplained or recurrent spontaneous Oral contraceptives or hormone replacement Sepsis (< 1 month) Serious lung disease, including pneumonia (< 1 month) Abnormal pulmonary function Acute myocardial infarction Congestive heart failure (< 1 month) History of inflammatory bowel disease Medical patient at bed rest Age 61-74 Arthroscopic surgery Major open surgery (> 45 min) Laparoscopic surgery (> 45 min) Malignancy Confined to bed (> 72 hours) Immobilizing plaster cast Central venous access Age >= 75 History of VTE Family history of VTE Factor V Leiden Prothrombin [id number] Lupus anticoagulant Anticardiolipin antibodies Elevated serum homocysteine Heparin-induced thrombocytopenia Other congenital or acquired thrombophilia Stroke (< 1 month) Elective arthroplasty Hip, pelvis, or leg fracture Acute spinal cord injury (< 1 month) Prophylaxis Regimen: Total Risk Factor Score Risk Level Prophylaxis Regimen 0-1 Low Early ambulation 2 Moderate Order ONE of the following: *Sequential Compression Device (SCD) *Heparin 5000 units SQ BID 3-4 Higher Order ONE of the following medications: *Heparin 5000 units SQ TID *Enoxaparin/Lovenox 40 mg SQ daily (WT < 150 kg, CrCl > 30 mL/min) *Enoxaparin/Lovenox 30 mg SQ daily (WT < 150 kg, CrCl > 10-29 mL/min) *Enoxaparin/Lovenox 30 mg SQ BID (WT < 150 kg, CrCl > 30 mL/min) AND/OR *Sequential Compression Device (SCD) 5 or more Highest Order ONE of the following medications: *Heparin 5000 units SQ TID (Preferred with Epidurals) *Enoxaparin/Lovenox 40 mg SQ daily (WT < 150 kg, CrCl > 30 mL/min) *Enoxaparin/Lovenox 30 mg SQ daily (WT < 150 kg, CrCl > 10-29 mL/min) *Enoxaparin/Lovenox 30 mg SQ BID (WT < 150 kg, CrCl > 30 mL/min) AND *Sequential Compression Device (SCD) Assessment and Plan - Plan This is a 72-year-old male with a history of coronary artery disease status post CABG, stent, COPD, chronic respiratory failure on home oxygen, diabetes mellitus, hypertension, TIA and chronic left shoulder pain. He presents to the emergency room complaining of fatigue for 3 days. Fatigue. Thought it was related to heat exhaustion but has worsening symptom despite hydration. His chemistries are unremarkable. TSH within normal limits. This could be multifactorial. PT evaluation. Prolonged QT. Telemetry shows heart rate of 58. BP within normal limits. Continue metoprolol with hold parameters. Consult patient's label stitcher Dr. Santana Elevated BNP. Follow-up to the echo. Atypical chest pain with history of CAD status post CABG and stent. Ruled out for NC but has elevated d-dimer. Continue Plavix and metoprolol. Obtain CTA. DVT prophylaxis with SCD and subcu heparin Discharge Planning: Possible dc with home care in 1-2 days pending workup
[2018-02-12] MEDS: Metoprolol Tartrate 50 MG Tablet PO SCH ×2 (10:14→20:28)
--- NOTE | 2018-02-12 11:46 | CT ---
EXAM DATE: 02/12/2018 11:32 AM EDT AGE/SEX: 72 years / Male INDICATIONS: Left chest pain. Short of breath. CLINICAL DATA: This is the patient's initial encounter. Patient reports that signs and symptoms have been present for 3 days and indicates a pain score of 1/10. MEDICAL/SURGICAL HISTORY: Chronic obstructive pulmonary disease. Diabetes. Transient ischemic att ack. Hypertension. Coronary artery stent. RADIATION DOSE: 17.59 CTDI (mGy) COMPARISON: POI, CT CHEST W/ CONTRAST, 11/23/2010. . TECHNIQUE: Volumetric scanning was performed using a multi-row detector CT scanner during bolus infu ryan of 85 ml Omnipaque 350 (iohexol) nonionic water-soluble contrast as a single exam dose. The jhonny a was post processed with a variety of visualization algorithms including full volume maximum intensi ty projection and sliding thin slab reformation. Using automated exposure control and adjustment of the mA and/or kV according to patient size, radiation dose was kept as low as reasonably achievable t o obtain optimal diagnostic quality images. DICOM format image data is available electronically for review and comparison. FINDINGS: There is no evidence of pulmonary embolism. There are small bilateral pleural effusions, larger on the right than the left. There is minimal probable atelectasis in the right lung base. There are tiny nodular densities in the lungs bilaterally including a subpleural nodule in the posterior lateral left lung base and a couple of small nodules in the lateral periphery of the right lung. There is moderate dilatation of the ascending thoracic aorta to a diameter of 5.2 cm. There are patch y atherosclerotic calcifications, including within the coronary vessels. No evidence of mediastinal a denopathy. CONCLUSION: 1. No evidence of pulmonary embolism 2. Small bilateral effusions. 3. Small bilateral lung nodules which will need to be followed Electronically signed by: Loc Reid MD 02/12/2018 11:45 AM EDT
[2018-02-12] MEDS: Acetaminophen 325 MG Tablet PO PRN ×2 (12:32→20:27)
--- NOTE | 2018-02-12 14:00 | ECHRPT ---
Indication: SOB CONCLUSIONS Normal left ventricular size. Wall thickness is normal. The left ventricular systolic function is low normal with an estimated ejection fraction of 50%. No regional wall motion abnormalities are present. Mild aortic dilatation at the level of the sinuses of Valsalva. Trace mitral valve regurgitation. Trace aortic valve regurgitation. There is mild tricuspid valve regurgitation. The estimated pulmonary arterial pressure is 45 mmHg. BP: / HR: Rhythm: Sinus MEASUREMENTS (Male / Female) Normal Values Technical Quality:Fair 2D ECHO LV Diastolic Diameter PLAX 5.4 cm 4.2 - 5.9 / 3.9 - 5.3 cm LV Systolic Diameter PLAX 3.8 cm IVS Diastolic Thickness 1.3 cm 0.6 - 1.0 / 0.6 - 0.9 cm LVPW Diastolic Thickness 1.3 cm 0.6 - 1.0 / 0.6 - 0.9 cm LV Relative Wall Thickness 0.5 RV Internal Dim ED PLAX 3.7 cm LVOT Diameter 2.4 cm Aortic Root Diameter 4.7 cm LA Systolic Diameter LX 4.3 cm 3.0 - 4.0 / 2.7 - 3.8 cm M-MODE AV Cusp Separation MM 2.4 cm DOPPLER AV Peak Velocity 136.0 cm/s AV Peak Gradient 7.4 mmHg AV Mean Gradient 4.0 mmHg AV Velocity Time Integral 27.9 cm AI Peak Velocity 423.5 cm/s AI Peak Gradient 71.7 mmHg AI Pressure Half Time 668.5 ms LVOT Peak Velocity 110.0 cm/s LVOT Peak Gradient 4.8 mmHg LVOT Velocity Time Integral 24.1 cm AV Area Cont Eq vti 3.9 cm AV Area Cont Eq pk 3.7 cm Mitral E Point Velocity 90.3 cm/s Mitral A Point Velocity 32.6 cm/s Mitral E to A Ratio 2.8 LV E' Lateral Velocity 12.5 cm/s Mitral E to LV E' Lateral Ratio 7.2 LV E' Septal Velocity 5.7 cm/s Mitral E to LV E' Septal Ratio 16.0 TR Peak Velocity 316.0 cm/s TR Peak Gradient 39.9 mmHg Right Atrial Pressure 10.0 mmHg Pulmonary Artery Systolic Pressu 49.9 mmHg Right Ventricular Systolic Press 49.9 mmHg PV Peak Velocity 58.7 cm/s PV Peak Gradient 1.4 mmHg FINDINGS LEFT VENTRICLE Normal left ventricular size. Wall thickness is normal. The left ventricular systolic function is low normal with an estimated ejection fraction of 50%. No regional wall motion abnormalities are present. RIGHT VENTRICLE Normal right ventricular size and systolic function. LEFT ATRIUM The left atrial size is normal. RIGHT ATRIUM The right atrial size is normal. ATRIAL SEPTUM No atrial level shunt is demonstrated by color flow Doppler interrogation. AORTA Mild aortic dilatation at the level of the sinuses of Valsalva. MITRAL VALVE Trace mitral valve regurgitation. AORTIC VALVE Trace aortic valve regurgitation. TRICUSPID VALVE There is mild tricuspid valve regurgitation. The estimated pulmonary arterial pressure is 45 mmHg. PULMONARY VALVE No pulmonary valve regurgitation or stenosis. VESSELS There is less than 50% respiratory change in dimension of the inferior vena cava (abnormal). PERICARDIUM No pericardial effusion. Hernan Finney MD (Electronically Signed) Final Date:12 February 2018 13:58
--- NOTE | 2018-02-12 20:02 | MB ---
cc: Jessenia Edmonds MD DATE: 02/12/2018 REASON FOR CONSULTATION: Shortness of breath and elevated BNP. HISTORY OF PRESENT ILLNESS: Mr. Walker is a 72-year-old man who does have a history of prior CABG, stent, severe COPD on home oxygen and diabetes. He presented to the emergency room with 3 days of progressive shortness of breath. He indicates he believes it was secondary to heat exhaustion. He was not able to say whether he had gained any weight or had any lower extremity edema. He does report that his shortness of breath is basically back to baseline at this point. PAST MEDICAL HISTORY: Significant for hypertension, hyperlipidemia, diabetes, COPD, CAD, TIA. CURRENT MEDICATIONS: Per the record. ALLERGIES: NO KNOWN DRUG ALLERGIES. SOCIAL HISTORY: The patient has not smoked. REVIEW OF SYSTEMS: Except as mentioned in the HPI, all 12 systems are negative. PHYSICAL EXAMINATION: VITAL SIGNS: 99.0, 68, 115/55. GENERAL: He is a well-appearing man, who is in no apparent distress on oxygen. NECK: Free from JVD. LUNGS: Decreased, but clear to auscultation. CARDIOVASCULAR: He has a normal S1 and S2. There is a 2/6 systolic murmur. No rubs or gallops were appreciated. ABDOMEN: Soft. EXTREMITIES: Free from edema. DIAGNOSTIC DATA: Chest CT is negative for PE. There are small bilateral effusions and bilateral lung nodules. Echocardiogram from 02/12/2018, shows normal LV function. There is not any significant valvular heart disease. LABORATORY DATA: Significant for hemoglobin of 10.2. His serial troponins are less than less than 0.02/less than 0.02. The BNP is 476. Nuclear stress testing from February 2017 showed normal LV function and normal perfusion. IMPRESSIONS: Elevated BNP -- shortness of breath -- at this point, the patient certainly has a history of chronic obstructive pulmonary disease. There may be some superimposed right heart failure. His recent nuclear stress test did not show any ischemia. Both the nuclear and echo from today show normal LV function. The patient is feeling back to baseline with regard to his breathing at this time. The patient is also anemic, which will also exacerbate his shortness of breath and fatigue. The patient is back to baseline without any diuretics. Thus, at this point, I would simply continue his present medications. It is reasonable for him to be discharged in the morning after a dose of IV Lasix. At this point, I would just simply continue conservative measures, which does include a beta thanh. I would also try and limit his sodium and fluids. It is reasonable for him to be discharged in the morning. MD WILMER Lowe/raven , 05:27 PM , 05:37 PM
[2018-02-12] MEDS: Loperamide 2 MG Capsule PO PRN (21:17)
[2018-02-13 05:58] LABS: Chloride 104 meq/L (98-107); Potassium 3.7 meq/L (3.5-5.1); Sodium 139 meq/L (136-145)
[2018-02-13 06:02] LABS: Calcium 8.4 mg/dL (8.5-10.1)
[2018-02-13 06:03] LABS: Anion Gap 9 meq/L (5-15); Blood Urea Nitrogen 12 mg/dL (7-18); Carbon Dioxide 25.7 meq/L (21.0-32.0); Glucose,Random 156 mg/dL (74-106); Magnesium 1.9 mg/dL (1.5-2.5)
[2018-02-13 06:06] LABS: Glomerular Filtration Rate Greater Than 89 mL/min (>89)
[2018-02-13] MEDS: Heparin - SQ 10,000 UNITS/ML Vial SQ SCH ×3 (07:15→21:10)
[2018-02-13] MEDS: Metoprolol Tartrate 50 MG Tablet PO SCH ×2 (08:12→21:10)
[2018-02-13] MEDS: Insulin NovoLOG Aspart Correctional Sugar Inj SQ SCH ×5 (08:13→21:11)
--- NOTE | 2018-02-13 10:24 | P.DCO ---
- Physical Therapy Order: Evaluate and treat, Improve ambulation, Strength and gait training - Home Health Nursing Order: Medical education, Oxygen administration education, Nursing assessment with vital signs - Certification I have seen patient Allan Walker on 02/13/18. My clinical findings support the need for the requested home health care services because: Patient has SOB I certify that my clinical findings support that this patient is homebound because: Need for psychosocial assistance
[2018-02-13] MEDS: Loperamide 2 MG Capsule PO PRN (10:28)
--- NOTE | 2018-02-13 10:28 | P.PN ---
Subjective Interval history: Follow-up fatigue. Today he feels much better back to his baseline. He is requesting a front wheeled walker as recommended by physical therapy. Physical Exam Vital signs: Vital Signs 02/12/18 12:00 02/12/18 16:00 02/12/18 20:00 Temperature 97.5 F L 97.2 F L 97.8 F Pulse Rate 61 59 L 59 L Respiratory Rate 20 20 20 Blood Pressure 123/32 L 109/56 L 121/69 Pulse Oximetry 97 96 96 02/13/18 00:00 02/13/18 04:00 02/13/18 07:37 Temperature 97.1 F L 98.2 F 98.1 F Pulse Rate 59 L 57 L Respiratory Rate 20 20 20 Blood Pressure 98/52 L 110/58 L 96/53 L Pulse Oximetry 97 98 96 02/13/18 08:00 Temperature 98.1 F Pulse Rate 57 L Respiratory Rate 20 Blood Pressure 96/53 L Pulse Oximetry 96 Intake & Output 02/12/18 02/13/18 02/13/18 18:59 06:59 18:59 Intake Total 480 / 480 120 / 120 Output Total 950 / 950 Balance -470 / -470 120 / 120 Weight 90 kg Intake: Oral 480 / 480 120 / 120 Output: Urine 950 / 950 Other: # Voids 2 3 # Bowel Movements 1 Narrative: GENERAL: Well-developed, well-nourished in no distress SKIN: Warm and dry. CARDIOVASCULAR: Regular rate and rhythm. RESPIRATORY: No accessory muscle use. Clear to auscultation. Breath sounds equal bilaterally. GASTROINTESTINAL: Abdomen soft, non-tender, nondistended. MUSCULOSKELETAL: Extremities without clubbing, cyanosis, or edema. No obvious deformities. NEUROLOGICAL: Awake and alert. No obvious cranial nerve deficits. Motor grossly within normal limits. Five out of 5 muscle strength in the arms and legs. Normal speech. PSYCHIATRIC: Appropriate mood and affect; insight and judgment normal. Results - Labs CBC & Chem 7: 02/12/18 05:00 02/13/18 04:37 Laboratory Results - last 24 hr 02/12/18 02/12/18 02/12/18 12:19 15:33 20:30 Sodium Potassium Chloride Carbon Dioxide Anion Gap BUN Creatinine Estimated GFR POC Glucose 267 H 178 H 227 H Random Glucose Calcium Magnesium 02/13/18 04:37 Sodium 139 Potassium 3.7 Chloride 104 Carbon Dioxide 25.7 Anion Gap 9 BUN 12 Creatinine 0.69 Estimated GFR Greater than 89 POC Glucose Random Glucose 156 H Calcium 8.4 L Magnesium 1.9 - Imaging Impressions ITS Impressions Chest X-Ray 02/11/18 20:30 CONCLUSION: No focal infiltrates seen. Stable cardiomegaly. Chest CTA 02/12/18 00:00 CONCLUSION: 1. No evidence of pulmonary embolism 2. Small bilateral effusions. 3. Small bilateral lung nodules which will need to be followed - Procedures none Assessment and Plan - Assessment (1) COPD (chronic obstructive pulmonary disease) Code(s): J44.9 - Chronic obstructive pulmonary disease, unspecified Status: Acute - Plan This is a 72-year-old male with a history of coronary artery disease status post CABG, stent, COPD, chronic respiratory failure on home oxygen, diabetes mellitus, hypertension, TIA and chronic left shoulder pain. He presents to the emergency room complaining of fatigue for 3 days. Fatigue 2/2 heat exhaustion and COPD. Improved continue PT. Prolonged QT. Telemetry shows heart rate of 58. BP within normal limits. Continue metoprolol with hold parameters. Status post evaluation by cardiology Elevated BNP. Echocardiogram shows no LVH or motion wall abnormalities. Atypical chest pain with history of CAD status post CABG and stent. Ruled out for ME. Negative CTA for PE continue Plavix and metoprolol. Bilateral pulmonary nodules. Outpatient follow-up DVT prophylaxis with SCD and subcu heparin Discharge Planning: Discharge patient with home care Condition on discharge: Improved Regular Diet as tolerated Ad Rekha activity no driving Rx written: With walker Follow-up with primary care physician and cardiology
[2018-02-14] MEDS: Heparin - SQ 10,000 UNITS/ML Vial SQ SCH (05:40)
[2018-02-14] MEDS: Insulin NovoLOG Aspart Correctional Sugar Inj SQ SCH (08:40)
--- NOTE | 2018-02-14 08:47 | P.DS ---
Date of admission: 02/11/18 21:58 Primary care physician: Leo Raines MD Brief History from admission: This is a 72-year-old male with a history of coronary artery disease status post CABG, stent, COPD, chronic respiratory failure on home oxygen, diabetes mellitus, hypertension, TIA and chronic left shoulder pain. Family history of dementia. He presents to the emergency room complaining of fatigue for 3 days. Started over the weekend Saturday when he participated in a training to obtain a motorcycle license. He thought he had heat exhaustion. Since then he has been drinking Gatorade but continued to have fatigue which was even getting worse prompting ER visit. He also has associated anorexia. He felt his abdomen was distended making it difficult to take a deep breath. Denies abdominal pain, constipation, diarrhea or UTI symptoms. He has chronic dyspnea on exertion from his COPD which is stable. Last Saturday while attending [employer] services, he developed mild left chest discomfort scale of 1 to 2/10 for 1 hour. It recurred 2 more times that lasted less than 5 minutes. There was no radiation of pain or associated signs and symptoms. While being examined, he also complained of pleuritic left-sided chest pain. Denies leg pain and swelling but has neuropathy. Workup so far is remarkable for elevated BNP for which patient received Lasix in the emergency department, patient ruled out for PR with negative cardiac enzymes however his d-dimer is elevated and his EKG is abnormal with prolonged QT. TSH unremarkable. He denies taking new medications. All other systems reviewed negative DS: Diagnosis - Discharge Diagnosis (1) COPD (chronic obstructive pulmonary disease) Status: Acute DS: Summary Hospital Course: This is a 72-year-old male with a history of coronary artery disease status post CABG, stent, COPD, chronic respiratory failure on home oxygen, diabetes mellitus, hypertension, TIA and chronic left shoulder pain. He presents to the emergency room complaining of fatigue for 3 days. Fatigue 2/2 heat exhaustion and COPD. Improved continue PT. Prolonged QT. Telemetry shows heart rate of 58. BP within normal limits. Continue metoprolol with hold parameters. Status post evaluation by cardiology Elevated BNP. Echocardiogram shows no LVH or motion wall abnormalities. Atypical chest pain with history of CAD status post CABG and stent. Ruled out for PR. Negative CTA for PE continue Plavix and metoprolol. Bilateral pulmonary nodules. Outpatient follow-up DVT prophylaxis with SCD and subcu heparin - Time Spent with Patient Total time spent providing and/or coordinating discharge services: Less than 30 minutes - Quality: VTE Deep Vein Thrombosis/Pulmonary Embolism Present on Admission: No Exam Vital signs: Vital Signs 02/13/18 12:00 02/13/18 16:00 02/13/18 20:00 Temperature 98.1 F 98.0 F 97.5 F L Pulse Rate 58 L 60 60 Respiratory Rate 14 15 18 Blood Pressure 99/57 L 100/59 L 127/84 Pulse Oximetry 94 L 96 95 02/14/18 00:00 Temperature 97.6 F Pulse Rate 54 L Respiratory Rate 18 Blood Pressure 90/53 L Pulse Oximetry 96 Intake & Output 02/13/18 02/14/18 02/14/18 18:59 06:59 18:59 Output Total 1000 / 1000 Balance -1000 / -1000 Weight 89.1 kg Output: Urine 1000 / 1000 Other: # Voids 3 Narrative: GENERAL: Well-developed, well-nourished in no distress SKIN: Warm and dry. CARDIOVASCULAR: Regular rate and rhythm. RESPIRATORY: No accessory muscle use. Clear to auscultation. Breath sounds equal bilaterally. GASTROINTESTINAL: Abdomen soft, non-tender, nondistended. MUSCULOSKELETAL: Extremities without clubbing, cyanosis, or edema. No obvious deformities. NEUROLOGICAL: Awake and alert. No obvious cranial nerve deficits. Motor grossly within normal limits. Five out of 5 muscle strength in the arms and legs. Normal speech. PSYCHIATRIC: Appropriate mood and affect; insight and judgment normal. Results Procedures completed during hospitalization: none Labs on day of discharge: Labs from last 24 hours 02/14/18 02/13/18 02/13/18 07:27 19:47 16:07 POC Glucose 192 H 167 H 228 H 02/13/18 12:01 POC Glucose 231 H - Impressions ITS Impressions Chest X-Ray 02/11/18 20:30 CONCLUSION: No focal infiltrates seen. Stable cardiomegaly. Chest CTA 02/12/18 00:00 CONCLUSION: 1. No evidence of pulmonary embolism 2. Small bilateral effusions. 3. Small bilateral lung nodules which will need to be followed Discharge Plan - Discharge Disposition Patient Disposition: Disch W/Home Health Service - Discharge Condition Condition: Stable - Discharge Order Discharge Orders: Discharge Order (Routine); Ordered 02/13/18 Ordered By: Manfred Abando - Physicians Team Primary Care Provider: Leo Raines Attending Provider: Manfred Crow Other Providers: Sharla Magdaleno ; Karl Santana MD
[2018-02-14] MEDS: Metoprolol Tartrate 50 MG Tablet PO SCH (10:39)
--- NOTE | 2018-02-15 17:49 | ECG ---
Date Performed: 02/12/2018 Time Performed: 08:08:32 PTAGE: 72 years EKG: Sinus rhythm WITH SHORT WA INTERVAL NONSPECIFIC ST & T-WAVE ABNORMALITY PROLONGED QT INTERVAL ABNORMAL ECG PREVIOUS TRACING : 02/11/2018 20.40 DOCTOR: Cortes Schaefer Interpretating Date/Time 02/15/2018 17:41:17
== END 2018-02-14 10:35 | disposition home health service (06) ==
LOC: PHED 19:59 → PHEDA 19:59 → PH3 23:30
PROVIDERS: ADMIT Internal Medicine; ATTEND Internal Medicine
DX: E11.9 Type 2 diabetes mellitus without complications; Z95.5 Presence of coronary angioplasty implant and graft; Z95.1 Presence of aortocoronary bypass graft; I25.10 Atherosclerotic heart disease of native coronary artery without angina pectoris; J96.10 Chronic respiratory failure, unspecified whether with hypoxia or hypercapnia; Z79.84 Long term (current) use of oral hypoglycemic drugs; I35.1 Nonrheumatic aortic (valve) insufficiency; E78.5 Hyperlipidemia, unspecified; Z96.651 Presence of right artificial knee joint; J44.9 Chronic obstructive pulmonary disease, unspecified; Z99.81 Dependence on supplemental oxygen; I11.9 Hypertensive heart disease without heart failure; Z86.73 Personal history of transient ischemic attack (TIA), and cerebral infarction without residual deficits; I45.81 Long QT syndrome; G62.9 Polyneuropathy, unspecified; X30.XXXA Exposure to excessive natural heat, initial encounter; Z79.02 Long term (current) use of antithrombotics/antiplatelets; T67.5XXA Heat exhaustion, unspecified, initial encounter